=== PATIENT | male | born 1945 | race Caucasian/White ===

== ENCOUNTER 2020-05-08 08:37 | Outpatient (CLI) | payer MEDICARE, OTHER, SELFPAY ==
--- NOTE | ~2020-05-08 | CT_ITS ---
EXAMINATION: CT hip LT wo con DATE: 05/08/2020 09:04 INDICATION: Left hip pain TECHNIQUE: High resolution computed tomography (CT) of the left hip was performed without intravenous contrast. Additional sagittal and coronal reconstructions were performed. Automated exposure control and iterative reconstruction technique were employed. The dose-length product was 564.02 mGy-cm. COMPARISON: Left hip MRI dated 12/09/2018 FINDINGS: Bipolar type right hip hemiarthroplasty on the dining room helper topogram which results in some metallic streak a rtifact which extends across the pelvis and left hip. Old healed fracture left femoral neck which is fixed with 3 lag screws with washers. The distal tip of one of the fixation screws extends to the lev el of but not definitively beyond the articular cortex. The heads of the screws have backed out sligh tly from the lateral margin of the cortex at the greater trochanter suggesting some impaction of the fracture occurring during the course of healing. There is an approximately 4 x 4 x 2 cm fluid collect ion situated between the greater trochanter at the site of the screws in the more superficial fascia of the gluteus jenae and tensor fascia pooja consistent with trochanteric bursitis. Mild left hip os teoarthritis with mild nonuniform joint space narrowing and small marginal osteophytes about the left femoral head and acetabulum. No acute fractures identified. 4 mm retrolisthesis L5 on S1 with severe disc height loss with vacuum phenomena and mild degenerative endplate changes. Disc bulges resulting in mild central canal stenosis at L4-L5. Lower lumbar facet osteoarthritis, moderate on the right and mild on the left at L4-L5 and moderate bilaterally at L5-S1 . This contributes to moderate neural from stenosis on the left at L5-S1 and mild stenosis at the rem aining L4-L5 and L5-S1 neural foramina. Atherosclerotic calcifications in the bilateral] arteries. Pr ostatomegaly. No free fluid in the pelvis. No pathologically enlarged left pelvic or inguinal lymphad enopathy. IMPRESSION: 1. Screw fixation of an old healed fracture of the left femoral neck with mild osteoarthritis at the left hip. 2. 4 x 4 by 2 cm trochanteric bursal fluid collection surrounding the mildly backed out heads of the left femoral neck fixation screws consistent with trochanteric bursitis. 3. Moderate to severe lumbosacral spondylosis. Reviewed, dictated and finalized at location B. PACKER IMPRESSION: 1. Screw fixation of an old healed fracture of the left femoral neck with mild osteoarthritis at the left hip. 2. 4 x 4 by 2 cm trochanteric bursal fluid collection surrounding the mildly ba cked out heads of the left femoral neck fixation screws consistent with trochan teric bursitis. 3. Moderate to severe lumbosacral spondylosis.
== END 2020-05-08 08:38 | disposition home or self-care (01) ==
PROVIDERS: PCP Family Medicine; Visit Provider Orthopaedic Surgery
DX: M47.896 Other spondylosis, lumbar region (principal)
CPT/HCPCS: 73700

== ENCOUNTER 2020-05-28 08:35 | Outpatient (CLI) | payer MEDICARE, OTHER, SELFPAY ==
--- NOTE | 2020-05-28 08:30 | ECG_ITS ---
Measurements Intervals [place] Rate: 68 P: 5 WI: 168 QRS: 9 QRSD: 94 T: 66 QT: 401 QTc: 427 Interpretive Statements SINUS RHYTHM BASELINE ARTIFACT- I, II, AVR, AVL, AVF NORMAL ECG Electronically Signed On 05-28-2020 9:32:38 CDT by Gareth Kulkarni D.O.
== END 2020-05-28 08:36 | disposition home or self-care (01) ==
PROVIDERS: PCP Family Medicine; Visit Provider Orthopaedic Surgery
DX: Z01.818 Encounter for other preprocedural examination (principal); I10 Essential (primary) hypertension
CPT/HCPCS: 93005

== ENCOUNTER → 2020-05-29 00:11 | Outpatient (CLI) | payer MEDICARE, OTHER, SELFPAY ==
[2020-05-29 17:44] LABS: SARS-CoV-2 RNA PCR Negative
== END ==
PROVIDERS: PCP Family Medicine; Visit Provider Orthopaedic Surgery
DX: Z01.812 Encounter for preprocedural laboratory examination (principal); Z20.822 Contact with and (suspected) exposure to COVID-19
CPT/HCPCS: C9803; U0003; U0005

== ENCOUNTER 2020-06-01 00:59 | Day surgery (SDC) | payer MEDICARE, OTHER, SELFPAY ==
[2020-05-25 14:56] VITALS: BMI 25.7
--- NOTE | 2020-05-29 13:32 | PM.IMHP ---
H&P: HPI History of Present Illness Date/Time: 05/29/20 13:32 74 y/o male patient of Dr. Leyva.Patient presents today for removal hardware left hip. He had a valgus impacted femoral neck fracture that was treated with percutaneous pinning in 2018. during his recovery is had some impaction of the fracture and the screws have become prominent in the lateral aspect of the hip causing irritation regular basis. Also 1 of the screws is very close to the subchondral bone and there was concern that this may penetrate through to the hip joint itself. He has been having continued symptoms of irritation of the bursal tissue and feels he would like to have the screws removed. <TONEY Allen - Last Filed: 05/29/20 13:42> Chief Complaint: Painful hardware left hip <TONEY Allen - Last Filed: 05/29/20 13:42> Review of Systems Review of Systems: All systems reviewed & are unremarkable except as noted in HPI and below <TONEY Allen - Last Filed: 05/29/20 13:42> [facility] Past Medical History Medical History: Medical History Altered taste Broken hip left hip August 2019 Chronic neck pain Essential (primary) hypertension GERD without esophagitis Hyperlipidemia, unspecified Major depressive disorder, recurrent episode, unspecified Migraine Primary osteoarthritis of both hands <TONEY Allen - Last Filed: 05/29/20 13:42> Surgical History Surgical History: Surgical History History of repair of left hip joint 09/2018 History of right hip replacement 11/2000 [place] teeth extracted <TONEY Allen - Last Filed: 05/29/20 13:42> Social History Social History: Social History Smoking status: Never smoker Second hand tobacco smoke exposure: No Alcohol intake: current Drinks per week: 1 Substance use: never Substance use type: does not use Living arrangements: with family Gender identity (if verbalized by the patient): Male Spiritual care concerns: No <TONEY Allen - Last Filed: 05/29/20 13:42> Meds Home Medications and Allergies Home medications: Home Medications Medication Instructions Recorded Confirmed Type amlodipine 10 mg tablet 10 mg PO DAILY #90 tablet 03/09/20 06/01/20 Rx [id number]-crlhojrm 1 tablet PO Q4-6H PRN #180 tablet 03/31/20 06/01/20 Rx 50 mg-325 mg-40 mg tablet alprazolam 0.5 mg tablet 0.5 mg PO .prn PRN tablet 04/22/20 06/01/20 History Ca carb-Ca gluc-Mg ox-Mg gluco 1 tablet PO DAILY 05/25/20 06/01/20 History [Calcium Magnesium] celecoxib 200 mg PO DAILY 05/25/20 06/01/20 History cyanocobalamin (vitamin B-12) 1,000 mcg PO DAILY 05/25/20 06/01/20 History lamotrigine 50 mg PO HS 05/25/20 06/01/20 History milk thistle fruit extct,fruit 1 cap PO DAILY 05/25/20 06/01/20 History [Milk Thistle Extract] multivitamin,ay-qjeo-wxgkusim 1 tablet PO DAILY 05/25/20 06/01/20 History [Complete Multivitamin] selenium [Selenimin] 50 mcg PO DAILY 05/25/20 06/01/20 History venlafaxine 150 mg PO BID 05/25/20 06/01/20 History atorvastatin 40 mg PO DAILY 06/01/20 06/01/20 History ezetimibe 10 mg PO DAILY 06/01/20 06/01/20 History <TONEY Allen - Last Filed: 05/29/20 13:42> Allergies/Adverse reactions: Allergies Allergy/AdvReac Type Severity Reaction Status Date / Time bacitracin Allergy Severe BLISTERS Verified 06/01/20 10:14 neomycin Allergy Severe BLISTERS Verified 06/01/20 10:14 polymyxin B Allergy Severe BLISTERS Verified 06/01/20 10:14 venom-honey bee Allergy Severe ANAPHALACTI Verified 05/25/20 14:19 C codeine AdvReac Severe ITCHING Verified 06/01/20 10:14 <TONEY Allen - Last Filed: 05/29/20 13:42> Exam Narrative: Exam Narrative: 74-year-old male very alert pleasant. He walks well without limp. He has some gxmp-kd-wabzakfm ten
[2020-06-01] VITALS (9 sets, daily range): BP systolic 87–175; BP diastolic 48–90; PULSE 52–88; RESP 8–20; TEMP 36.6–36.7; O2SAT 97–99
--- NOTE | ~2020-06-01 | XR_ITS ---
EXAMINATION: XR surgery orthopedic EXAM DATE: 06/01/2020 13:16 INDICATION: Left hip hardware removal. TECHNIQUE: Fluoroscopy used during left hip lag screw removal performed by Dr. Tank Viveros MD. Radiologist was not present for the imaging or procedure. Total fluoroscopic time of 0.4 minutes. A total of 4 images obtained for the exam. The DAP for this procedure was 0.08 mGym2. FINDINGS: Initial image demonstrates 3 left hip lag screws, subsequent images demonstrate these havi ng been removed. Correlate with procedure note. IMPRESSION: Fluoroscopy used during left hip screw removal. Reviewed, dictated and finalized at location A.
[2020-06-01] MEDS: ACETAMINOPHEN 500 MG TABLET 1000 MG PO (10:27)
[2020-06-01] MEDS: LACTATED RINGERS 1,000 ML 30 ML IV CONT ×2 (11:05→13:15)
[2020-06-01] MEDS: KETOROLAC 15 MG/ML VIAL (*BKC) IV PUSH (11:10)
--- NOTE | 2020-06-01 11:17 | WPDHPUPDATE1 ---
History and Physical Update Update Date/Time: 06/01/20 11:17 History and Physical has been reviewed, including an updated exam of the patient. There are NO changes in the patient's condition. Risks, benefits, and alternatives have been discussed and questions answered. Patient agrees to proceed with procedure.
--- NOTE | 2020-06-01 11:46 | WPDANESEPPF ---
Anes - Initial Pre Proc Eval Procedure: Operation Date: 06/01/20 12:00 Proposed Procedures p Removal Hardware Left Hip - Tank Viveros MD Date/Time: 06/01/20 11:46 Surgeon: Tank Viveros MD Pre Op Diagnosis: Left Hip Pain Patient Data Age: 74 Gender: M Height: 6 ft Weight: 81.2 kg Last Vital Signs Temp 36.7 C 06/01/20 10:12 Pulse 88 06/01/20 10:12 Resp 20 06/01/20 10:12 BP 175/87 H 06/01/20 10:12 Pulse Ox 99 06/01/20 10:12 Allergies Allergy/AdvReac Type Severity Reaction Status Date / Time bacitracin Allergy Severe BLISTERS Verified 06/01/20 10:14 neomycin Allergy Severe BLISTERS Verified 06/01/20 10:14 polymyxin B Allergy Severe BLISTERS Verified 06/01/20 10:14 venom-honey bee Allergy Severe ANAPHALACTI Verified 05/25/20 14:19 C codeine AdvReac Severe ITCHING Verified 06/01/20 10:14 Home Medications Medication Instructions Recorded Confirmed Type amlodipine 10 mg tablet 10 mg PO DAILY #90 tablet 03/09/20 06/01/20 Rx dmpgpgiwfw-zkldhoihcavsa-jmzpgiyz 1 tablet PO Q4-6H PRN #180 tablet 03/31/20 06/01/20 Rx 50 mg-325 mg-40 mg tablet alprazolam 0.5 mg tablet 0.5 mg PO .prn PRN tablet 04/22/20 06/01/20 History Ca carb-Ca gluc-Mg ox-Mg gluco 1 tablet PO DAILY 05/25/20 06/01/20 History [Calcium Magnesium] celecoxib 200 mg PO DAILY 05/25/20 06/01/20 History cyanocobalamin (vitamin B-12) 1,000 mcg PO DAILY 05/25/20 06/01/20 History lamotrigine 50 mg PO HS 05/25/20 06/01/20 History milk thistle fruit extct,fruit 1 cap PO DAILY 05/25/20 06/01/20 History [Milk Thistle Extract] multivitamin,lf-gawm-oojebuwx 1 tablet PO DAILY 05/25/20 06/01/20 History [Complete Multivitamin] selenium [Selenimin] 50 mcg PO DAILY 05/25/20 06/01/20 History venlafaxine 150 mg PO BID 05/25/20 06/01/20 History atorvastatin 40 mg PO DAILY 06/01/20 06/01/20 History ezetimibe 10 mg PO DAILY 06/01/20 06/01/20 History Patient hx anesthesia problems: other (taste change ) Family hx anesthesia problems: none PMFSH Past Medical History Medical History Altered taste Broken hip left hip August 2019 Chronic neck pain Essential (primary) hypertension GERD without esophagitis Hyperlipidemia, unspecified Major depressive disorder, recurrent episode, unspecified Migraine Primary osteoarthritis of both hands Surgical History Surgical History History of repair of left hip joint 09/2018 History of right hip replacement 11/2000 [place] teeth extracted Social History Social History Smoking status: Never smoker Second hand tobacco smoke exposure: No Alcohol intake: current Drinks per week: 1 Substance use: never Substance use type: does not use Living arrangements: with family Gender identity (if verbalized by the patient): Male Spiritual care concerns: No Anes - Eval Final PreProcedure Day of Procedure 06/01/20 11:46 Patient weight: normal Heart: regular rate and rhythm Lungs: clear to auscultation Airway: Mallampati scale class II Neurological: alert and oriented Last oral intake: >/= 8 hours ASA classification: III Emergent: no Anesthetic plan: proceed Anesthesia type and monitoring: general LMA and standard monitoring Other findings: Tiva Informed Consent: The patient's anesthetic plan and its attendant risks and benefits were discussed with the patient/family/POA. Questions were solicited and answers provided to the satisfaction of the patient/family/POA.
[2020-06-01] MEDS: ceFAZolin 2 GM/D5W 50 ML 2 GM/50 ML BAG IVPB (11:57)
[2020-06-01] MEDS: ceFAZolin SODIUM 1 GM VIAL IV PUSH (12:43)
--- NOTE | 2020-06-01 13:21 | P.OP_ITS ---
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 Post-op diagnosis: same Procedure performed: For removal of painful hardware left femoral neck. Description of procedure: Patient was brought to the operating room and sedation was given and he was placed on the fracture table and the left hip prepped draped usual fashion. The right hip was flexed abducted out of the way case he needed lateral x-ray views to find loose washers. The previous incision was utilized approximately 1/2 inches in length after administration of 10 cc of 1% plain local lidocaine. The fascia was incised longitudinally in line with the incision. There is bursal tissue underneath there was hypertrophic over the screw heads and this was excised. The screws were localized wanted at time by inserting a guidewire and then the screwdriver over the guidewire and the time we were careful to free the washer up and secured so would come out with screw and we removed all 3 screws and washers in this fashion without difficulty. The wound was irrigated thoroughly with antibiotic solution hemostasis was achieved. The fascia was then closed with interrupted 1. Vicryl sutures the skin with 2 subcutaneous Vicryl and glue and a Mepilex dressing applied the patient transferred postop recovery good condition. There no complications. Implants: 7.3 mm Synthes cannulated screws and washers were removed. Anesthesia: MAC and local Surgeon: Tank Viveros MD Resident Assistant: Rhianna Estimated blood loss (mL): 5 Drains: No Packing: No Pathology: none sent Complications: No immediate complications Condition: stable Disposition: PACU
== END 2020-06-01 15:05 | disposition home or self-care (01) ==
PROVIDERS: PCP Family Medicine; Visit Provider Orthopaedic Surgery
PROC: (CPT 20680; principal; 2020-06-01 12:00)
DX: T84.84XA Pain due to internal orthopedic prosthetic devices, implants and grafts, initial encounter (principal); Y83.8 Other surgical procedures as the cause of abnormal reaction of the patient, or of later complication, without mention of misadventure at the time of the procedure; M25.552 Pain in left hip; I10 Essential (primary) hypertension; K21.9 Gastro-esophageal reflux disease without esophagitis; E78.5 Hyperlipidemia, unspecified; F32.9 Major depressive disorder, single episode, unspecified
CPT/HCPCS: 20680; A9270; J0690; J1100; J1885; J2370; J2405; J2704; J3010; J7120

== ENCOUNTER 2020-07-15 11:57 | Outpatient (CLI) | payer MEDICARE, OTHER, SELFPAY ==
[2020-07-15 13:41] LABS: Vitamin D 25 Hydroxy 36.3 ng/mL
== END 2020-07-15 11:58 | disposition home or self-care (01) ==
PROVIDERS: PCP Family Medicine; Visit Provider Orthopaedic Surgery
DX: E55.9 Vitamin D deficiency, unspecified (principal)
CPT/HCPCS: 36415; 82306

== ENCOUNTER 2020-07-23 12:01 | Outpatient (CLI) | payer MEDICARE, OTHER, SELFPAY ==
[2020-07-23 13:24] LABS: Basophils Percent Auto 0.5 % (0.2-1.2); Eosinophils Absolute Auto 0.3 K/mm3 (0-0.3); Eosinophils Percent Auto 5.1 % (0-4.4); Hematocrit 42.5 % (42.0-52.0); Immature Granulocyte Absolute 0.02 K/mm3 (0.00-0.031); Immature Granulocyte Percent A 0.4 % (0-0.5); Lymphocytes Absolute Auto 1.36 K/mm3 (0.9-3.2); Lymphocytes Percent Auto 24.7 % (18.3-44.2); Mean Corpuscular HGB Conc 32.9 g/dl (32-36); Mean Platelet Volume 8.8 fl (7.4-10.4); Monocytes Absolute Auto 0.6 K/mm3 (0.1-0.6); Monocytes Percent Auto 11.3 % (2.6-8.5); Neutrophils Absolute Auto 3.2 K/mm3 (1.3-6.7); Platelet Count Result 270 k/mm3 (150-375); Red Blood Count 4.52 M/mm3 (4.6-6.20); Red Cell Distribution Width 12.4 % (11.5-14.5); White Blood Count 5.5 K/mm3 (4.5-10.0)
[2020-07-23 13:40] LABS: Hemoglobin A1C 5.4 % (<5.7)
[2020-07-23 13:49] LABS: Urine Cotinine NEGATIVE
[2020-07-23 16:46] LABS: Albumin Level 4.2 g/dL (3.5-5.1); Anion Gap 5 mmol/L (8-16); Blood Urea Nitrogen 23 mg/dL (9-20); Calcium 9.7 mg/dL (8.4-10.2); Carbon Dioxide 34 mmol/L (22-30); Chloride 100 mmol/L (98-107); Estimated Glomerular Filt Rate > 60; Glucose 90 mg/dL (75-110); Potassium 4.3 mmol/L (3.4-5.0); Sodium 139 mmol/L (137-145)
== END 2020-07-23 12:02 | disposition home or self-care (01) ==
LOC: ANHSURGERY 12:05
PROVIDERS: PCP Family Medicine; Visit Provider Orthopaedic Surgery
DX: Z01.812 Encounter for preprocedural laboratory examination (principal); M87.052 Idiopathic aseptic necrosis of left femur
CPT/HCPCS: 80048; 80307; 82040; 83036; 85025; 87070

== ENCOUNTER → 2020-08-04 03:06 | Outpatient (CLI) | payer MEDICARE, OTHER, SELFPAY ==
[2020-08-04 18:14] LABS: SARS-CoV-2 RNA PCR Negative
== END ==
PROVIDERS: PCP Family Medicine; Visit Provider Orthopaedic Surgery
DX: Z01.812 Encounter for preprocedural laboratory examination (principal); Z20.822 Contact with and (suspected) exposure to COVID-19
CPT/HCPCS: C9803; U0003; U0005

== ENCOUNTER 2020-08-07 01:29 | Day surgery (SDC) | payer MEDICARE, OTHER, SELFPAY ==
[2020-07-23 12:32] VITALS: BP 140/80; PULSE 74; RESP 20; TEMP 36.5; O2SAT 94; BMI 25.2
--- NOTE | 2020-08-05 08:40 | PM.IMHP ---
H&P: HPI History of Present Illness Date/Time: 08/05/20 08:[id number] male patient of Dr. Leyva who presents today for a left anterior total hip arthroplasty. Patient sustained a left femoral neck fracture in 2018. This was treated in [place] with bending. 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 The screws did become prominent and were removed in May of this year which gave him temporary relief the soreness than lateral hip from the prominent screws. Unfortunately since that time he has had continued collapse the femoral head as well as fracturing of the superior aspect of the femoral head. Patient and is in miserable pain daily. He has been using crutches on a daily basis to keep weight off the leg to try to control his symptoms. Patient feels he is ready proceed with total hip arthroplasty at this point rather continue nonsurgical treatment. <TONEY Allen - Last Filed: 08/05/20 08:47> Chief Complaint: Left hip avascular necrosis <TONEY Allen - Last Filed: 08/05/20 08:47> Review of Systems Review of Systems: All systems reviewed & are unremarkable except as noted in HPI and below <TONEY Allen - Last Filed: 08/05/20 08:47> [facility] Past Medical History Medical History: Medical History Altered taste Broken hip left hip August 2019 Chronic neck pain Essential (primary) hypertension GERD without esophagitis Hyperlipidemia, unspecified Major depressive disorder, recurrent episode, unspecified Migraine Primary osteoarthritis of both hands <TONEY Allen - Last Filed: 08/05/20 08:47> Surgical History Surgical History: Surgical History History of repair of left hip joint 09/2018 History of right hip replacement 11/2000 [place] teeth extracted <TONEY Allen - Last Filed: 08/05/20 08:47> Social History Social History: Social History Smoking status: Never smoker Second hand tobacco smoke exposure: No Alcohol intake: current Drinks per week: 1 Substance use: never Substance use type: does not use Living arrangements: with family Gender identity (if verbalized by the patient): Male Spiritual care concerns: No <TONEY Allen - Last Filed: 08/05/20 08:47> Meds Home Medications and Allergies Home medications: Home Medications Medication Instructions Recorded Confirmed Type alprazolam 0.5 mg tablet 0.5 mg PO .prn PRN tablet 04/22/20 08/07/20 History Ca carb-Ca gluc-Mg ox-Mg gluco 1 tablet PO DAILY 05/25/20 08/07/20 History [Calcium Magnesium] celecoxib 200 mg PO QAM 05/25/20 08/07/20 History lamotrigine 50 mg PO HS 05/25/20 08/07/20 History milk thistle fruit extct,fruit 1 cap PO DAILY 05/25/20 08/07/20 History [Milk Thistle Extract] multivitamin,xd-kbjx-cnxdheap 1 tablet PO DAILY 05/25/20 08/07/20 History [Complete Multivitamin] venlafaxine 150 mg PO BID 05/25/20 08/07/20 History ezetimibe [Zetia] 10 mg PO DAILY 06/01/20 08/07/20 History hydrocodone 5 mg-acetaminophen 325 0.5 tablet PO Q4-6H tablet 07/20/20 08/07/20 History mg tablet amlodipine 10 mg PO QAM 07/23/20 08/07/20 History atorvastatin 40 mg tablet See Rx Instructions .ROUTE 07/24/20 Rx .COMPLEX #90 tablet <TONEY Allen - Last Filed: 08/05/20 08:47> Allergies/Adverse reactions: Allergies Allergy/AdvReac Type Severity Reaction Status Date / Time bacitracin Allergy Severe BLISTERS Verified 08/07/20 06:35 neomycin Allergy Severe BLISTERS Verified 08/07/20 06:35 polymyxin B Allergy Severe BLISTERS Verified 08/07/20 06:35 venom-honey bee Allergy Severe ANAPHALACTI Verified 08/07/20 06:35 C codeine AdvReac Severe Hallucinating Verified 08/07/20 06:35 & ITCHING <TONEY Allen - Last Filed: 08/05/20 08:47> Exam Narrative: Exam Narrative: 75-y
[2020-08-07] VITALS (13 sets, daily range): BP systolic 108–198; BP diastolic 55–91; PULSE 63–98; RESP 9–20; TEMP 36–36.8; O2SAT 95–100; BMI 24.6
--- NOTE | ~2020-08-07 | XR_ITS ---
EXAMINATION: XR surgery orthopedic EXAM DATE: 08/07/2020 11:21 INDICATION: Anterior approach left hip arthroplasty. TECHNIQUE: Fluoroscopy used during left hip arthroplasty performed by Dr. Tank Viveros MD. Radi ologist was not present for the imaging or procedure. Total fluoroscopic time of 45 seconds. The DA P for this procedure was 0.25 mGym2. A total of 3 images sent to PACS from the exam. FINDINGS: Frontal projections demonstrates left hip arthroplasty hardware in expected position. Cor relate with procedure note. IMPRESSION: Fluoroscopy used during left hip arthroplasty. Reviewed, dictated and finalized at location B.
--- NOTE | ~2020-08-07 | XR_ITS ---
EXAMINATION: XR hip LT 1V w AP pelvis EXAM DATE: 08/07/2020 11:43 INDICATION: Left arthroplasty. TECHNIQUE: Frontal projection pelvis (bilateral arthroplasty hardware imaged), lateral crosstable pr ojection left hip. Both obtained immediately postoperative. FINDINGS: Left hip arthroplasty with some gas overlying the surgical site. Hardware is in expected p osition. Patient had previous right hip arthroplasty. IMPRESSION: Arthroplasty hardware in expected position. Reviewed, dictated and finalized at location B.
[2020-08-07] MEDS: LACTATED RINGERS 1,000 ML 30 ML IV CONT ×2 (06:50→11:46)
[2020-08-07] MEDS: ACETAMINOPHEN 500 MG TABLET 1000 MG PO ×3 (06:50→17:58)
[2020-08-07] MEDS: TRANEXAMIC ACID 1,000MG/ISO100 1,000 MG/100 ML BAG 200 MG IVPB (06:55)
--- NOTE | 2020-08-07 06:58 | WPDHPUPDATE1 ---
History and Physical Update Update Date/Time: 08/07/20 06:58 History and Physical has been reviewed, including an updated exam of the patient. There are NO changes in the patient's condition. Risks, benefits, and alternatives have been discussed and questions answered. Patient agrees to proceed with procedure.
--- NOTE | 2020-08-07 07:02 | WPDANESEPPF ---
Anes - Initial Pre Proc Eval Procedure: Operation Date: 08/07/20 07:30 Proposed Procedures p Left Total Hip Arthroplasty, Direct Anterior Approach - Tank Viveros MD Date/Time: 08/07/20 07:02 Surgeon: Tank Viveros MD Pre Op Diagnosis: AVN left hip Patient Data Age: 75 Gender: M Height: 6 ft Weight: 84.6 kg Last Vital Signs Temp 36.5 C 07/23/20 12:32 Pulse 74 07/23/20 12:32 Resp 20 07/23/20 12:32 BP 140/80 07/23/20 12:32 Pulse Ox 94 07/23/20 12:32 Allergies Allergy/AdvReac Type Severity Reaction Status Date / Time bacitracin Allergy Severe BLISTERS Verified 08/07/20 06:35 neomycin Allergy Severe BLISTERS Verified 08/07/20 06:35 polymyxin B Allergy Severe BLISTERS Verified 08/07/20 06:35 venom-honey bee Allergy Severe ANAPHALACTI Verified 08/07/20 06:35 C codeine AdvReac Severe Hallucinating Verified 08/07/20 06:35 & ITCHING Home Medications Medication Instructions Recorded Confirmed Type alprazolam 0.5 mg tablet 0.5 mg PO .prn PRN tablet 04/22/20 08/07/20 History Ca carb-Ca gluc-Mg ox-Mg gluco 1 tablet PO DAILY 05/25/20 08/07/20 History [Calcium Magnesium] celecoxib 200 mg PO QAM 05/25/20 08/07/20 History lamotrigine 50 mg PO HS 05/25/20 08/07/20 History milk thistle fruit extct,fruit 1 cap PO DAILY 05/25/20 08/07/20 History [Milk Thistle Extract] multivitamin,xb-ltqm-wsctwblv 1 tablet PO DAILY 05/25/20 08/07/20 History [Complete Multivitamin] venlafaxine 150 mg PO BID 05/25/20 08/07/20 History ezetimibe [Zetia] 10 mg PO DAILY 06/01/20 08/07/20 History hydrocodone 5 mg-acetaminophen 325 0.5 tablet PO Q4-6H tablet 07/20/20 08/07/20 History mg tablet amlodipine 10 mg PO QAM 07/23/20 08/07/20 History atorvastatin 40 mg tablet See Rx Instructions .ROUTE 05/21/21 Rx .COMPLEX #90 tablet Patient hx anesthesia problems: other (loss of taste slow rxn time) Family hx anesthesia problems: none PMFSH Past Medical History Medical History Altered taste Broken hip left hip August 2019 Chronic neck pain Essential (primary) hypertension GERD without esophagitis Hyperlipidemia, unspecified Major depressive disorder, recurrent episode, unspecified Migraine Primary osteoarthritis of both hands Surgical History Surgical History History of repair of left hip joint 09/2018 History of right hip replacement 11/2000 [place] teeth extracted Social History Social History Smoking status: Never smoker Second hand tobacco smoke exposure: No Alcohol intake: current Drinks per week: 1 Substance use: never Substance use type: does not use Living arrangements: with family Gender identity (if verbalized by the patient): Male Spiritual care concerns: No Anes - Eval Final PreProcedure Day of Procedure 08/07/20 07:02 Patient weight: normal Heart: regular rate and rhythm Lungs: clear to auscultation Airway: Mallampati scale class II Neurological: alert and oriented Last oral intake: >/= 8 hours ASA classification: III Emergent: no Anesthetic plan: proceed Anesthesia type and monitoring: general ETT and standard monitoring Other findings: TIVA Informed Consent: The patient's anesthetic plan and its attendant risks and benefits were discussed with the patient/family/POA. Questions were solicited and answers provided to the satisfaction of the patient/family/POA.
[2020-08-07] MEDS: ceFAZolin 2 GM/D5W 50 ML 2 GM/50 ML BAG IVPB (07:45)
[2020-08-07] MEDS: ceFAZolin SODIUM 1 GM VIAL 3 GM IRRIGATION (10:02)
[2020-08-07] MEDS: ceFAZolin SODIUM 1 GM VIAL IV PUSH (11:08)
[2020-08-07] MEDS: TRANEXAMIC ACID 1,000 MG/10 ML AMPUL 1000 MG IV PUSH (11:09)
--- NOTE | 2020-08-07 11:36 | PM.PROC ---
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 He received 2 g of Ancef weight based vancomycin 1 g of tranexamic acid preoperatively. He was placed on the OSI [place] table. SCDs placed in the leg. The traction boots placed on the feet were well padded. Left hip was prepped draped usual fashion. A 10 cm longitudinal incision was made starting 3 cm lateral to the ASIS. The fascia over the tensor fascia pooja was exposed and incised longitudinally and elevated off the anterior 1/2 tensor fascia pooja muscle. The interval between tensor fascia pooja and rectus femoris developed. The ascending branches of the lateral femoral circumflex vessels were ligated with suture divided. Ileal capsular is was elevated off anterior capsule. The hip was abducted internally rotated and the gluteus minimus elevated off the lateral capsule. Standard capsulotomy was performed. Femoral neck osteotomy was made according to preoperative templating. The bone density in the femoral neck was only fair. Anterior capsule was elevated off anterior femur. We drilled a corkscrew into the femoral head and met no resistance to speak of and the corkscrew pulled out and we could see that the femoral head was in 2 have some the corkscrew was going in the fissure. The various pieces of the femoral head removed without difficulty and essentially he had advanced avascular necrosis of the entire femoral head. Sheets of articular cartilage with thin layer of subchondral bone were remaining in the joint which were removed. The femur was externally rotated and extended. The tip of the lateral capsule was excised. The interval between piriformis tendon and conjoined tendon was incised allowing the conjoined tendon to recess medially improving exposure. With the leg horizontal externally rotated the acetabulum was exposed. The labrum was excised and there E articular cartilage curetted from the acetabular fossa. We medialized the floor of the fovea with a 44 Reamer. We then reamed with the 51 53 and this did not reach the periphery to we removed the 55. Fifty-five trial was a nice snug fit. Therefore we lightly reamed with the 56 and we chose the 56 shell [place] which was impacted and fully seated at 40? of abduction and anteversion referenced off his anterior and posterior kaba. Excellent Press-Fit was achieved. A screw was inserted up into the ilium for additional fixation and the 36 mm inner diameter liner was fully seated without difficulty. The femur was externally rotated extended and a bur was used to enter the cancellous bone of the femoral neck because of the screw tracks that were fairly dense. I should mention that when we incised the capsule there was a moderate-sized clear yellow effusion. On severe through the cancellous bone at the mid cervical level the canal was follow consistent with significant osteopenia. We broached up to a size 8 Actis. We chose this stem as it has a collar and it is a fit and fill stem which this gentleman with a large cylindrical proximal femur would require. The 8 had torsional stability. We reduced this and trialed with the +5 neck standard offset which is what we templated to. Templating of course was difficult because he had a previous bipolar on the other side and deformity on the left side from his immediate postoperative films. This neck length restored the leg length to our preoperative plan but it was a little bit loose. We went up to the 8.5 which lengthen him a little bit more than we had wanted particularly since the right side was shorter after is bipolar, and the hip was still a little bit loose. I could see that a size 9 broach would likely fit
--- NOTE | 2020-08-07 13:10 | SUR.PHASEI ---
SLIGHT TREMOR NOTED IN RIGHT HAND; PATIENT STATES HE DID NOT THIS PRIOR TO SURGERY. DR. GALARZA NOTIFIED; INSTRUCTED TO MONITOR.
--- NOTE | 2020-08-07 13:31 | ADMGEN ---
This patient, Darian Quinones, was admitted to -. Patient/family oriented to hospital policies and general routines including ID bracelet, bed and alarms, visiting hours, pain management, procedures, bathroom and other care routines, personal items, smoking policy, room service/diet, and visiting hours. Information on how to activate the Rapid Response Team has been discussed. Patient/Family are encouraged to report perceived risks to care and to ask questions if they do not understand what they are told or what they should do.
--- NOTE | 2020-08-07 14:00 | PC.NURSE ---
Patient arrived from OR complaining of intense urge to void. Assisted patient to sit on side of bed and use urinal but no success. At 1400, patient still feeling intense urge to void. Assisted to bathroom via sunny steady and assisted with urinal. 5 cc bloody urine noted in urinal. Bladder scanned patient and 850 cc noted in bladder. Notified Rafia Hernández INSPECTOR [employer]AC[employer]ITIES of results and order received to straight cath patient. Straight cathed patient and no urine back initially. Irrigated with 60 cc normal saline and large clot obtained. After obtained, 1000 cc clear yellow urine returned. Patient had immediate relief of urinary symptoms. Will continue to monitor.
--- NOTE | 2020-08-07 14:36 | PM.IMCN ---
Assessment and Plan Assessment and plan (1) Urinary retention: Code(s): R33.9 - Retention of urine, unspecified Status: Acute Assessment and Plan: Of bladder scanner was performed and it shows 900 mL of urine in the bladder. The patient initially was straight cath without any urine return. The straight cath was irrigated and 3 small clots were obtained. The urine was than clear and draining without difficulty. I explained that we would only do a 1 time straight cath and not leave a Hickman catheter in there because I did not want to delay his discharge. The patient was draining urine without difficulty after this. In the event that he continues to have problems we make consult urology. However his urine was coming back clear after the 3 clots were obtained. (2) History of total left hip arthroplasty: Code(s): Z96.642 - Presence of left artificial hip joint Status: Acute Assessment and Plan: See postoperative note. Postop care per Ortho physician. DVT prophylaxis per orthopedic physician. PT and OT per orthopedic physician. Pain management per orthopedic physician (3) Anxiety: Code(s): F41.9 - Anxiety disorder, unspecified Status: Chronic Assessment and Plan: The patient is on Xanax p.r.n. he is also on Effexor (4) Hyperlipidemia, unspecified: Qualifiers: Hyperlipidemia type: unspecified Qualified Code(s): E78.5 - Hyperlipidemia, unspecified Code(s): E78.5 - Hyperlipidemia, unspecified Status: Chronic Assessment and Plan: Continue with Zetia (5) Essential (primary) hypertension: Code(s): I10 - Essential (primary) hypertension Status: Acute Assessment and Plan: Continue with amlodipine (6) Major depressive disorder, recurrent episode, unspecified: Qualifiers: Major depression episode severity: unspecified Qualified Code(s): F33.9 - Major depressive disorder, recurrent, unspecified Code(s): F33.9 - Major depressive disorder, recurrent, unspecified Status: Acute Assessment and Plan: Continue with Effexor. [facility] Data [facility] Consult Consult date: 08/07/20 Requesting Physician: Tank Viveros MD Primary Care Provider: Tess Leyva MD Consult Narrative Narrative: Darian Quinones is a 75 year old male who has a history of a left femoral neck fracture in 2019 that was pinned in [place]. The patient developed avascular necrosis following the pending. The patient has been having severe pain on a daily basis. The screws were became more prominent and they were removed May of this year. The patient has been ambulating by using crutches. The patient pretty much has been nonweightbearing. The pain was intolerable when he would bear weight. The patient was agreeable to proceed with a total hip arthroplasty to the left today. Please see operative note. Postoperatively the patient was having difficulty urinating. A bladder scan was performed and the scanner read as 900 mL in the bladder. The nurse performed a straight cath and no urine return was noted. We irrigated the straight catheter and obtained a small amount of blood clots. After that the urine was draining clearly in the straight cath. Patient states that he was getting relief from the distention from the distended bladder. The patient stated that he only has mild discomfort at this time. His drain is intact to the left hip. Please see Dr. viveros's operative note for the posttraumatic avascular necrosis left femoral head stage IV. This is a consultation on a regular sdc on the date of service on 08/07/2020. Review of Systems Review of Systems: All systems reviewed & are unremarkable except as noted in HPI and below Constitutional: Constitutional: Reports as per HPI and Reports no additional constitutional complaints Eyes: Eyes: Reports as per HPI and Reports no additional eye complaints ENT: Reports system reviewed and
[2020-08-07] MEDS: oxyCODONE HCL (*CRX) 5 MG TAB IR PO ×3 (15:22→21:11)
[2020-08-07 16:49] LABS: Hematocrit 35.7 % (42.0-52.0); Hemoglobin 11.6 g/dL (14.0-18.0)
[2020-08-07] MEDS: BENZOCAINE/MENTHOL (*BKC) 18 EA LOZENGE 1 LOZENGE PO (17:31)
[2020-08-07] MEDS: SENNA/DOCUSATE SODIUM TABLET 2 TAB PO (17:58)
--- NOTE | 2020-08-07 19:00 | PC.NURSE ---
Patient having trouble urinating again. Attempted several times and unable. Bladder scan reveals >450 cc urine in bladder. Notified Rafia Hernández APPLICATIONS ANALYST and orders received to insert redd catheter. Catheter inserted and no urine output. Irrigated with 60 cc normal saline and small clot removed. Urine began running freely - clear yellow. 525 cc urine obtained.
[2020-08-07] MEDS: APIXABAN 2.5 MG TABLET PO (21:10)
[2020-08-07] MEDS: lamoTRIgine 25 MG TABLET 50 MG PO (21:10)
[2020-08-07] MEDS: FAMOTIDINE 20 MG TABLET PO (21:10)
[2020-08-07] MEDS: VENLAFAXINE HCL XR 75 MG CAP.ER.24H 150 MG PO (21:11)
[2020-08-08 00:19] VITALS: BP 134/71; PULSE 89; RESP 18; TEMP 36.9; O2SAT 93
[2020-08-08] MEDS: ACETAMINOPHEN 500 MG TABLET 1000 MG PO ×3 (00:47→12:49)
[2020-08-08] MEDS: oxyCODONE HCL (*CRX) 5 MG TAB IR PO ×4 (00:47→16:03)
[2020-08-08 05:46] LABS: Basophils Percent Auto 0.1 % (0.2-1.2); Hematocrit 33.6 % (42.0-52.0); Immature Granulocyte Absolute 0.06 K/mm3 (0.00-0.031); Immature Granulocyte Percent A 0.6 % (0-0.5); Lymphocytes Absolute Auto 0.78 K/mm3 (0.9-3.2); Lymphocytes Percent Auto 8.4 % (18.3-44.2); Mean Corpuscular HGB Conc 32.7 g/dl (32-36); Mean Corpuscular Hemoglobin 30.8 pg (26-34); Mean Corpuscular Volume 94.1 fl (80-100); Mean Platelet Volume 8.8 fl (7.4-10.4); Monocytes Absolute Auto 1.1 K/mm3 (0.1-0.6); Monocytes Percent Auto 12.1 % (2.6-8.5); Neutrophils Absolute Auto 7.3 K/mm3 (1.3-6.7); Neutrophils Percent Auto 78.8 % (45.5-73.1); Platelet Count Result 260 k/mm3 (150-375); Red Blood Count 3.57 M/mm3 (4.6-6.20); Red Cell Distribution Width 12.3 % (11.5-14.5); White Blood Count 9.3 K/mm3 (4.5-10.0)
[2020-08-08 06:01] VITALS: BP 141/75; PULSE 84; RESP 18; TEMP 36.6; O2SAT 97
[2020-08-08 06:09] LABS: Anion Gap 7 mmol/L (8-16); Blood Urea Nitrogen 16 mg/dL (9-20); Calcium 8.8 mg/dL (8.4-10.2); Carbon Dioxide 27 mmol/L (22-30); Chloride 105 mmol/L (98-107); Estimated CRCL calculation 69 ml/min; Estimated Glomerular Filt Rate > 60; Glucose 116 mg/dL (75-110); Potassium 4.4 mmol/L (3.4-5.0); Sodium 139 mmol/L (137-145)
[2020-08-08] MEDS: EZETIMIBE 10 MG TABLET PO (08:12)
[2020-08-08] MEDS: FAMOTIDINE 20 MG TABLET PO (08:12)
[2020-08-08] MEDS: CELECOXIB 200 MG CAPSULE PO (08:13)
[2020-08-08] MEDS: amLODIPine BESYLATE 5 MG TABLET 10 MG PO (08:13)
[2020-08-08] MEDS: VENLAFAXINE HCL XR 75 MG CAP.ER.24H 150 MG PO (08:14)
--- NOTE | 2020-08-08 08:15 | PC.NURSE ---
call to pharm for missing eliquis dose
--- NOTE | 2020-08-08 09:23 | PM.DS ---
DS: Admitting Diagnosis Admitting Diagnosis Admitting Diagnosis: Post traumatic stage IV avascular necrosis left hip DS: Discharge Diagnosis Discharge Diagnosis (1) History of total left hip arthroplasty: Code(s): Z96.642 - Presence of left artificial hip joint Status: Acute Assessment and Plan: Patient was admitted for stage IV avascular necrosis left hip and underwent direct anterior approach left total hip arthroplasty yesterday. He has had an uneventful postoperative course except for urinary retention requiring replacement of Hickman catheter last night. At time of Hickman catheter placement before his surgery yesterday there was a little bit of blood in the urine and the had some blood in the urine after placement of the catheter last evening. His urine is now clear. We will remove the Hickman catheter today as he is up and around and see if he can void. We will ask urology to see him. If he is voiding normally today we will discharge him early this evening. He was up walking up and down the halls yesterday evening and has had minimal discomfort. He will be discharged home with 9 days of Celebrex for heterotopic bone formation prophylaxis, Pepcid for some stomach protection while on the Celebrex for 9 days, oxycodone for pain control as needed, scheduled Tylenol, ira Colace and MiraLax for constipation prophylaxis, and Eliquis for 5 weeks for DVT prophylaxis. I have discontinued his alprazolam as the combination of the alprazolam and narcotic puts him at risk for respiratory depression. His bone is osteopenic and we will keep him at 50% max partial weight-bearing for the 1st 4 weeks with a walker and after that if x-rays look good advance weight-bearing as tolerated. His vitamin-D was within normal limits preoperatively and he does take calcium supplement daily. He will follow up with me in the office in 2 weeks and follow up with Urology according to their recommendations. DS: Summary Hospital Course Reason for hospitalization: Avascular necrosis necessitating left total hip replacement Hospital Course: Please see description under impression and plan Time Spent with Patient Time attestation: Total time spent providing and/or coordinating discharge services: Hospital course as above DS: Data Data Completed and Pending Pending studies at discharge: Pending at discharge 08/07/20 11:32 Surgical [PTH] Routine Labs on day of discharge: Labs from last 24 hours 08/08/20 08/08/20 08/07/20 05:34 05:34 16:44 WBC 9.3 RBC 3.57 L Hgb 11.0 L 11.6 L Hct 33.6 L 35.7 L MCV 94.1 MCH 30.8 MCHC 32.7 RDW 12.3 Plt Count 260 MPV 8.8 Immature Gran % (Auto) 0.6 H Neut % (Auto) 78.8 H Lymph % (Auto) 8.4 L [place] % (Auto) 12.1 H Eos % (Auto) 0.0 Baso % (Auto) 0.1 L Lymph # (Auto) 0.78 L [place] # (Auto) 1.1 H Eos # (Auto) 0.0 Baso # (Auto) 0.0 Abs Immat Gran (auto) 0.06 H Absolute Neuts (auto) 7.3 H Absolute Nucleated RBC 0.0 Nucleated RBC % 0.0 Sodium 139 Potassium 4.4 Chloride 105 Carbon Dioxide 27 Anion Gap 7 L BUN 16 Creatinine 0.90 Estim Creat Clear Calc 69 Estimated GFR > 60 Glucose 116 H Calcium 8.8 Discharge Plan Discharge Patient Disposition: Home, Self-Care Discharge Instructions: Maintain maximum 50% weight-bearing on left hip for 4 weeks using walker. Bone density is somewhat diminished and there is higher risk of fracture with higher levels of weight-bearing during this 1st 4 weeks. May shower with the dressing off and replace the dressing after showers. Elevate the leg when feasible. Avoid sitting in the chair for extended period of time as this will cause leg swelling. It is best to avoid taking the alprazolam while also taking narcotics. The combination of alprazolam and [place] or oxycodone can cause delirium and respiratory depression leading to overdose and possibly due
[2020-08-08] MEDS: APIXABAN 2.5 MG TABLET PO (10:08)
--- NOTE | 2020-08-08 10:26 | P.PNAN_ITS ---
Anes - Prog Note Post-Op Date/Time: 08/08/20 10:26 Cardiovascular status: normal Respiratory status: normal Airway patency: baseline Mental status: baseline Post-Op hydration status: normal Vital Signs: Last Vital Signs Temp 36.6 C 08/08/20 06:01 Pulse 84 08/08/20 06:01 Resp 18 08/08/20 06:01 BP 141/75 H 08/08/20 06:01 Pulse Ox 97 08/08/20 06:01 Pain Score (VAS): 04/15 I/O: Intake & Output 08/07/20 08/08/20 08/08/20 23:59 07:59 15:59 Intake Total 420 850 Output Total 0 905 Balance 420 -55 Laboratory Tests 08/08/20 05:34 08/08/20 05:34 08/07/20 08/08/20 08/08/20 16:44 05:34 05:34 WBC 9.3 RBC 3.57 L Hgb 11.6 L 11.0 L Hct 35.7 L 33.6 L MCV 94.1 MCH 30.8 MCHC 32.7 RDW 12.3 Plt Count 260 MPV 8.8 Immature Gran % (Auto) 0.6 H Neut % (Auto) 78.8 H Lymph % (Auto) 8.4 L [place] % (Auto) 12.1 H Eos % (Auto) 0.0 Baso % (Auto) 0.1 L Lymph # (Auto) 0.78 L [place] # (Auto) 1.1 H Eos # (Auto) 0.0 Baso # (Auto) 0.0 Abs Immat Gran (auto) 0.06 H Absolute Neuts (auto) 7.3 H Absolute Nucleated RBC 0.0 Nucleated RBC % 0.0 Sodium 139 Potassium 4.4 Chloride 105 Carbon Dioxide 27 Anion Gap 7 L BUN 16 Creatinine 0.90 Estim Creat Clear Calc 69 Estimated GFR > 60 Glucose 116 H Calcium 8.8 Post-procedural complaints: none Patient Feedback: Patient satisfied with anesthetic care.
[2020-08-08 11:08] VITALS: BP 121/48; PULSE 88; RESP 16; TEMP 37; O2SAT 95
[2020-08-08] MEDS: CEPHALEXIN 500 MG CAPSULE PO ×2 (12:49→17:26)
--- NOTE | 2020-08-08 13:14 | PC.NURSE ---
pt choosing now to hold off on scheduled dose of oxycodone, will continue to monitor
--- NOTE | 2020-08-08 13:23 | WPDURCON ---
Assessment and Plan Assessment and plan (1) Urinary retention: Code(s): R33.9 - Retention of urine, unspecified Status: Acute Assessment and Plan: started tamsulosin trial of voiding today Redd and likely need for discharge if not able to void (2) Hematuria: Qualifiers: Hematuria type: gross Qualified Code(s): R31.0 - Gross hematuria Code(s): R31.9 - Hematuria, unspecified Status: Acute Assessment and Plan: On Eliquis, offered and rec cystoscopy as outpatient. He has appointment pending. Urology Consult Note HPI Date Seen: 08/08/20 Requesting Physician: Tank Viveros MD Primary Care Provider: Tess Leyva MD Consult Narrative Narrative: Darian Quinones is a 75 year old male SP hip replacement. Had some hematuria within last month and with redd placement at surgery. He has appointment pending in office. Redd removed yesterday and he could not void. DC redd this am. Urine was clear in redd. On Eliquis. Does not report significant voiding symptoms. Elevated PSA in past and had biopsy. Takes no medicine for prostate or voiding. Review of Systems Genitourinary: Genitourinary: Reports as per HPI, Reports hematuria, Denies genital pain, Denies dysuria, Denies flank pain, Denies nocturia, Denies testicular pain and Denies urinary hesitancy PMFSH Past Medical History Medical History (Updated 08/08/20 @ 13:28 by Pelon Diaz MD) Altered taste Anxiety Broken hip left hip August 2019 Chronic neck pain Essential (primary) hypertension GERD without esophagitis Hyperlipidemia, unspecified Major depressive disorder, recurrent episode, unspecified Migraine Primary osteoarthritis of both hands Surgical History Surgical History (Updated 08/07/20 @ 14:48 by Rafia Hernández NP) History of repair of left hip joint 09/2018 History of right hip replacement 11/2000 History of total left hip arthroplasty 08/07/2020 [place] teeth extracted Family History Family History Unknown Adopted Social History Social History (Updated 08/07/20 @ 14:52 by Rafia Hernández NP) Social History: The patient is and his is the durable power patent attorney for healthcare. The patient is listed as a full code. The patient has a son and daughter. He is retired from [employer]. The patient is a nonsmoker. Occasionally drinks wine. Does not use any marijuana or illicit drugs. Smoking status: Never smoker Second hand tobacco smoke exposure: No Alcohol intake: current Drinks per week: 1 Substance use: never Substance use type: does not use Living arrangements: with family Gender identity (if verbalized by the patient): Male Spiritual care concerns: No Meds Home Medications and Allergies Home Medications Medication Instructions Recorded Confirmed Type Calcium Magnesium 1 tablet PO DAILY 05/25/20 08/07/20 History lamotrigine 50 mg PO HS 05/25/20 08/07/20 History multivitamin,[id number]-nhttwvtz 1 tablet PO DAILY 05/25/20 08/07/20 History venlafaxine 150 mg PO BID 05/25/20 08/07/20 History ezetimibe [Zetia] 10 mg PO DAILY 06/01/20 08/07/20 History amlodipine 10 mg PO QAM 07/23/20 08/07/20 History atorvastatin 40 mg PO DAILY 08/07/20 08/07/20 History acetaminophen 1,000 mg PO Q6HR #100 tablet 08/08/20 Rx apixaban [Eliquis] 2.5 mg PO Q12HR #68 tablet 08/08/20 Rx celecoxib [Celebrex] 200 mg PO QAM #9 cap 08/08/20 Rx cephalexin 500 mg PO Q6HR #48 cap 08/08/20 Rx famotidine 20 mg PO DAILY #10 tablet 08/08/20 Rx oxycodone 5 mg PO Q4H PRN #50 tablet 08/08/20 Rx polyethylene glycol 3350 [Miralax] 17 g PO QAM #30 ea 08/08/20 Rx sennosides-docusate sodium 2 tab-cap PO BID #100 tablet 08/08/20 Rx [Senokot-S] Allergies Allergy/AdvReac Type Severity Reaction Status Date / Time bacitracin Allergy Severe BLISTERS Verified 08/07/20 13:44 neomycin Allergy Severe BLIS
--- NOTE | 2020-08-08 14:11 | PM.IMPN ---
Progress Note: A&P Assessment and Plan (1) Urinary retention: Code(s): R33.9 - Retention of urine, unspecified Status: Acute Assessment and Plan: Hickman catheter was inserted after bladder scanner she demonstrated 900 mL of retained urine in the bladder. Initially straight catheterization without any urine returned, then the catheter was irrigated in 3 small clots were passed. Urology was consulted by the primary service; appreciate input. Voiding trial today and follow-up with urology. Started on tamsulosin. (2) History of total left hip arthroplasty: Code(s): Z96.642 - Presence of left artificial hip joint Status: Acute Assessment and Plan: POD#1 s/p left total hip arthroplasty by anterior approach left femoral head avascular necrosis by Dr. Viveros 08/07/20. Management including wound care, pain control, DVT prophylaxis per the primary service. (3) Hyperlipidemia, unspecified: Qualifiers: Hyperlipidemia type: unspecified Qualified Code(s): E78.5 - Hyperlipidemia, unspecified Code(s): E78.5 - Hyperlipidemia, unspecified Status: Chronic Assessment and Plan: Continue with home statin therapy and ezetimibe. (4) Essential (primary) hypertension: Code(s): I10 - Essential (primary) hypertension Status: Chronic Assessment and Plan: Blood pressures reviewed; stable maintained on his home amlodipine. (5) Major depressive disorder, recurrent episode, unspecified: Qualifiers: Major depression episode severity: unspecified Qualified Code(s): F33.9 - Major depressive disorder, recurrent, unspecified Code(s): F33.9 - Major depressive disorder, recurrent, unspecified Status: Chronic Assessment and Plan: Stable. Maintained on his home medications. (6) Anxiety: Code(s): F41.9 - Anxiety disorder, unspecified Status: Chronic Assessment and Plan: Stable. Maintained on his home medications. Additional Plan Thank you for allowing me to participate in this pleasant gentleman's care. He is medically stable for discharge from hospitalist standpoint pending voiding trial and urology recommendations. Subjective Date/time seen: 08/08/20 1345 Interval history: Mr. Quinones is a very pleasant 75yo M seen in follow up POD#1 s/p left total hip arthroplasty for treatment of left femoral head avascular necrosis. He tolerated the procedure well and is ambulating well. Urology was consulted for some urinary retention and hematuria. He denies any dysuria. Denies chest pain, palpitations, shortness of breath, nausea or vomiting. He is in good spirits; may go home if passes voiding trial. Review of Systems Review of Systems: All systems reviewed & are unremarkable except as noted in HPI and below Exam Narrative: Exam Narrative: General: Male resting comfortably sitting up in bedside chair in no acute distress. HEENT: Normocephalic, EOMI, oral mucosa moist. Cardiovascular: Rate and rhythm are regular. Respiratory: Lungs clear to auscultation bilaterally. Respirations even and non-labored. Tolerating room air. Abdomen: Soft, non-tender, non-distended, bowel sounds present. Extremities: Left lower extremity is neurovascularly intact distal to the surgical site. Dressing to left anterior hip is clean, dry, intact. No edema or pain to palpation. Neuro: Awake and alert, answers questions appropriately. No focal neurological deficits. Speech is clear. Objective Data Vital Signs Vital Signs: Last Vital Signs Temp 98.6 F 08/08/20 14:29 Pulse 64 08/08/20 14:29 Resp 12 08/08/20 14:29 BP 104/60 08/08/20 14:29 Pulse Ox 100 08/08/20 14:29
[2020-08-08 14:29] VITALS: BP 104/60; PULSE 64; RESP 12; TEMP 37; O2SAT 100
[2020-08-08] MEDS: TAMSULOSIN HCL 0.4 MG CAPSULE PO (16:03)
[2020-08-08] MEDS: SENNA/DOCUSATE SODIUM TABLET 2 TAB PO (17:25)
== END 2020-08-08 19:00 | disposition home or self-care (01) ==
LOC: ANHSURGERY 06:06 → ANH2MED 13:43
PROVIDERS: Physician Assistant Surgical; PCP Family Medicine; Visit Provider Orthopaedic Surgery
PROC: (CPT 27130; principal; 2020-08-07 07:30)
DX: M87.252 Osteonecrosis due to previous trauma, left femur (principal); K21.9 Gastro-esophageal reflux disease without esophagitis; E78.5 Hyperlipidemia, unspecified; M19.042 Primary osteoarthritis, left hand; M19.041 Primary osteoarthritis, right hand; R33.9 Retention of urine, unspecified; R31.0 Gross hematuria; I10 Essential (primary) hypertension
CPT/HCPCS: 27130; 36415; 73501; 80048; 85014; 85018; 85025; 86850; 86900; 86901; 88307; 88311; 97110; 97116; 97161; 97165; A9270; C1776; J0171; J0690; J1100; J1170; J2250; J2370; J2405; J2704; J2710; J2795; J3010; J3370; J7120

== ENCOUNTER 2020-08-25 13:36 | Outpatient (CLI) | payer MEDICARE, OTHER, SELFPAY ==
--- NOTE | ~2020-08-25 | CT_ITS ---
EXAMINATION: CT abdomen pelvis wo/w con DATE: 08/25/2020 14:23 INDICATION: Gross hematuria. TECHNIQUE: Computed tomography (CT) of the abdomen and pelvis was performed without and with intraven ous contrast using a total of 130 mL Omnipaque-350 intravenous contrast with a double-bolus technique for simultaneous opacification of the renal parenchyma and renal collecting system. Automated exposu re control and iterative reconstruction technique were employed. The dose-length product was 2075.34 mGy-cm. COMPARISON: CT abdomen 04/19/2004 FINDINGS: The visualized portions of the lung bases demonstrate mild atelectasis. No pleural effusion. There is a small sliding hiatal hernia. The heart size is normal. There are coronary artery calcifications. N o pericardial effusion. There is a 7 mm cyst in the liver. The gallbladder, spleen, pancreas, and adr enal glands are normal. 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 There are greater than 10 stones in right kidney measuring up to 4 mm. There is a small area of focal atrophy of right kidne y. There are cysts in left kidney measuring up to 2.1 cm. There is a 6 mm stone in left kidney. The u reters are well opacified and are normal. The prostate is severely enlarged. The bladder is not well distended. There is artifact from the bilateral hip arthroplasties. There are no pathologically enlar ged lymph nodes. There is no free intraperitoneal fluid. There is a left inguinal hernia containing f at. There is severe lumbar spondylosis. IMPRESSION: 1. Bilateral nonobstructing kidney stones. 2. Severely enlarged prostate. Reviewed, dictated and finalized at location A.
--- NOTE | ~2020-08-25 | XR_ITS ---
EXAMINATION: XR abdomen/kub 1V DATE: 08/25/2020 13:58 INDICATION: Gross hematuria. TECHNIQUE: A supine view of the abdomen on 2 radiographs was obtained. COMPARISON: CT abdomen and pelvis 08/25/2020 FINDINGS: There are no dilated loops of bowel. There are multiple stones in right kidney measuring up to 4 mm. There are 2 mm and 6 mm stones in left kidney. There is a bipolar right hip hemiarthroplast y. There is a total left hip arthroplasty. IMPRESSION: 1. Bilateral kidney stones. Reviewed, dictated and finalized at location A. IMPRESSION: 1. Bilateral kidney stones.
== END 2020-08-25 13:37 | disposition home or self-care (01) ==
LOC: ANHIMG 13:38
PROVIDERS: PCP Family Medicine; Visit Provider Nurse Practitioner Adult Health
DX: R31.0 Gross hematuria (principal); N20.0 Calculus of kidney; N40.0 Benign prostatic hyperplasia without lower urinary tract symptoms
CPT/HCPCS: 74018; 74178; Q9967

== ENCOUNTER 2021-10-18 14:34 | Outpatient (CLI) | payer MEDICARE, OTHER, SELFPAY ==
[2021-10-18 19:08] LABS: Alanine Aminotransferase 32 U/L (6-50); Albumin Level 4.5 g/dL (3.5-5.1); Alkaline Phosphatase 69 U/L (38-126); Anion Gap 12 mmol/L (8-16); Bilirubin,Total 0.2 mg/dL (0.2-1.3); Blood Urea Nitrogen 19 mg/dL (9-20); Calcium 9.5 mg/dL (8.4-10.2); Carbon Dioxide 27 mmol/L (22-30); Chloride 102 mmol/L (98-107); Estimated Glomerular Filt Rate 59; Glucose 99 mg/dL (65-110); Potassium 4.1 mmol/L (3.4-5.0); Sodium 141 mmol/L (137-145)
[2021-10-18 20:51] LABS: Vitamin D 25 Hydroxy 62.2 ng/mL
[2021-10-21 14:10] LABS: Aspartate Amino Transferase 39 U/L (17-59)
== END 2021-10-18 14:35 | disposition home or self-care (01) ==
LOC: ANHGOSHLAB 14:37
PROVIDERS: PCP Family Medicine; Visit Provider Family Medicine
DX: E55.9 Vitamin D deficiency, unspecified (principal); I10 Essential (primary) hypertension
CPT/HCPCS: 36415; 80053; 82306

== ENCOUNTER 2021-11-30 09:00 | Outpatient (CLI) | payer MEDICARE, OTHER, SELFPAY ==
--- NOTE | ~2021-11-30 | NM_ITS ---
EXAMINATION: NM stress w perf spect multi DATE: 11/30/2021 11:52 INDICATION: Dyspnea on exertion. TECHNIQUE: Rest images were obtained following intravenous administration of 9.7 mCi Tc99m tetrofosmi n (Myoview). The patient performed an exercise activity. At peak exercise, 30.11 mCi Tc99m tetrofosmi n (Myoview) was administered intravenously, and stress images were obtained. Data was reconstructed i nto short axis and horizontal and vertical long axis SPECT images. Gated SPECT images were also obtai carter. COMPARISON: None. FINDINGS: There is no definite reversible or fixed perfusion abnormality to suggest ischemia or infar ction. There is no segmental wall motion abnormality. Left ventricular ejection fraction measures > 70%. IMPRESSION: 1. No definite ischemia or infarct. 2. Normal left ventricular ejection fraction measuring >70%. Reviewed, dictated and finalized at location A.
--- NOTE | 2021-11-30 09:10 | EST_ITS ---
Patient Info Name: Darian Lang Age: 76 years : 1945 Gender: Male Ht: 72 in Wt: 184 lbs BSA: 2.07 m2 Exam Date: 11/30/2021 10:18 AM Exam Location: [facility] Stress Patient Status: Outpatient Admit Date: 11/30/2021 Staff Ordering Physician: Mario Leyva MD Attending Provider: Mario Leyva MD Exercise Technologist: Annette Estevez RDCS Nurse: JOSE LANG NP Exam Type: CA stress test treadmill w NM Study Info Indications R06.00 - Dyspnea, unspecified A nuclear stress test was performed. Summary 1. Abnormal rise in blood pressure during or after stress. 2. No abnormal ST-T wave changes with exercise. 3. Below average exercise capacity. Protocol: Todd Stress ECG Details Stage: REST Duration (min): 1 min : 1 sec Speed (mph): 0.0 Grade (%): 0 HR (bpm): 77 SBP (mmHg): 155 DBP (mmHg): 99 METS: --- Stage: REST Duration (min): 6 min : 55 sec Speed (mph): 0.0 Grade (%): 0 HR (bpm): 96 SBP (mmHg): 155 DBP (mmHg): 99 METS: --- Stage: STAGE 1 Duration (min): 1 min : 0 sec Speed (mph): 1.7 Grade (%): 10 HR (bpm): 108 SBP (mmHg): 155 DBP (mmHg): 99 METS: --- Stage: STAGE 1 Duration (min): 2 min : 0 sec Speed (mph): 1.7 Grade (%): 10 HR (bpm): 135 SBP (mmHg): 155 DBP (mmHg): 99 METS: --- Stage: STAGE 1 Duration (min): 3 min : 0 sec Speed (mph): 1.7 Grade (%): 10 HR (bpm): 141 SBP (mmHg): 180 DBP (mmHg): 99 METS: --- Stage: RECOVERY Duration (min): 0 min : 59 sec Speed (mph): 0.0 Grade (%): 0 HR (bpm): 124 SBP (mmHg): 180 DBP (mmHg): 99 METS: --- Stage: RECOVERY Duration (min): 1 min : 59 sec Speed (mph): 0.0 Grade (%): 0 HR (bpm): 106 SBP (mmHg): 180 DBP (mmHg): 99 METS: --- Stage: RECOVERY Duration (min): 2 min : 59 sec Speed (mph): 0.0 Grade (%): 0 HR (bpm): 98 SBP (mmHg): 180 DBP (mmHg): 99 METS: --- Stage: RECOVERY Duration (min): 3 min : 59 sec Speed (mph): 0.0 Grade (%): 0 HR (bpm): 96 SBP (mmHg): 231 DBP (mmHg): 98 METS: --- Stage: RECOVERY Duration (min): 4 min : 59 sec Speed (mph): 0.0 Grade (%): 0 HR (bpm): 93 SBP (mmHg): 224 DBP (mmHg): 97 METS: --- Stage: RECOVERY Duration (min): 5 min : 59 sec Speed (mph): 0.0 Grade (%): 0 HR (bpm): 96 SBP (mmHg): 224 DBP (mmHg): 97 METS: --- Stage: RECOVERY Duration (min): 6 min : 59 sec Speed (mph): 0.0 Grade (%): 0 HR (bpm): 89 SBP (mmHg): 186 DBP (mmHg): 95 METS: --- Stage: RECOVERY Duration (min): 7 min : 59 sec Speed (mph): 0.0 Grade (%): 0 HR (bpm): 89 SBP (mmHg): 186 DBP (mmHg): 95 METS: --- Stage: RECOVERY Duration (min): 8 min : 11 sec Speed (
== END 2021-11-30 09:01 | disposition home or self-care (01) ==
PROVIDERS: PCP Family Medicine; Visit Provider Family Medicine
DX: R06.09 Other forms of dyspnea (principal)
CPT/HCPCS: 78452; 93017; A9502

== ENCOUNTER 2022-05-11 13:44 | Outpatient (CLI) | payer MEDICARE, OTHER, SELFPAY ==
[2022-05-11 17:38] LABS: Alanine Aminotransferase 39 U/L (6-50); Albumin Level 4.2 g/dL (3.5-5.1); Alkaline Phosphatase 68 U/L (38-126); Anion Gap 4 mmol/L (8-16); Aspartate Amino Transferase 53 U/L (17-59); Bilirubin,Total 0.4 mg/dL (0.2-1.3); Blood Urea Nitrogen 16 mg/dL (9-20); Calcium 8.9 mg/dL (8.4-10.2); Carbon Dioxide 33 mmol/L (22-30); Chloride 100 mmol/L (98-107); Estimated Glomerular Filt Rate > 60; Glucose 79 mg/dL (65-110); Potassium 3.7 mmol/L (3.4-5.0); Sodium 137 mmol/L (137-145)
== END 2022-05-11 13:45 | disposition home or self-care (01) ==
LOC: ANHGOSHLAB 13:46
PROVIDERS: PCP Family Medicine; Visit Provider Family Medicine
DX: E78.5 Hyperlipidemia, unspecified (principal); I10 Essential (primary) hypertension; Z79.899 Other long term (current) drug therapy
CPT/HCPCS: 36415; 80053

== ENCOUNTER 2022-11-18 09:22 | Outpatient (CLI) | payer MEDICARE, OTHER, SELFPAY ==
[2022-11-18 10:13] LABS: Basophils Percent Auto 0.7 % (0.2-1.2); Eosinophils Absolute Auto 0.2 K/mm3 (0-0.3); Eosinophils Percent Auto 3.8 % (0-4.4); Hematocrit 45.3 % (42.0-52.0); Immature Granulocyte Absolute 0.02 K/mm3 (0.00-0.031); Immature Granulocyte Percent A 0.3 % (0-0.5); Lymphocytes Percent Auto 21.7 % (18.3-44.2); Mean Corpuscular HGB Conc 33.1 g/dl (32-36); Mean Corpuscular Hemoglobin 31.3 pg (26-34); Mean Corpuscular Volume 94.6 fl (80-100); Monocytes Absolute Auto 0.6 K/mm3 (0.1-0.6); Monocytes Percent Auto 10.7 % (2.6-8.5); Neutrophils Absolute Auto 3.8 K/mm3 (1.3-6.7); Neutrophils Percent Auto 62.8 % (45.5-73.1); Platelet Count Result 256 k/mm3 (150-375); Red Blood Count 4.79 M/mm3 (4.6-6.20); Red Cell Distribution Width 12.3 % (11.5-14.5)
[2022-11-18 10:21] LABS: Alanine Aminotransferase 44 U/L (6-50); Albumin Level 4.3 g/dL (3.5-5.1); Alkaline Phosphatase 65 U/L (38-126); Anion Gap 4 mmol/L (8-16); Aspartate Amino Transferase 61 U/L (17-59); Bilirubin,Total 0.5 mg/dL (0.2-1.3); Blood Urea Nitrogen 18 mg/dL (9-20); Calcium 8.7 mg/dL (8.4-10.2); Carbon Dioxide 31 mmol/L (22-30); Chloride 103 mmol/L (98-107); Cholesterol 189 mg/dL (0-200); Estimated Glomerular Filt Rate > 60; Glucose 94 mg/dL (65-110); HDL Direct 60 mg/dL; Potassium 3.8 mmol/L (3.4-5.0); Sodium 138 mmol/L (137-145); Triglycerides 144 mg/dL (<150)
[2022-11-18 10:32] LABS: LDL Cholesterol Direct 92 mg/dL
[2022-11-18 10:50] LABS: Hemoglobin A1C 5.3 % (<5.7)
[2022-11-18 11:30] LABS: Folic Acid > 20.0 ng/mL (2.76->20)
[2022-11-18 19:54] LABS: Vitamin D 25 Hydroxy 50.2 ng/mL
[2022-11-22 15:43] LABS: Insulin Level Total 10.7 uIU/mL (<=19.6)
== END 2022-11-18 09:23 | disposition home or self-care (01) ==
PROVIDERS: PCP Family Medicine; Visit Provider Psychiatry & Neurology Psychiatry
DX: E78.5 Hyperlipidemia, unspecified (principal); E53.8 Deficiency of other specified B group vitamins; E55.9 Vitamin D deficiency, unspecified; E03.9 Hypothyroidism, unspecified; Z68.27 Body mass index [BMI] 27.0-27.9, adult
CPT/HCPCS: 36415; 80053; 80061; 82306; 82607; 82746; 83036; 83525; 84443; 85025

== ENCOUNTER 2023-01-09 08:46 | Outpatient (CLI) | payer MEDICARE, OTHER, SELFPAY ==
[2023-01-09 20:49] LABS: Alanine Aminotransferase 34 U/L (6-50); Alkaline Phosphatase 80 U/L (38-126); Anion Gap 8 mmol/L (8-16); Aspartate Amino Transferase 47 U/L (17-59); Bilirubin,Total 0.5 mg/dL (0.2-1.3); Blood Urea Nitrogen 16 mg/dL (9-20); Calcium 8.9 mg/dL (8.4-10.2); Carbon Dioxide 26 mmol/L (22-30); Chloride 103 mmol/L (98-107); Estimated Glomerular Filt Rate > 60; Glucose 88 mg/dL (65-110); Potassium 3.9 mmol/L (3.4-5.0); Sodium 137 mmol/L (137-145)
[2023-01-09 23:46] LABS: Cholesterol 186 mg/dL (0-200); HDL Direct 46 mg/dL; Triglycerides 134 mg/dL (<150)
[2023-01-09 23:57] LABS: LDL Cholesterol Direct 106 mg/dL
== END 2023-01-09 08:47 | disposition home or self-care (01) ==
PROVIDERS: PCP Family Medicine; Visit Provider Family Medicine
DX: E78.5 Hyperlipidemia, unspecified (principal); I10 Essential (primary) hypertension; R74.01 Elevation of levels of liver transaminase levels
CPT/HCPCS: 36415; 80053; 80061

== ENCOUNTER → 2023-01-30 11:09 | Outpatient (CLI) | payer MEDICARE, OTHER, SELFPAY ==
--- NOTE | ~2023-01-30 | CT_ITS ---
EXAMINATION: CT sinus wo con DATE: 01/30/2023 11:20 INDICATION: Chronic ethmoid sinusitis. TECHNIQUE: Computed tomography (CT) of the paranasal sinuses was performed without intravenous contra st. The dose-length product was 419.24 mGy-cm. Automated exposure control and iterative reconstructio n technique were employed. COMPARISON: None FINDINGS: No significant mucosal thickening. No air-fluid levels. No mucoperiosteal reaction. Ostiome atal units are patent. Rightward nasal septal deviation. IMPRESSION: 1. No significant sinus disease. Reviewed, dictated and finalized at location B. NG CARPENTER
== END ==
PROVIDERS: PCP Family Medicine; Visit Provider Otolaryngology
DX: J32.2 Chronic ethmoidal sinusitis (principal); J32.0 Chronic maxillary sinusitis
CPT/HCPCS: 70486

== ENCOUNTER 2023-06-20 09:29 | Outpatient (CLI) | payer MEDICARE, OTHER, SELFPAY ==
--- NOTE | ~2023-06-20 | XR_ITS ---
Right foot Technique: AP and lateral views were obtained. Clinical History: Pain Findings: No acute fracture or dislocation is seen. Osseous alignment is anatomic. Joint spaces are p reserved without erosive or degenerative change. Soft tissues are unremarkable. Impression: Unremarkable right foot radiographs. Reviewed, dictated and finalized at [facility]. Impression: Unremarkable right foot radiographs.
--- NOTE | ~2023-06-20 | XR_ITS ---
Lumbosacral Spine: AP and lateral views Clinical History: Pain Findings: The normal lordotic curve is maintained. No fracture or subluxation seen. There is advanced degenerative disc narrowing L5-S1. There is advanced facet arthropathy throughout the lumbar spine. The sacroiliac joints are normally outlined. Impression: Advanced facet arthropathy throughout the lumbar spine. Advanced degenerative disc narrowing at L5-S1. Reviewed, dictated and finalized at location . Impression: Advanced facet arthropathy throughout the lumbar spine. Advanced degenerative disc narrowing at L5-S1.
== END 2023-06-20 09:30 ==
PROVIDERS: PCP Family Medicine; Visit Provider Nurse Practitioner Family
DX: M79.676 Pain in unspecified toe(s) (principal); M54.9 Dorsalgia, unspecified
CPT/HCPCS: 72100; 73620

== ENCOUNTER 2023-06-21 09:35 | Outpatient (CLI) | payer MEDICARE, OTHER, SELFPAY ==
[2023-06-21 12:16] LABS: Basophils Percent Auto 0.8 % (0.2-1.2); Eosinophils Absolute Auto 0.4 K/mm3 (0-0.3); Eosinophils Percent Auto 7.4 % (0-4.4); Hematocrit 44.6 % (42.0-52.0); Hemoglobin 14.6 g/dL (14.0-18.0); Immature Granulocyte Absolute 0.01 K/mm3 (0.00-0.031); Immature Granulocyte Percent A 0.2 % (0-0.5); Lymphocytes Absolute Auto 1.15 K/mm3 (0.9-3.2); Lymphocytes Percent Auto 21.7 % (18.3-44.2); Mean Corpuscular HGB Conc 32.7 g/dl (32-36); Mean Corpuscular Hemoglobin 30.4 pg (26-34); Mean Corpuscular Volume 92.7 fl (80-100); Mean Platelet Volume 9.8 fl (7.4-10.4); Monocytes Absolute Auto 0.5 K/mm3 (0.1-0.6); Monocytes Percent Auto 9.1 % (2.6-8.5); Neutrophils Absolute Auto 3.2 K/mm3 (1.3-6.7); Neutrophils Percent Auto 60.8 % (45.5-73.1); Platelet Count Result 256 k/mm3 (150-375); Red Blood Count 4.81 M/mm3 (4.6-6.20); Red Cell Distribution Width 12.9 % (11.5-14.5); White Blood Count 5.3 K/mm3 (4.5-10.0)
[2023-06-21 12:32] LABS: Alanine Aminotransferase 43 U/L (6-50); Albumin Level 4.5 g/dL (3.5-5.1); Alkaline Phosphatase 61 U/L (38-126); Anion Gap 8 mmol/L (4-12); Aspartate Amino Transferase 59 U/L (17-59); Bilirubin,Total 0.6 mg/dL (0.2-1.3); Blood Urea Nitrogen 21 mg/dL (9-20); Calcium 9.6 mg/dL (8.4-10.2); Carbon Dioxide 25 mmol/L (22-30); Chloride 107 mmol/L (98-107); Cholesterol 182 mg/dL (0-200); Estimated Glomerular Filt Rate 59; Glucose 95 mg/dL (65-110); HDL Direct 68 mg/dL; Potassium 3.4 mmol/L (3.4-5.0); Sodium 140 mmol/L (137-145); Triglycerides 97 mg/dL (<150); Uric Acid 9.5 mg/dL (3.5-8.5)
[2023-06-21 12:43] LABS: LDL Cholesterol Direct 94 mg/dL
[2023-06-24 13:12] LABS: Vitamin D 1,25 (OH)2 Total 33 pg/mL (18-72); Vitamin D2 1,25 (OH)2 <8 pg/mL; Vitamin D3 1,25 (OH)2 33 pg/mL
== END 2023-06-21 09:36 | disposition home or self-care (01) ==
PROVIDERS: PCP Family Medicine; Visit Provider Nurse Practitioner Family
DX: E55.9 Vitamin D deficiency, unspecified (principal); I10 Essential (primary) hypertension; M10.9 Gout, unspecified; E53.8 Deficiency of other specified B group vitamins
CPT/HCPCS: 36415; 80053; 80061; 82607; 82652; 84443; 84550; 85025

== ENCOUNTER 2023-09-06 10:30 | Outpatient (RCR) | payer MEDICARE, OTHER, SELFPAY ==
--- NOTE | 2023-07-17 13:19 | OPREHPOC ---
Outpatient Therapy Plan of Care This is a Multidisciplinary Plan of Care that may contain components documented by all disciplines (PT, OT, and ST.) PT Problem 1 PT Problem #1 Knowledge Deficit PT Goal 1 Goal 1. Patient will perform independent HEP Target Visit 4 PT Problem 2 PT Problem #2 Pain PT Goal 1 Goal 1. Patient able to do all activities with pain no higher than 3/10 Target Visit 10 PT Problem 3 PT Problem #3 Impaired Strength PT Goal 1 Goal 1. LE MMT to 5/5 and pain free in all planes Target Visit 10 PT Problem 4 PT Problem #4 Impaired Gait PT Goal 1 Goal 1. No observable gait deviations on the 2 minute walk test Target Visit 10 PT Problem 5 PT Problem #5 Impaired Functional ADLs PT Goal 1 Goal 1. Patient able to do yardwork and car transfers without limitation Target Visit 10
--- NOTE | 2023-07-17 13:19 | PTOPEVAL1 ---
Assessment and note entered by Yessi Cotton DPT Evaluation Information Assessment Status Evaluation Subjective Information Pt reports he has had 2 broken legs/hip replacements and his left leg is longer than his right. Is noticing back pain that starts after walking. Was previously able to walk 2 miles but now is able to go less and less and has ended up falling because his back seizes up . Also feels like his left leg drags. Difficulty bending over like to do yard work and pain with car transfers. Highest pain 5-6/10 and lowest 0/10. Denies n/t. Thinks his pain started 2 years ago but is worsening. Patient goal: strengthen leg, walk without pain in my back Return to MD is not scheduled. No pacemaker. Reported Pain Level Pain Score 0: Self Report Assessment PT Clinical Summary The patient is presenting to skilled therapy with L sided back pain. He presents with decreased LE strength L>R, tenderness to palpation, and gait impairments which are contributing to his pain and difficulty walking at his normal level and performing tasks like yard work. He will highly benefit from therapy to address these impairments in order to reduce pain and return to prior level of function. Plan of Care Interventions Electrical Stimulation,Gait Training,Hot Pack/Cold Pack,Manual Therapy,Neuro Re-education,Patient/ Caregiver Education,Therapeutic Activities, Therapeutic Exercise PT Services Indicated Yes Treatment Frequency and 2 times a week for 10 visits Duration These treatments will address the objective and functional deficits as defined above. The patient will be advanced safely and appropriately in order for the patient to progress towards his/her prior level of function. Additional exercises will be introduced and as well as a comprehensive home exercise program upon discharge, if needed, ?to ensure carryover of functional gains achieved in the clinic. This treatment plan has been reviewed and agreement upon by the patient.
--- NOTE | 2023-08-10 12:20 | PCPTNOTE ---
Patient called to cancel stating he could not make it this date.
--- NOTE | 2023-09-06 11:05 | OPREHPOC ---
Outpatient Therapy Plan of Care This is a Multidisciplinary Plan of Care that may contain components documented by all disciplines (PT, OT, and ST.) PT Problem 1 PT Problem #1 Knowledge Deficit PT Goal 1 Goal 1. Patient will perform independent HEP Target Visit 4 Progress Met PT Problem 2 PT Problem #2 Pain PT Goal 1 Goal 1. Patient able to do all activities with pain no higher than 3/10 Target Visit 10 Progress Met PT Problem 3 PT Problem #3 Impaired Strength PT Goal 1 Goal 1. LE MMT to 5/5 and pain free in all planes Target Visit 10 Progress Partially Met Comment pain free, 4+/5 or 5/5 in all planes PT Problem 4 PT Problem #4 Impaired Gait PT Goal 1 Goal 1. No observable gait deviations on the 2 minute walk test Target Visit 10 Progress Partially Met PT Problem 5 PT Problem #5 Impaired Functional ADLs PT Goal 1 Goal 1. Patient able to do yardwork and car transfers without limitation Target Visit 10 Progress Met
--- NOTE | 2023-09-06 11:05 | PTOPDC ---
Assessment and note entered by Yessi Cotton DPT Evaluation Information Assessment Status Discharge Subjective Information Pt reports he is feeling good with therapy and is able to walk more upright, also notices more leg strength. Still has some pain with prolonged walking or standing. Highest back pain in last week 2/10 and lowest 0/10. Pain is not preventing any activities at this point. No return to MD scheduled currently. Reported Pain Level Pain Score 0: Self Report Assessment PT Clinical Summary The patient has made excellent progress in therapy . He reports greatly decreased pain overall to 2/ 10 highest, is able to walk more upright, and feels his legs are stronger. He demonstrates improved LE strength, gait pattern, and no tenderness to palpation. Due to his progress and independence with HEP, plan for discharge at this time. He has been educated in a thorough HEP and to follow up with MD and/or PT as needed. Plan of Care PT Services Indicated No
== END 2023-09-06 14:30 | disposition home or self-care (01) ==
LOC: ANHGOSHPT 10:30
PROVIDERS: PCP Family Medicine; Visit Provider Nurse Practitioner Family
DX: M54.9 Dorsalgia, unspecified (principal)
CPT/HCPCS: 97014; 97110; 97112; 97140; 97161; 97530; G0283

== ENCOUNTER 2024-03-12 14:10 | Emergency (ER) | payer MEDICARE, OTHER, SELFPAY ==
--- NOTE | ~2024-03-12 | XR_ITS ---
EXAMINATION: XR chest 2V DATE: 03/12/2024 14:42 INDICATION: Cough. TECHNIQUE: Frontal and lateral views of the chest were obtained. COMPARISON: Chest 2 views 07/18/2018 FINDINGS: There is mild scarring at the lung apices. A calcified right lung nodule is consistent with old granulomatous disease. No pleural effusion or pneumothorax. The heart size is normal. IMPRESSION: 1. Mild scarring at the lung apices. Reviewed, dictated and finalized at location A. S SOLUTIONS REPRESENTATIVE
[2024-03-12 14:19] VITALS: BP 126/70; PULSE 89; RESP 16; TEMP 36.6; O2SAT 100
--- NOTE | 2024-03-12 14:19 | ED.URI ---
HPI - URI/Sore Throat General Chief Complaint: Upper Respiratory Infection Stated Complaint: COUGH/FEVER Time Seen by Provider: 03/12/24 14:28 Source: patient, RN notes reviewed and old records reviewed Mode of arrival: ambulatory Limitations: no limitations History of Present Illness HPI Narrative: 78-year-old male presents to the [facility] with cough and fever since , 5 days. Patient reports fever on , none today. reports that he has been taking a lot of Robitussin. Related Data Home Medications ?Medication ?Instructions ?Recorded ?Confirmed ?Last Taken ?Type tamsulosin 0.4 mg capsule 0.4 mg PO QHS 06/23/21 03/05/24 Unknown History finasteride 5 mg tablet 5 mg PO DAILY 10/18/21 03/05/24 Unknown History alprazolam 1 mg tablet 1 mg PO BID PRN 12/23/21 03/05/24 Unknown History venlafaxine 150 mg tablet,extended 150 mg PO DAILY 06/13/22 03/05/24 Unknown History release 24 hr olopatadine 665 mcg-mometasone 25 2 spray intranasal BID 03/05/24 03/05/24 Unknown History mcg/spray nasal spray (Ryaltris) vilazodone 20 mg tablet 20 mg PO DAILY 03/05/24 03/05/24 Unknown History Allergies Allergy/AdvReac Type Severity Reaction Status Date / Time bacitracin Allergy Severe BLISTERS Verified 03/05/24 13:26 neomycin Allergy Severe BLISTERS Verified 03/05/24 13:26 polymyxin B Allergy Severe BLISTERS Verified 03/05/24 13:26 venom-honey bee Allergy Severe ANAPHALACTI Verified 03/05/24 13:26 C codeine AdvReac Severe Hallucinating Verified 03/05/24 13:26 & ITCHING Review of Systems Review of Systems: All systems reviewed & are unremarkable except as noted in HPI and below Constitutional: Constitutional: Reports as per HPI, Reports body ache(s) and Reports fever(s) ENT: Reports system reviewed and no additional complaints, except as documented Cardiovascular: Cardiovascular: Reports no additional cardiovascular complaints, Denies chest pain and Denies dyspnea Respiratory: Respiratory: Reports as per HPI, Denies chest congestion, Reports cough and Denies dyspnea Musculoskeletal: Musculoskeletal: Reports no additional musculoskeletal complaints Integumentary/Breasts: Skin/Breast: Reports system reviewed and no additional complaints, except as docu PMFSH Past Medical History Medical History Acquired 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 Sleep apnea Vitamin D deficiency Nasal obstruction BPH loc w/o ur obs/LUTS Anxiety Chronic neck pain Major depressive disorder, recurrent episode, unspecified Essential (primary) hypertension GERD without esophagitis Hyperlipidemia, unspecified Migraine Primary osteoarthritis of both hands Broken hip left hip August 2019 Surgical History Surgical History History of total left hip arthroplasty 08/07/2020 History of repair of left hip joint 09/2018 [place] teeth extracted History of right hip replacement 11/2000 Family History Family History Unknown Adopted Social History Social History Social History: The patient is and his is the durable power senior trial attorney for healthcare. The patient is listed as a full code. The patient has a son and daughter. He is retired from [employer]. The patient is a nonsmoker. Occasionally drinks wine. Does not use any marijuana or illicit drugs. Caffeine-coffee Smoking status: Never smoker Second hand tobacco smoke exposure: No Alcohol intake: current Drinks per week: 1 Substance use: never Substance use type: does not use Lack of Transportation: No Lack of Food: Never True Current Housing: I Have Housing Concerned About Future Housing: Decline to Answer Difficulty Paying Gas/Electric Bills: Decline to Answer Difficulty Paying for Meds: Decline to Answer Currently Unemployed: Decline to Answer Education: Decline to Answer Difficulty w/ Childcare or Family Care: Decline to Answer Living arrangements: with family Gender identity (if verbalized by the patient): Male Spiritual care concerns: No Comments At the time of my signature, I reviewed and agree with the nursing past medical, surgical, social, and family history. There is no relevant family history pertinent to the patient complaint. Exam Const: General: cooperative, healthy appearing, comfortable, no acute distress, well developed, alert and well nourished Nutritional Appearance: well nourished Orientation/consciousness: patient oriented x3 Limitations: no limitations HENMT: Head: normal to inspection Ears: hearing grossly normal bilaterally, external ears normal, TM's normal bilaterally, EAC's normal, mastoids normal and no periauricular adenopathy Mouth: Yes Normal oral and palatal mucosa present, Yes lip normal, Yes tongue normal and Yes moist mucous membranes Throat: posterior oropharynx normal, uvula midline, postnasal drainage and no uvular edema Eyes: General: appearance normal, both eyes and all related structures Alignment and Position: alignment normal Neck: Neck: normal visual inspection, full ROM, no lymphadenopathy and no meningeal signs Chest: Chest palpation & inspection: normal inspection of the chest Resp: Effort & Inspection: normal respiratory effort and able to speak in complete sentences Auscultation: crackles bilateral in the lower lung westfall, no rales, no rhonchi and no wheezes Cardio: Rate: regular rate Skin: General skin exam: normal color and no rashes or lesions noted Neuro: General: patient oriented x3, gait normal, moves all extremities and no meningeal signs Cognition (Neuro): normal cognition Speech: normal speech Gait exam (Neuro): Normal gait present Extrem: General: normal to inspection, full ROM, capillary refill normal and normal gait Psych: Appearance: grossly normal and well kempt Mental Status: mental status grossly normal Speech and movement: Normal speech and movement present and Clear speech present Affect: normal affect Attitude: cooperative Course Course Level of Care: Express Care Visit Vital Signs Vital signs: Vital Signs Oxygen Delivery Room Air 03/12/24 14:13 Temperature 97.9 F 03/12/24 14:19 Pulse Rate 89 03/12/24 14:19 Respiratory Rate 16 03/12/24 14:19 Blood Pressure 126/70 03/12/24 14:19 Pulse Oximetry 100 03/12/24 14:19 Oxygen Delivery Room Air 03/12/24 14:13 Reviewed MDM - URI/Sore Throat MDM Narrative Medical decision making narrative: Patient sitting in exam room. Nontoxic, vitals stable. Patient presents with 5 day history of cough. Flu and COVID negative, x-ray did not show signs of pneumonia. discussed [id number] treatments, will prescribe bends an 8 as well as an antibiotic due to patient's age. patient appropriate for outpatient treatment with close follow-up Discharge instructions reviewed with patient, as well as provided in writing per nursing staff. The instructions also include specific and strict return/GO TO THE ER as well as f/u information. All questions have been answered, and the patient deny any further questions with discharge and discharge plan. Some parts of this dictation were generated by voice recognition software and may contain typographical and/or grammatical inaccuracies. Differential Diagnosis Differential diagnosis: Likely upper respiratory infection, otitis media, sinusitis, viral infection, bronchitis and influenza Lab Data Labs: Lab Results 03/12/24 Range/Units 15:17 POC Influenza A Ag Negative (Negative) POC Influenza B Ag Negative (Negative) POC SARS CoV-2 Ag Negative (Negative) Reviewed Imaging Data Radiologist's impression: EXAMINATION: XR chest 2V DATE: 03/12/2024 14:42 INDICATION: Cough. TECHNIQUE: Frontal and lateral views of the chest were obtained. COMPARISON: Chest 2 views 07/18/2018 FINDINGS: There is mild scarring at the lung apices. A calcified right lung nodule is consistent with old granulomatous disease. No pleural effusion or pneumothorax. The heart size is normal. IMPRESSION: 1. Mild scarring at the lung apices. Critical Care Time Critical Care Time Critical Care Time: No Discharge Plan Discharge Clinical Impression: Bronchitis Patient Disposition: Home, Self-Care Condition: Stable Instructions: Antibiotic Form, Acute Bronchitis (ED) Additional Instructions: Your rapid COVID test were negative Your rapid flu test was negative It is very important to treat your symptoms. Drink plenty of water, Gatorade, Pedialyte, ice pops or Jell-O. -Alternate Tylenol and Motrin per package directions for fever or pain. You can alternate every 4 hours -Antihistamine medication such as Zyrtec/Claritin/Araceli during the day can help improve symptoms. -doing daily nasal irrigations can help relieve pressure your sinuses. Things like a Neti pot -Use Flonase twice a day for 5 days then daily to help reduce the inflammation and dry up your sinuses. -You can also use Mucinex. Be sure to drink plenty of water with this medication at least 8 ounces with every dose and it is important to drink 8 to 10 glasses of water per day. Water is a natural decongestant -Eat and drink things that are easy to swallow, like tea or soup, or popsicles. -Oral rinses such as: Salt water gargles and/or may use topical anesthetic (eg. Chloraseptic spray) or lozenges to relieve dryness or throat pain). -Frequent hand washing or hand potato peeling machine operator is one of the best ways to prevent spread of infection. -Using a vaporizer or humidifier at night will also help thin secretions and help with coughing up phlegm. -Follow up with primary care provider in 7-10 days if condition is not improving - For new or worsening symptoms go directly to the nearest ER Patient Language: Beninese Prescriptions: New azithromycin 250 mg tablet See Rx Instructions .ROUTE .COMPLEX Qty: 6 0RF Rx Instructions: For 250 mg dose pack: take 500 mg today (day 1), then 250 mg for 4 days (days 2-5) benzonatate 100 mg capsule 100 mg PO TID PRN (Reason: cough) Qty: 15 0RF No Action tamsulosin 0.4 mg capsule 0.4 mg PO QHS venlafaxine 150 mg tablet extended release 24hr 150 mg PO DAILY vilazodone 20 mg tablet 20 mg PO DAILY Ryaltris 665-25 mcg/spray spray,non-aerosol 2 spray intranasal BID finasteride 5 mg tablet 5 mg PO DAILY alprazolam 1 mg tablet 1 mg PO BID PRN ezetimibe 10 mg tablet 10 mg PO DAILY Qty: 90 3RF atorvastatin 40 mg tablet 40 mg PO QHS Qty: 90 1RF omeprazole 20 mg capsule,delayed release(DR/EC) 20 mg PO DAILY Qty: 90 1RF amlodipine 10 mg tablet 5 mg PO QAM Qty: 90 1RF Follow-up/Referrals: Mario Leyva MD [Primary Care Provider] - 2 Weeks ( [facility] follow-up) Time of Disposition: 15:00
[2024-03-12 15:19] LABS: EDCOVIDSCREEN Negative (Negative); EDINFLUASCREEN Negative (Negative); EDINFLUBSCREEN Negative (Negative)
== END 2024-03-12 15:07 | disposition home or self-care (01) ==
PROVIDERS: Emergency Provider Nurse Practitioner; PCP Family Medicine
DX: J40 Bronchitis, not specified as acute or chronic (principal); Z20.822 Contact with and (suspected) exposure to COVID-19; N40.0 Benign prostatic hyperplasia without lower urinary tract symptoms; I10 Essential (primary) hypertension; E78.5 Hyperlipidemia, unspecified; K21.9 Gastro-esophageal reflux disease without esophagitis; M19.042 Primary osteoarthritis, left hand; M19.041 Primary osteoarthritis, right hand; F41.9 Anxiety disorder, unspecified; F33.9 Major depressive disorder, recurrent, unspecified; Z96.643 Presence of artificial hip joint, bilateral
CPT/HCPCS: 71046; 87426; 87804; 99213; G0463

== ENCOUNTER 2024-03-18 09:19 | Outpatient (CLI) | payer MEDICARE, OTHER, SELFPAY ==
[2024-03-18 13:44] LABS: Basophils Percent Auto 0.5 % (0.2-1.2); Eosinophils Absolute Auto 0.2 K/mm3 (0-0.3); Eosinophils Percent Auto 3.1 % (0-4.4); Hematocrit 44.8 % (42.0-52.0); Hemoglobin 14.4 g/dL (14.0-18.0); Immature Granulocyte Absolute 0.03 K/mm3 (0.00-0.031); Immature Granulocyte Percent A 0.5 % (0-0.5); Lymphocytes Absolute Auto 1.23 K/mm3 (0.9-3.2); Lymphocytes Percent Auto 20.1 % (18.3-44.2); Mean Corpuscular HGB Conc 32.1 g/dl (32-36); Mean Corpuscular Hemoglobin 29.9 pg (26-34); Mean Corpuscular Volume 93.1 fl (80-100); Mean Platelet Volume 9.5 fl (7.4-10.4); Monocytes Absolute Auto 0.5 K/mm3 (0.1-0.6); Monocytes Percent Auto 7.7 % (2.6-8.5); Neutrophils Absolute Auto 4.2 K/mm3 (1.3-6.7); Neutrophils Percent Auto 68.1 % (45.5-73.1); Platelet Count Result 326 k/mm3 (150-375); Red Blood Count 4.81 M/mm3 (4.6-6.20); Red Cell Distribution Width 12.5 % (11.5-14.5); White Blood Count 6.1 K/mm3 (4.5-10.0)
[2024-03-18 14:45] LABS: Calcium 9.6 mg/dL (8.4-10.2)
[2024-03-18 15:06] LABS: LDL Cholesterol Direct 84 mg/dL; Parathyroid Intact 17.4 pg/mL (14.5-75.2)
[2024-03-18 15:19] LABS: Vitamin D 25 Hydroxy 53.1 ng/mL
[2024-03-18 15:20] LABS: Alanine Aminotransferase 55 U/L (6-50); Albumin Level 4.2 g/dL (3.5-5.1); Alkaline Phosphatase 90 U/L (38-126); Anion Gap 9 mmol/L (4-12); Aspartate Amino Transferase 56 U/L (17-59); Bilirubin,Total 0.6 mg/dL (0.2-1.3); Blood Urea Nitrogen 21 mg/dL (9-20); Calcium 9.5 mg/dL (8.4-10.2); Carbon Dioxide 21 mmol/L (22-30); Chloride 108 mmol/L (98-107); Cholesterol 154 mg/dL (0-200); Estimated Glomerular Filt Rate 55; Glucose 73 mg/dL (65-110); HDL Direct 38 mg/dL; Potassium 3.7 mmol/L (3.4-5.0); Sodium 138 mmol/L (137-145); Triglycerides 116 mg/dL (<150)
[2024-03-18 15:36] LABS: Hemoglobin A1C 5.6 % (<5.7)
[2024-03-18 15:37] LABS: Vitamin B12 > 1000.0 pg/mL (239-931)
== END 2024-03-18 09:20 | disposition home or self-care (01) ==
LOC: ANHGOSHLAB 09:21
PROVIDERS: PCP Family Medicine; Visit Provider Family Medicine
DX: E78.5 Hyperlipidemia, unspecified (principal); I10 Essential (primary) hypertension; R73.9 Hyperglycemia, unspecified; F41.9 Anxiety disorder, unspecified; E55.9 Vitamin D deficiency, unspecified; F33.9 Major depressive disorder, recurrent, unspecified; E53.8 Deficiency of other specified B group vitamins; F33.2 Major depressive disorder, recurrent severe without psychotic features
CPT/HCPCS: 36415; 80053; 80061; 82306; 82310; 82607; 83036; 83970; 84443; 85025

== ENCOUNTER 2024-04-24 09:11 | Outpatient (CLI) | payer MEDICARE, OTHER, SELFPAY ==
--- OUTSIDE RECORDS SUMMARY | 2024-04-24 09:17 | XMS_ITS | Encounter Summary ---
Author Organization [facility] Address [address] [facility] [place] [address] Care Team Providers Care Interdisciplinary Professor Name Role Phone Peter Greene MD Primary Care Provider [phone] Encounter Details Date Type Department Care Team (Late st Contact Info) Description 06/26/2017 Lab Requisition [facility] Care DermPath Lab [address] [facility] [facility], [place] [address] Leeroy Lance MD [address] [place] [address] Social History Tobacco Use Types Packs/Day Years Used Date Smoking Tobacco: Never Assessed Sex and Gender Information Value Date Recorded Sex Assigned at Not on file Gender Identity Not on file Sexual Orientation Not on file documented as of this encounter Plan of Treatment Not on file documented as of this encounter Procedures Procedure Name Priority Date/Time Associated Diagnosis Comments DERMATOPATHOLOGY Routine 06/23/2017 12:0 0 AM CDT documented in this encounter Results * DERMATOPATHOLOGY (06/23/2017 12:00 AM CDT) Case Report Dermatopathology Report Case: [id number] Authorizing Provider: Leeroy Lance MD Collected: 06/23/2017 12:00 AM Pathologist: Fannie Marquez MD Received: 06/26/2017 12:10 PM Specimen: Skin, left medial cheek 8 2:26 PM CDT DERMATOPATHOLOGY LABORATORY Final Diagnosis Specimen A. 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 Check margins. 2:26 PM CDT DERMATOPATHOLOGY LABORATORY Gross Description Specimen A: Received is one formalin filled container labeled with the patient's name and designated left medial cheek. The specimen consists of a shave biopsy measuring [id number]. The margin is inked green. Jar 0. 2:26 PM CDT DERMATOPATHOLOGY LABORATORY Microscopic Description Specimen A. SKIN, left medial cheek: Sections show a proliferation of blood vessels in lobules lined by uniform endothelial cells and by fibrous septa. The stroma is edematous and contains a mixed inflammatory cell infiltrate. The overlying epidermis is eroded. This lesion is present at the margin of the specimen. 2:26 PM CDT DERMATOPATHOLOGY LABORATORY Disclaimer An external and internal positive and negative controls are appropriate for the histochemical, immunohistochemical and immunofluorescence stain(s) in this case (if any), except where stated explicitly. The performance characteristics of the stain(s) cited in this report were developed and its performance characteristic determined by the Dermatopathology Laboratory at [facility]. These tests need not be, and therefore are not, approved by the [place] Food and Drug Administration. The tests are used for clinical purposes. Billing Codes Specimen Charges Stain Charges 35948 1 2:26 PM CDT DERMATOPATHOLOGY LABORATORY Embedded Images 2:26 PM CDT DERMATOPATHOLOGY LABORATORY Pathology/Cytolog y TISSUE SPECIMEN FROM SKIN / Unknown 06/23/2017 06/26/2017 12:10 PM CDT Leeroy Lance MD LAB - PATHOLOGY/CYTO LOGY ORDERABLES DERMATOPATHOLOGY LABORATORY [facility] - Department of Dermatology [address] [facility] 5th [place] [address], [facility] [phone] documented in this encounter Visit Diagnoses Not on filedocumented in this encounter Care Teams Interdisciplinary Professor Relationship Specialty Start Date End Date Peter Greene MD [address] [place] [address] PCP - General 09/15/17 documented as of this encounter
--- OUTSIDE RECORDS SUMMARY | 2024-04-24 09:17 | XMS_ITS | Continuity of Care Document ---
Author Organization [facility] Address [address] [place] [address] Phone Care Team Providers Care Support Teacher Name Role Phone [facility] Unavailable Unavail able Veena Rojas Unavailable Unavailable Procedures Procedure Date Vision Svcs Frames Purchases Progressive Lens, Polycarb Tax - Medical Eye Exam & Treatment Refraction Advance Directives Directive Yes / No Effective Date File Name No Information Encounters Encounter Description Practice Location Reason(s) For Visit Diagnoses Date Provider Providers Copied on Encounter [facility], [address] [place] [address] [address], [place], [place], [id number], [place] tel:[phone] [facility] No Information 3-200 9 [facility] . [address] [facility] [address], [place], [id number], [place]. tel:[phone] Referring Provider: Prashanth Gaspar, [address], [place], [address]. tel:[phone] bernard Provider: Veena Rojas, [address] [facility], [place], [address]. tel:[phone] [facility], [address], [place], [place], [id number], [place] tel:[phone] [facility] No Information 5-200 9 Esteban OD Prashanth. [address] , [address], [place], [address], [place]. tel:[phone] Family History Family Member Type Diagnosis Age At Onset No Information Payers Payer name Insurance type Covered constitution party ID Authoriza tion(s) No Information Social History Type Description Quantity Date Captured Comments Sex Male Smoking Status No Information Chief Complaint And Reason For Visit No Information Reason For Referral Reason For Referral No Information History Of Present Illness Encounter Date Complaint History Of Prese nt Illness No Information Functional Status Date Functional Assessmen t No Information Instructions Date Instruction Additional Infor mation No Information Assessments Type Assessment Date No Information Patient Care Teams Name Effective Dates (start - stop) Status Members No Information
--- OUTSIDE RECORDS SUMMARY | 2024-04-24 09:17 | XMS_ITS ---
Author Organization [facility] Address [address] [facility] [address] [place] [address] Care Team Providers Care Starcher And Tenter Range Feeder Name Role Phone Tess Levya MD Primary Care Provider Unavailable Luis Rodriguez Unavailable [phone] Medications Medication SIG (Take, Route, Frequency, Duration) Notes Start Date End Date Status Venlafaxine HCl ER 150 MG 1 capsule with food Orally Once a day for 90 days 05/08/2023 Active Social History Sex Assigned At : Social History Observation Description Sex Assigned At Male Encounters Encounter Location Date Provider Diagnosis [facility] [address] [address] 10/20/2023 Luis Rodriguez Major depressive disorder, recurrent severe without psychotic features F33.2 Assessments Encounter Date Diagnosis (ICD Code) Assessment Notes Treatment Notes Treatment Clinical Notes Section Notes 10/20/2023 Major depressive disorder, recurrent severe without psychotic features (ICD-10 - F33.2) Plan Of Treatment Medication Medication Name Sig Start Date Stop Date Notes Venlafaxine HCl ER 150 MG 1 capsule with food Orally Once a day for 90 days 05/08/2023 Next Appt Details Provider Name:Luis Rodriguez , 06/05/2024 01:00:00 PM, [address], [facility] [address], [place], [address], Progress Notes * NINI LANG DDOB:1945 (78 yo M)Acc No.[id number]:10/20/2023 Patient: NINI COOK :1945 A ge:78 Y S ex:Male [facility], [address] * Refills Refill Venlafaxine HCl ER Capsule Extended Release 24 Hour, 150 MG, Orally, 90 Capsule, 1 capsule with food, Once a day, 90 days, Refills=0 Subjective: * Chief Complaints: * * Medical History: * Surgical History: * Hospitalization/Major Diagno stic Procedure: * Medications: Objective: * Vitals: * Physical Examination: Assessment: * Assessment: 1. M ajor depressive disorder, recurrent severe without psychotic features - F33.2 ? Plan: * Treatment: * Procedure Codes: * true * Date: Generated for Maximus morrissey/Raine/Radhikaitting on: 0 04/24/2024 09:17 AM ASIAN STUDIES PROFESSOR
--- OUTSIDE RECORDS SUMMARY | 2024-04-24 09:17 | XMS_ITS | Clinical Summary ---
Author Organization [facility] Address [address] [place] [address] Care Team Providers Care Dna Analyst Name Role Phone Tess Leyva MD Primary Care Provider Allergies Active Allergy Reactions Criticality Noted Date Comments Oteixquw-Zsgundijfv-Rrkbalhab Hives Medium 2018 Medications amLODIPine (NORVASC) 10 mg tablet amlodipine 10 mg tablet TAKE 1 TABLET BY MOUTH EVERY MORNING Active atorvastatin (LIPITOR) 40 mg tablet atorvastatin 40 mg tablet Active tamsulosin (FLOMAX) 0.4 mg extended release capsule tamsulosin 0.4 mg capsule Active venlafaxine XR (EFFEXOR-XR) 150 mg 24 hr capsule venlafaxine ER 150 mg capsule,extended release 24 hr TAKE 1 CAPSULE BY MOUTH TWICE DAILY Active ezetimibe (ZETIA) 10 mg tablet ezetimibe 10 mg tablet TAKE 1 TABLET BY MOUTH DAILY Active ALPRAZolam (XANAX) 1 mg tablet as needed Active vilazodone (VIIBRYD) 40 mg tablet Viibryd 40 mg tablet TAKE 1 TABLET BY MOUTH EVERY DAY Active finasteride (PROSCAR) 5 mg tablet finasteride 5 mg tablet TAKE 1 TABLET BY MOUTH DAILY Active furosemide (LASIX) 20 mg tabletIndicatio ns:Lower extremity edema Take 1 tablet (20 mg total) by mouth daily as needed (swelling) 30 tablet 1 3 Active azelastine (ASTELIN) 137 mcg (0.1 %) nasal spray Administer 1 spray into each nostril 2 (two) times a day 4 Active Ryaltris 665-25 mcg/spray spray,non-aeros ol SPRAY 2 TIMES INTRANASALLY TWICE A DAY. AIM BACK/UP/OUT Active Active Problems Problem Noted Date Diagnosed Date Essential hypertension 02/04/2022 Lower extremity edema 02/04/2022 Hyperlipidemia LDL goal <100 02/04/2022 VIRY (obstructive sleep apnea) 02/04/2022 Gastroesophageal reflux disease without esophagi tis 02/04/2022 Encounters Date Type Department Care Team Description 02/21/2024 Orders Only [facility] Cardiology [address] [facility] [address] [place] [address] ProviderJose MD 02/09/2024 11:30 AM STRINGS TEACHER Office Visit [facility] Cardiology at [address] [place] [address] Pelon Pruett MD Essential hypertension (Primary Dx); Hyperlipidemia LDL goal <100; Gastroesophageal reflux disease without esophagitis; VIRY (obstructive sleep apnea); Lower extremity edema from Last 3 Months Surgical History Surgery Date Site/Laterality Comments TOTAL HIP ARTHROPLASTY Medical History Medical History Date Comments Hypertension Hyperlipidemia Family History Relation Name Status Comments Father Mother Social History Tobacco Use Types Packs/Day Years Used Date Smoking Tobacco: Never Smokeless Tobacco: Never Tobacco Cessation:Counseling Given: Not Answered AUDIT-C Answer Date Recorded Q1: How often do you have a drink containing alc ohol? Monthly or less 02/04/2022 Q2: How many drinks containi ng alcohol do you have on a typical day when you are drinking? 1 or 2 02/04/2022 Q3: How often do you have si x or more drinks on one occasion? Never 02/04/2022 Sex and Gender Information Value Date Recorded Sex Assigned at Not on file Legal Sex Male 1:39 PM CDT Gender Identity Not on file Sexual Orientation Not on file Obstetrics History Last Filed Vital Signs Vital Sign Reading Time Taken Comments Blood Pressure 138/88 02/09/2024 11:38 AM STRINGS TEACHER Pulse 82 02/09/2024 11:38 AM STRINGS TEACHER Temperature - - Respiratory Rate - - Oxygen Saturation 96% 02/09/2024 11:38 AM STRINGS TEACHER Inhaled Oxygen Concentration - - Weight 92.1 kg (203 lb) 02/09/2024 11:38 AM STRINGS TEACHER Height 182.9 cm (6') 02/09/2024 11:38 AM STRINGS TEACHER Body Mass Index 27.53 02/09/2024 11:38 AM STRINGS TEACHER Plan of Treatment Health Maintenance Due Date Last Done Comments Depression Screening 1945 Fall Risk Assessment 1945 Hepatitis C Screening 1945 Hepatitis B Screening 1964 Zoster Vaccine (1 of 2) 1996 DTaP/Tdap/Td Vaccine (1 - Tdap) 08/24/2001 2 Well Visit 65+ 07/09/2011 Pneumococcal vaccine 65+ (2 of 2 - PPSV23) 01/11/2019 01/11/2018, 01/04/2018 Influenza Vaccine (#1) 2023 8, 12/24/2017, 12/15/2013 Insurance MEDICARE [facility] [place] MEDICARE [facility] [place] Care Teams Dna Analyst Relationship Specialty Start Date End Date Tess Leyva MD PCP - General Family Practice 07/16/21
--- OUTSIDE RECORDS SUMMARY | 2024-04-24 09:17 | XMS_ITS | Clinical Summary ---
Author Organization [facility] Address [address] [place] [address] Care Team Providers Care Bilingual Teacher Name Role Phone Peter Greene MD Primary Care Provider [phone] Source Comments [facility],non-owned Affiliates and Associated Physician Practices is amultiple site organization consisting of ambulatory clinics and hospital sitesin [place], [place], [place] and [place]. This disclosure is being madepursuant to the Care Everywhere program and may not contain all information available regarding this patient. Last updated 17.[facility] Allergies No known active allergies Immunizations Name Administration Dates Next Due INFLUENZA VACCINE, HIGH-DOSE , QUADR. (FLUZONE HIGH-DOSE QUADRIVALENT; 65Y+), 0.7 ML (HD-IIV4) 12/24/2017 Social History Tobacco Use Types Packs/Day Years Used Date Smoking Tobacco: Never Assessed Sex and Gender Information Value Date Recorded Sex Assigned at Not on file Gender Identity Not on file Sexual Orientation Not on file Plan of Treatment Health Maintenance Due Date Last Done Comments MEDICARE AWV 12 MONTHS 1945 HEPATITIS C SCREENING 07/03/1964 DTAP/TDAP/TD VACCINES (1 - Tdap) 1965 PNEUMOCOCCAL VACCINE 50+ (1 of 1 - PCV) 1996 ZOSTER VACCINE (1 of 2) 1996 Respiratory Syncytial Virus (RSV) Vaccine Pt: or over 60 yrs (1 - 1-dose 75+ series) 2021 COVID-19 VACCINE ( - 2023-2 5 season) 2023 INFLUENZA VACCINE (#1) 2023 12/24/2017 DEPRESSION SCREENING 03/06/2024 HEPATITIS B VACCINE Aged Out No longe r eligible based on patient's age to complete this topic HIB VACCINE Aged Out No longer eligi ble based on patient's age to complete this topic HPV VACCINE Aged Out No longer eligi ble based on patient's age to complete this topic MENINGOCOCCAL (Group B) VACCINE Aged Out No longer eligible based on patient's age to complete this topic MENINGOCOCCAL VACCINE Aged Out No beatriz therese eligible based on patient's age to complete this topic Care Teams Bilingual Teacher Relationship Specialty Start Date End Date Peter Greene MD [address] [place] [address] PCP - General 09/15/17
--- OUTSIDE RECORDS SUMMARY | 2024-04-24 09:17 | XMS_ITS | Referral Summary ---
Author Organization [facility] Address [address] [place] [address] Care Team Providers Care Shovel Logger Name Role Phone Tess Leyva MD Primary Care Provider Encounters Date Type Department Care Team Description 02/21/2024 Orders Only [facility] Cardiology [address] [facility] [address] [place] [address] ProviderJose MD 02/09/2024 11:30 AM ASIAN ART CURATOR Office Visit [facility] Cardiology at [address] [place] [address] Pelon Pruett MD Essential hypertension (Primary Dx); Hyperlipidemia LDL goal <100; Gastroesophageal reflux disease without esophagitis; VIRY (obstructive sleep apnea); Lower extremity edema from Last 3 Months Allergies Active Allergy Reactions Criticality Noted Date Comments Herlfanf-Tndqdxgcht-Dbtwysfwf Hives Medium 2018 Medications amLODIPine (NORVASC) 10 [...] TIMES INTRANASALLY TWICE A DAY. AIM BACK/UP/OUT 4 Active Active Problems Problem Noted Date Diagnosed Date Essential hypertension 02/04/2022 Lower extremity edema 02/04/2022 Hyperlipidemia LDL goal <100 02/04/2022 VIRY (obstructive sleep apnea) 02/04/2022 Gastroesophageal reflux disease without esophagi tis 02/04/2022 Social History Tobacco Use Types Packs/Day Years [...] on file Sexual Orientation Not on file Last Filed Vital Signs Vital Sign Reading Time Taken Comments Blood Pressure 138/88 02/09/2024 11:38 AM ASIAN ART CURATOR Pulse 82 02/09/2024 11:38 AM ASIAN ART CURATOR Temperature - - Respiratory Rate - - Oxygen Saturation 96% 02/09/2024 11:38 AM ASIAN ART CURATOR Inhaled Oxygen Concentration - - Weight 92.1 kg (203 lb) 02/09/2024 11:38 AM ASIAN ART CURATOR Height 182.9 cm (6') 02/09/2024 11:38 AM ASIAN ART CURATOR Body Mass Index 27.53 02/09/2024 11:38 AM ASIAN ART CURATOR Plan of Treatment Not on file Insurance MEDIC[employer] [place] [employer] [place] Care Teams Shovel Logger Relationship Specialty Start Date End Date Tess Leyva MD PCP - General Family Practice 07/16/21
--- OUTSIDE RECORDS SUMMARY | 2024-04-24 09:18 | XMS_ITS | Clinical Summary ---
Author Organization [facility] Address [address] [place] [address] Phone Care Team Providers Care Wood Tool Maker Name Role Phone Tess Leyva MD Primary Care Provider Juliocesar Jenkins MD Unavailable [phone] Allergies Active Allergy Reactions Criticality Noted Date Comments Bacitracin Other (see Comments) 12/27/2021 blisters Bee Venom Anaphylaxis High 12/27/2021 Codeine Itching 12/27/2021 hallucinations Polymyxin B Other (see Comments) 12/27/2021 blisters Medications atorvastatin (LIPITOR) 40 MG Tablet Take 40 mg by mouth daily. Active ezetimibe (ZETIA) 10 MG Tablet Take 5 mg by mouth daily. Active ALPRAZolam (XANAX) 0.25 MG Tablet Take 0.25 mg by mouth 3 times daily as needed. Active venlafaxine (Effexor XR) 150 MG CAPSULE SR 24 HR Take 150 mg by mouth daily. Active finasteride (PROSCAR) 5 MG Tablet Take 5 mg by mouth daily. Active Acetaminophen-Ca ffeine (EXCEDRIN TENSION HEADACHE PO) Take by mouth. Active Multiple Vitamin (MULTIVITAMIN PO) Take by mouth. Active Calcium Citrate (CITRACAL PO) Take by mouth. Active Cyanocobalamin (VITAMIN B 12 PO) Take by mouth. Active Zinc 50 MG Capsule Take by mouth. Active Coenzyme Q10 (CO Q 10 PO) Take by mouth. Active Family History * Patient is adopted Relation Name Status Comments Father Mother Social History Tobacco Use Types Packs/Day Years Used Date Smoking Tobacco: Never Smokeless Tobacco: Never Tobacco Cessation:Counseling Given: Not Answered Alcohol Use Standard Drinks/Week Comments Yes 0 (1 standard drink = 0.6 oz pur e alcohol) social Sex and Gender Information Value Date Recorded Sex Assigned at Not on file Legal Sex Male 1:32 PM CDT Gender Identity Not on file Sexual Orientation Not on file Last Filed Vital Signs Vital Sign Reading Time Taken Comments Blood Pressure 130/80 03/11/2022 11:22 AM BERRY PLANTER Pulse 81 03/11/2022 11:22 AM BERRY PLANTER Temperature 36.1 C (96.9 F) 03/11/2022 11:22 AM BERRY PLANTER Respiratory Rate 18 03/11/2022 11:2 2 AM BERRY PLANTER Oxygen Saturation 96% 03/11/2022 11: 22 AM BERRY PLANTER Inhaled Oxygen Concentration - - Weight 90.6 kg (199 lb 11.2 oz) 023 11:22 AM BERRY PLANTER Height 182.9 cm (6') 03/11/2022 11:22 AM BERRY PLANTER Body Mass Index 27.08 03/11/2022 11:22 AM BERRY PLANTER Plan of Treatment Health Maintenance Due Date Last Done Comments Hepatitis C Virus (HCV) Screening 1945 TdaP Immunization 1945 Zoster Immunization (1 of 2) 1996 Pneumococcal Immunization (50+ years) (2 of 2 - PPSV23) 01/11/2019 01/11/2018, 01/04/2018 Respiratory Syncytial Virus (RSV) Immunization (Adult) (1 - 1-dose 75+ series) 2021 Influenza Immunization (#1) 11/05/20230 03/2017, 12/24/2017, 12/24/2017 SARS-COV-2 Immunization ( season) 2023 DTaP/Tdap/Td Immunization Discontinued 08/23/2001 Hepatitis B Immunization Aged Out No longer eligible based on patient's age to complete this topic Meningococcal Immunization (ACWY) Aged Out No longer eligible based on patient's age to complete this topic Rotavirus Immunization Aged Out No lo nger eligible based on patient's age to complete this topic Insurance [employer]IC[employer] Care Teams Wood Tool Maker Relationship Specialty Start Date End Date Tess Leyva MD PCP - General Family Medicine 12/24/21 Juliocesar Jenkins MD [address] [place] [address] Consulting Physician Neurology 03/11/22
--- OUTSIDE RECORDS SUMMARY | 2024-04-24 09:18 | XMS_ITS | Patient Health Summary ---
Author Organization [facility] Address [address] [place] [address] Care Team Providers Care Physical Design Engineer Name Role Phone Peter Greene MD Primary Care Provider [phone] Note from [facility],non-owned Affiliates and Associated Physician Practices is amultiple site organization consisting of ambulatory clinics and hospital sitesin [place], [place], [place] and [place]. This disclosure is being madepursuant to the Care Everywhere program and may not contain all information available regarding this patient. Last updated 17.[facility] Allergies No known active allergies Immunizations * INFLUENZA VACCINE, HIGH-DOSE, QUADR. (FLUZONE HIGH-DOSE QUADRIVALENT; 65Y+), 0.7 ML (HD-IIV4)(Given 12/24/2017) Social History Tobacco Use Types Packs/Day Years Used Date Smoking Tobacco: Never Assessed Sex and Gender Information Value Date Recorded Sex Assigned at Not on file Gender Identity Not on file Sexual Orientation Not on file Procedures * DERMATOPATHOLOGY(Performed 08/16/2022) * DERMATOPATHOLOGY(Performed 06/23/2017) * DERMATOPATHOLOGY(Performed 10/04/2016) * DERMATOPATHOLOGY(Performed 02/10/2016) * DERMATOPATHOLOGY(Performed 02/11/2015) * DERMATOPATHOLOGY(Performed 02/14/2013) Results * DERMATOPATHOLOGY (08/16/2022 12:00 AM CDT) Only the most recent of6 resultswithin the time period is included. Case Report Dermatopathology Report Case: [id number] Authorizing Provider: Leeroy Lance MD Collected: 08/16/2022 12:00 AM Ordering Location: [facility] DermPath Lab Received: 08/18/2022 07:05 AM Pathologist: Estefany Thao MD Specimens: A) - Skin, right jawline B) - Skin, right lateral breast 12:[address] [facility] DERMATOPATHOLOGY LABORATORY Final Diagnosis Specimen A. SKIN, right jawline: BASAL CELL CARCINOMA, NODULAR TYPE (C44.319) Specimen B. SKIN, right lateral breast: LICHEN PLANUS-LIKE KERATOSIS (BENIGN LICHENOID KERATOSIS) (L82.1) POST-INFLAMMATORY PIGMENT ALTERATION (L81.9) 12:35 PM T DERMATOPATHOLOGY LABORATORY Clinical History A-B: R/O BCC 12:[address] [facility] DERMATOPATHOLOGY LABORATORY Gross Description Specimen A: Received is one formalin filled container labeled with the patient's name and designated right jawline. The specimen consists of a shave biopsy measuring 7x5x1 mm. Jar 0. Specimen B: Received is one formalin filled container labeled with the patient's name and designated right lateral breast. The specimen consists of a shave biopsy measuring 10x4x1 mm. Jar 0. 12:[address] [facility] DERMATOPATHOLOGY LABORATORY Microscopic Description Specimen A. SKIN, right jawline: Within the dermis there are aggregates of basaloid cells with a high nuclear to cytoplasmic ratio and peripheral palisading. Specimen B. SKIN, right lateral breast: The epidermis is mildly acanthotic. There is a lichenoid infiltrate with vacuolar changes of basilar keratinocytes and scattered necrotic keratinocytes. Sections show abundant melanin within melanophages around the superficial vascular plexus. 12:[address] [facility] DERMATOPATHOLOGY LABORATORY Disclaimer An external and internal positive and negative controls are appropriate for the histochemical, immunohistochemical and immunofluorescence stain(s) in this case (if any), except where stated explicitly. The performance characteristics of the stain(s) cited in this report were developed and its performance characteristic determined by the Dermatopathology Laboratory at [facility], directed by Dr. Elba Marquez. These tests need not be, and therefore are not, approved by the [place] Food and Drug Administration. The tests are used for clinical purposes. Billing Codes Specimen Charges Stain Charges 81439 96204 1 1 3 12:35 PM CDT DERMATOPATHOLOGY LABORATORY Embedded Images 12:35 PM CDT DERMATOPATHOLOGY LABORATORY Pathology/Cytology TISSUE SPECIMEN FROM SKIN / Unknown 08/16/2022 08/18/2022 7:05 AM CDT Miscellaneous samples (specimen) TISSUE SPECIMEN FROM SKIN / Unknown 08/16/2022 08/18/2022 7:05 AM CDT Leeroy Lance MD LAB - PATHOLOGY/CYTO LOGY ORDERABLES DERMATOPATHOLOGY LABORATORY [facility] - Department of Dermatology [facility] Medicine [address] [place] [address], [address] [phone] Care Teams Physical Design Engineer Relationship Specialty Start Date End Date Peter Greene MD [address] [place] [phone] PCP - General 09/15/17
--- OUTSIDE RECORDS SUMMARY | 2024-04-24 09:18 | XMS_ITS ---
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 Role Phone Tess Leyva MD Primary Care Provider Unavailable Luis Santo Unavailable [phone] Allergies No Known Allergies REASON FOR VISIT per hansa it was ok to book for today Medications Medication SIG (Take, Route, Frequency, Duration) Notes Start Date End Date Status Mupirocin 2% External 05/08/2023 Unknow n methylPREDNISolone 4 MG Oral 05/08/2023 Unknown Atorvastatin Calcium 40 MG Oral 05/08/2023 Unknown Topiramate 25 MG 1 to 2 tablet at bedtime Orally Once a day for 30 days Active ALPRAZolam 1 MG 1 tablet Orally once a day for 30 days As needed 01/11/2024 Active Venlafaxine HCl ER 150 MG 1 capsule with food Orally Once a day for 90 days Active amLODIPine Besylate 10 MG Oral 05/08/2023 Unknown Trintellix 20 MG Oral 05/08/2023 Un known Finasteride 5 MG Oral 05/08/2023 Un known Furosemide 20 MG Oral 05/08/2023 Un known Fluticasone Propionate Diskus 50 MCG/ACT Inhalation *Reorder from [employer] for eRx and Interaction Alerts* 05/08/2023 Unknown RYALTRIS 665 MCG-25 MCG/SPRAY NASAL SPRAY *Reorder from [employer] for eRx and Interaction Alerts* 05/08/2023 Unknown Omeprazole 40 MG Oral 05/08/2023 Un known Ezetimibe 10 MG Oral 05/08/2023 Unk nown Vilazodone HCl 40 MG TAKE 1 TABLET BY MOUTH EVERY DAY for 90 Active Azelastine HCl 137 MCG/SPRAY Nasal 05/08/2023 Unknown Omeprazole 20 MG Oral 05/08/2023 Ac tive Doxycycline Hyclate 100 MG Oral 05/08/2023 Unknown Triamcinolone Acetonide 0.1% External 05/08/2023 Unknown Topamax 50 MG Oral 05/08/2023 Unkno wn Tamsulosin HCl 0.4 MG Oral 05/08/2023 Unknown Vilazodone HCl 20 MG 1 tablet with food Orally Once a day for 90 days 01/11/2024 Active Fluorouracil 5 % External 05/08/2023 Un known Social History Sex Assigned At : Social History Observation Description Sex Assigned At Male Vital Signs Blood pressure systolic 136 mm Hg 01/11/20 24 Blood pressure diastolic 79 mm Hg 024 Heart Rate 84 /min 01/11/2024 Height 72.01 in 01/11/2024 Weight 198 lbs 01/11/2024 BMI 26.84 kg/m2 01/11/2024 Height-cm 182.91 cm 01/11/2024 Weight-kg 89.81 kg 01/11/2024 Encounters Encounter Location Date Provider Diagnosis [facility] [employer] [address] [address] 01/11/2024 Luis Hansa Major depressive disorder, recurrent severe without psychotic features F33.2 ; Generalized anxiety disorder F41.1 ; Essential (primary) hypertension I10 and Body mass index (BMI) 27.0-27.9, adult Z68.27 Assessments Encounter Date Diagnosis (ICD Code) Assessment Notes Treatment Notes Treatment Clinical Notes Section Notes 01/11/2024 Major depressive disorder, recurrent severe without psychotic features (ICD-10 - F33.2) Nocturnal Tremors - Assessment: Patient reports severe nocturnal tremors observed by his . Tremors occur infrequently without daytime symptoms or functional impairment. Patient is on serotonergic medications (Viibryd 40 mg and venlafaxine) which may increase risk of myoclonus jerking. Most recent episode lasted 1 hour and 5 minutes, involving whole-body tremors, occurring around midnight, 2-3 hours after bedtime. Patient did not wake during episode and was unaware of tremors. - Plan: - Reduce vilazodone dosage from 40 mg to 20 mg daily. - Instruct patient's to videotape future episodes of nocturnal tremors. - Consider sleep study to assess presence and stage of sleep during tremors. - Schedule follow-up appointment in two months. Depression and Anxiety - Assessment: Patient currently on Viibryd (vilazodone) 40 mg and venlafaxine. No significant worsening of symptoms or functional impairment reported. - Plan: - Monitor depression and anxiety symptoms following reduction of vilazodone dosage. - Reassess need for medication adjustments at follow-up appointment. Sleep Disturbances - Assessment: Patient typically wakes twice nightly to use bathroom, but did not during tremor episode. Describes himself as a good sleeper overall. Reported sleeping harder than usual on night of tremor episode. - Plan: - Monitor sleep patterns and changes following reduction of vilazodone dosage. - Reassess sleep disturbances at follow-up appointment. Stress and Family Issues - Assessment: Patient reports ongoing stress related to family issues, particularly with his son. Does not believe direct connection between stress and nocturnal tremors. - Plan: - Encourage patient to seek appropriate support and coping strategies for managing stress and family issues. - Reassess impact of stress on overall well-being at follow-up appointment. 01/11/2024 Generalized anxiety disorder (ICD-10 - F41.1) Nocturnal Tremors - Assessment: Patient reports severe nocturnal tremors observed by his . Tremors occur infrequently without daytime symptoms or functional impairment. Patient is on serotonergic medications (Viibryd 40 mg and venlafaxine) which may increase risk of myoclonus jerking. Most recent episode lasted 1 hour and 5 minutes, involving whole-body tremors, occurring around midnight, 2-3 hours after bedtime. Patient did not wake during episode and was unaware of tremors. - Plan: - Reduce vilazodone dosage from 40 mg to 20 mg daily. - Instruct patient's to videotape future episodes of nocturnal tremors. - Consider sleep study to assess presence and stage of sleep during tremors. - Schedule follow-up appointment in two months. Depression and Anxiety - Assessment: Patient currently on Viibryd (vilazodone) 40 mg and venlafaxine. No significant worsening of symptoms or functional impairment reported. - Plan: - Monitor depression and anxiety symptoms following reduction of vilazodone dosage. - Reassess need for medication adjustments at follow-up appointment. Sleep Disturbances - Assessment: Patient typically wakes twice nightly to use bathroom, but did not during tremor episode. Describes himself as a good sleeper overall. Reported sleeping harder than usual on night of tremor episode. - Plan: - Monitor sleep patterns and changes following reduction of vilazodone dosage. - Reassess sleep disturbances at follow-up appointment. Stress and Family Issues - Assessment: Patient reports ongoing stress related to family issues, particularly with his son. Does not believe direct connection between stress and nocturnal tremors. - Plan: - Encourage patient to seek appropriate support and coping strategies for managing stress and family issues. - Reassess impact of stress on overall well-being at follow-up appointment. 01/11/2024 Essential (primary) hypertension (ICD-10 - I10) Nocturnal Tremors - Assessment: Patient reports severe nocturnal tremors observed by his . Tremors occur infrequently without daytime symptoms or functional impairment. Patient is on serotonergic medications (Viibryd 40 mg and venlafaxine) which may increase risk of myoclonus jerking. Most recent episode lasted 1 hour and 5 minutes, involving whole-body tremors, occurring around midnight, 2-3 hours after bedtime. Patient did not wake during episode and was unaware of tremors. - Plan: - Reduce vilazodone dosage from 40 mg to 20 mg daily. - Instruct patient's to videotape future episodes of nocturnal tremors. - Consider sleep study to assess presence and stage of sleep during tremors. - Schedule follow-up appointment in two months. Depression and Anxiety - Assessment: Patient currently on Viibryd (vilazodone) 40 mg and venlafaxine. No significant worsening of symptoms or functional impairment reported. - Plan: - Monitor depression and anxiety symptoms following reduction of vilazodone dosage. - Reassess need for medication adjustments at follow-up appointment. Sleep Disturbances - Assessment: Patient typically wakes twice nightly to use bathroom, but did not during tremor episode. Describes himself as a good sleeper overall. Reported sleeping harder than usual on night of tremor episode. - Plan: - Monitor sleep patterns and changes following reduction of vilazodone dosage. - Reassess sleep disturbances at follow-up appointment. Stress and Family Issues - Assessment: Patient reports ongoing stress related to family issues, particularly with his son. Does not believe direct connection between stress and nocturnal tremors. - Plan: - Encourage patient to seek appropriate support and coping strategies for managing stress and family issues. - Reassess impact of stress on overall well-being at follow-up appointment. 01/11/2024 Body mass index (BMI) 27.0-27.9, adult (ICD-10 - Z68.27) Nocturnal Tremors - Assessment: Patient reports severe nocturnal tremors observed by his . Tremors occur infrequently without daytime symptoms or functional impairment. Patient is on serotonergic medications (Viibryd 40 mg and venlafaxine) which may increase risk of myoclonus jerking. Most recent episode lasted 1 hour and 5 minutes, involving whole-body tremors, occurring around midnight, 2-3 hours after bedtime. Patient did not wake during episode and was unaware of tremors. - Plan: - Reduce vilazodone dosage from 40 mg to 20 mg daily. - Instruct patient's to videotape future episodes of nocturnal tremors. - Consider sleep study to assess presence and stage of sleep during tremors. - Schedule follow-up appointment in two months. Depression and Anxiety - Assessment: Patient currently on Viibryd (vilazodone) 40 mg and venlafaxine. No significant worsening of symptoms or functional impairment reported. - Plan: - Monitor depression and anxiety symptoms following reduction of vilazodone dosage. - Reassess need for medication adjustments at follow-up appointment. Sleep Disturbances - Assessment: Patient typically wakes twice nightly to use bathroom, but did not during tremor episode. Describes himself as a good sleeper overall. Reported sleeping harder than usual on night of tremor episode. - Plan: - Monitor sleep patterns and changes following reduction of vilazodone dosage. - Reassess sleep disturbances at follow-up appointment. Stress and Family Issues - Assessment: Patient reports ongoing stress related to family issues, particularly with his son. Does not believe direct connection between stress and nocturnal tremors. - Plan: - Encourage patient to seek appropriate support and coping strategies for managing stress and family issues. - Reassess impact of stress on overall well-being at follow-up appointment. Plan Of Treatment Medication Medication Name Sig Start Date Stop Date Notes Topiramate 25 MG 1 to 2 tablet at bed time Orally Once a day for 30 days ALPRAZolam 1 MG 1 tablet Orally once a day for 30 days 01/11/2024 Venlafaxine HCl ER 150 MG 1 capsule with food Orally Once a day for 90 days Vilazodone HCl 20 MG 1 tablet with food Orally Once a day for 90 days 01/11/2024 Next Appt Details Follow Up: 2 Months, Reason: Provider Name:Luis Sheppardam , 06/05/2024 01:00:00 PM, [address], [facility] [address], [place], [address], Progress Notes * NINI LANG DDOB:1945 (78 yo M)Acc No.[id number]:01/11/2024 Patient: NINI COOK Provider: Ximena SANTO MD :1945 A ge:78 Y S ex:Male Date:01/11/2024 Address:[address] [place], [place] [id number] Pcp:Tess Gupta Subjective: * Chief Complaints: * P zbigniew santo it was ok to book for today * HPI: H istory of Presenting Problem: Chief Complaint: Severe tremors during sleep The note is transcribed using speech recognition software. It is a reflection of a visit with the patient. It might have some inaccuracy, including medication names and transcribing errors, though efforts have been made to correct them. The patient reports that his observed him experiencing severe tremors while he was asleep on Monday night, lasting for an hour and a half. The patient was unaware of the episode and only found out the next morning. He mentions that this has happened before, but he did not notice it at home. The tremors occurred around midnight, about 2-3 hours after the patient went to bed. The patient's described the tremors as heavy and hard, causing the whole bed to shake. Sleep Pattern: The patient had driven for six to seven hours straight before going to bed that night and slept deeply without waking up to use the bathroom, which is unusual for him. He typically goes to bed between 10:00 and 10:30 PM and is always tired in the morning, which is usual for him. Symptoms: The patient denies feeling more tired or fatigued the next day. He does not experience tremors during the day or leg cramps. The patient expresses confusion about the sudden occurrence of these tremors and their severity. Diet and Alcohol: He states that he did not consume alcohol or dinner that night, only having a large afternoon meal around 4 PM. Medications: The patient is currently taking Viibryd (40 mg) and venlafaxine, which he believes may be related to the tremors. Stressors: The patient mentions being stressed due to family issues, particularly with his son, and trying to move out of the area. However, he does not see a direct connection between the stress and the night tremors. Treatment Considerations: The patient is considering lowering his medication but is unsure how to escort blind its effectiveness since he is not aware of the tremors. He feels fine during the day, working hard and staying active. The patient is open to the idea of a sleep study to determine the cause of the tremors and at which stage of sleep they occur. Upcoming Appointment: The patient is considering a follow-up appointment in two months to assess the effectiveness of any changes in medication or treatment. * Medical History: * Surgical History: * Hospitalization/Major Diagno stic Procedure: * Social History: M igrated Social History: M igrated Social History: Alcohol Intake: Occasional 04/27/2018,Tobacco Years: Never smoker 04/27/2018. * Medications: T akingOmeprazole 20 MG Capsule Delayed Release Oral ALPRAZolam 1 MG Tablet 1 tablet Orally once a day As neededTopiramate 25 MG Tablet 1 to 2 tablet at bedtime Orally Once a day Vilazodone HCl 40 MG Tablet TAKE 1 TABLET BY MOUTH EVERY DAY Venlafaxine HCl ER 150 MG Capsule Extended Release 24 Hour 1 capsule with food Orally Once a day Taking Omeprazole 20 MG Capsule Delayed Release Oral Taking ALPRAZolam 1 MG Tablet 1 tablet Orally once a day As neededTaking Topiramate 25 MG Tablet 1 to 2 tablet at bedtime Orally Once a day Taking Vilazodone HCl 40 MG Tablet TAKE 1 TABLET BY MOUTH EVERY DAY Taking Venlafaxine HCl ER 150 MG Capsule Extended Release 24 Hour 1 capsule with food Orally Once a day DiscontinuedViibryd 40 MG Tablet 1 tablet with food Orally Once a day Discontinued Viibryd 40 MG Tablet 1 tablet with food Orally Once a day UnknownRYALTRIS 665 MCG-25 MCG/SPRAY NASAL SPRAY , Notes to Pharmacist: *Reorder from [employer] for eRx and Interaction Alerts*Fluticasone Propionate Diskus 50 MCG/ACT Aerosol Powder Breath Activated Inhalation , Notes to Pharmacist: *Reorder from [facility] for eRx and Interaction Alerts*Ezetimibe 10 MG Tablet Oral Omeprazole 40 MG Capsule Delayed Release Oral Furosemide 20 MG Tablet Oral Finasteride 5 MG Tablet Oral Trintellix 20 MG Tablet Oral amLODIPine Besylate 10 MG Tablet Oral Atorvastatin Calcium 40 MG Tablet Oral methylPREDNISolone 4 MG Tablet Therapy Pack Oral Mupirocin 2% Ointment External Tamsulosin HCl 0.4 MG Capsule Oral Topamax 50 MG Tablet Oral Fluorouracil 5 % Cream External Azelastine HCl 137 MCG/SPRAY Solution Nasal Triamcinolone Acetonide 0.1% Cream External Doxycycline Hyclate 100 MG Tablet Oral Medication List reviewed and reconciled with the patientDenisenowtano RYALTRIS 665 MCG-25 MCG/SPRAY NASAL SPRAY , Notes to Pharmacist: *Reorder from [facility] for eRx and Interaction Alerts*Unknown Fluticasone Propionate Diskus 50 MCG/ACT Aerosol Powder Breath Activated Inhalation , Notes to Pharmacist: *Reorder from [facility] for eRx and Interaction Alerts*Unknown Ezetimibe 10 MG Tablet Oral Unknown Omeprazole 40 MG Capsule Delayed Release Oral Unknown Furosemide 20 MG Tablet Oral Unknown Finasteride 5 MG Tablet Oral Unknown Trintellix 20 MG Tablet Oral Unknown amLODIPine Besylate 10 MG Tablet Oral Unknown Atorvastatin Calcium 40 MG Tablet Oral Unknown methylPREDNISolone 4 MG Tablet Therapy Pack Oral Unknown Mupirocin 2% Ointment External Unknown Tamsulosin HCl 0.4 MG Capsule Oral Unknown Topamax 50 MG Tablet Oral Unknown Fluorouracil 5 % Cream External Unknown Azelastine HCl 137 MCG/SPRAY Solution Nasal Unknown Triamcinolone Acetonide 0.1% Cream External Unknown Doxycycline Hyclate 100 MG Tablet Oral Medication List reviewed and reconciled with the patient * Allergies: N .K.D.A.no[Allergies Verified] Objective: * Vitals: B P:136/79mm Hg, HR:84/min, Wt:198lbs, Wt-k.81 kg, Ht: 72.01 in, Ht-cm: 182.91 cm, BMI:26.84Index, Body Surface Area: 2.13. * Examination: G eneral Examination: M ental Status Examination: Patient was alert and oriented. No daytime tremors or shakes observed. Reports feeling fine during the day, actively working and staying engaged in various activities. Describes sleep as generally good, except for the reported night of the incident. Patient reports some ongoing stress related to family issues. Vital Signs: review the notes for vitals Physical Examination: General: Patient reports being slightly overweight. Neurological: No tremors or abnormal movements observed during the daytime. Additional Information: Patient reports nocturnal tremors lasting approximately 1 hour and 5 minutes, as observed by spouse. Patient was unaware of the tremors and did not wake up during the episode. No daytime fatigue or other symptoms reported following the incident. Patient typically wakes 2 times per night to use the bathroom, but did not wake at all on the night of the reported tremors. Currently taking Viibryd 40mg and venlafaxine. Assessment: * Assessment: 1. M ajor depressive disorder, recurrent severe without psychotic features - F33.2 (Primary)? 2. G eneralized anxiety disorder - F41.1 3 . E ssential (primary) hypertension - I10 4 . B obinna mass index (BMI) 27.0-27.9, adult - Z68.27? Nocturnal Tremors - Assessment: Patient reports severe nocturnal tremors observed by his . Tremors occur infrequently without daytime symptoms or functional impairment. Patient is on serotonergic medications (Viibryd 40 mg and venlafaxine) which may increase risk of myoclonus jerking. Most recent episode lasted 1 hour and 5 minutes, involving whole-body tremors, occurring around midnight, 2-3 hours after bedtime. Patient did not wake during episode and was unaware of tremors. - Plan: - Reduce vilazodone dosage from 40 mg to 20 mg daily. - Instruct patient's to videotape future episodes of nocturnal tremors. - Consider sleep study to assess presence and stage of sleep during tremors. - Schedule follow-up appointment in two months. Depression and Anxiety - Assessment: Patient currently on Viibryd (vilazodone) 40 mg and venlafaxine. No significant worsening of symptoms or functional impairment reported. - Plan: - Monitor depression and anxiety symptoms following reduction of vilazodone dosage. - Reassess need for medication adjustments at follow-up appointment. Sleep Disturbances - Assessment: Patient typically wakes twice nightly to use bathroom, but did not during tremor episode. Describes himself as a good sleeper overall. Reported sleeping harder than usual on night of tremor episode. - Plan: - Monitor sleep patterns and changes following reduction of vilazodone dosage. - Reassess sleep disturbances at follow-up appointment. Stress and Family Issues - Assessment: Patient reports ongoing stress related to family issues, particularly with his son. Does not believe direct connection between stress and nocturnal tremors. - Plan: - Encourage patient to seek appropriate support and coping strategies for managing stress and family issues. - Reassess impact of stress on overall well-being at follow-up appointment. Plan: * Treatment: 2. G eneralized anxiety disorder Refill ALPRAZolam Tablet, 1 MG, 1 tablet, Orally, once a day As needed, 30 days, 30 Tablet, Refills 2. 3. B obinna mass index (BMI) 27.0-27.9, adult Refill Topiramate Tablet, 25 MG, 1 to 2 tablet at bedtime, Orally, Once a day, 30 days, 60, Refills 3. * Procedure Codes: * Follow Up: 2 Months * Billing Information: * Visit Code: 01173 OFFICE OUTPATIENT VISIT 25 MINUTES DETAILED HISTORY AND EXAM/MODERATE MEDICAL DECISION MAKING. * Procedure Codes: * SOFTWARE DEVELOPER Sign off status: Completed true * Provider: Ximena SANTO MD Date: 03/12/2023 Generated for Maximus morrissey/Raine/Radhikaitting on: 0 04/24/2024 09:17 AM [employer] SOFTWARE DEVELOPER History and Physical Notes * Examination Category Sub-Category Detail Notes Category Not es General Examination Mental Status Examination: Patient was alert and oriented. No daytime tremors or shakes observed. Reports feeling fine during the day, actively working and staying engaged in various activities. Describes sleep as generally good, except for the reported night of the incident. Patient reports some ongoing stress related to family issues. Vital Signs: review the notes for vitals Physical Examination: General: Patient reports being slightly overweight. Neurological: No tremors or abnormal movements observed during the daytime. Additional Information: Patient reports nocturnal tremors lasting approximately 1 hour and 5 minutes, as observed by spouse. Patient was unaware of the tremors and did not wake up during the episode. No daytime fatigue or other symptoms reported following the incident. Patient typically wakes 2 times per night to use the bathroom, but did not wake at all on the night of the reported tremors. Currently taking Viibryd 40mg and venlafaxine.
--- OUTSIDE RECORDS SUMMARY | 2024-04-24 09:18 | XMS_ITS | Referral Summary ---
Author Organization [facility] [employer] Address [address] [place] [address] Care Team Providers Care Edi Specialist Name Role Phone Peter Greene MD Primary Care Provider [phone] Source Comments [facility],non-owned Affiliates and Associated Physician Practices is amultiple site organization consisting of ambulatory clinics and hospital sitesin [place], [place], [place] and [place]. This disclosure is being madepursuant to the Care Everywhere program and may not contain all information available regarding this patient. Last updated 17.[facility] Allergies No known active allergies Immunizations Name Administration Dates Next Due INFLUENZA VACCINE, HIGH-DOSE , QUADR. (FLUZONE HIGH-DOSE QUADRIVALENT; 65Y+), 0.7 ML (HD-IIV4) 12/24/2017 Social History Tobacco Use Types Packs/Day Years Used Date Smoking Tobacco: Never Assessed Sex and Gender Information Value Date Recorded Sex Assigned at Not on file Gender Identity Not on file Sexual Orientation Not on file Plan of Treatment Not on file Care Teams Edi Specialist Relationship Specialty Start Date End Date Peter Greene MD [address] [place] [address] PCP - General 09/15/17
--- OUTSIDE RECORDS SUMMARY | 2024-04-24 09:18 | XMS_ITS ---
Author Organization [facility] [place] Address [address] [place] [address] Care Team Providers Care Hat Brim Curler Name Role Phone Tess Leyva MD Primary Care Provider Unavailable Luis Grigsby Unavailable [phone] Allergies No Known Allergies REASON FOR VISIT Follow up, Refused to do slums, MIPS BP NORMAL, Depression screening positive Medications Medication SIG (Take, Route, Frequency, Duration) Notes Start Date End Date Status Doxycycline Hyclate 100 MG Oral 05/08/2023 Unknown Venlafaxine HCl ER 150 MG 1 capsule with food Orally Once a day for 90 days Active ALPRAZolam 1 MG 1 tablet Orally once a day for 30 days As needed Active Vilazodone HCl 20 MG 1 tablet with food Orally Once a day for 90 days Active Triamcinolone Acetonide 0.1% External 05/08/2023 Unknown Tamsulosin HCl 0.4 MG Oral 05/08/2023 Unknown Mupirocin 2% External 05/08/2023 Unknow n Fluorouracil 5 % External 05/08/2023 Un known Topamax 50 MG Oral 05/08/2023 Unkno wn Azelastine HCl 137 MCG/SPRAY Nasal 05/08/2023 Unknown Finasteride 5 MG Oral 05/08/2023 Un known amLODIPine Besylate 10 MG Oral 05/08/2023 Unknown Trintellix 20 MG Oral 05/08/2023 Un known methylPREDNISolone 4 MG Oral 05/08/2023 Unknown Atorvastatin Calcium 40 MG Oral 05/08/2023 Unknown Fluticasone Propionate Diskus 50 MCG/ACT Inhalation *Reorder from [facility] for eRx and Interaction Alerts* 05/08/2023 Unknown RYALTRIS 665 MCG-25 MCG/SPRAY NASAL SPRAY *Reorder from [facility] for eRx and Interaction Alerts* 05/08/2023 Unknown Omeprazole 40 MG Oral 05/08/2023 Un known Ezetimibe 10 MG Oral 05/08/2023 Unk nown Furosemide 20 MG Oral 05/08/2023 Un known Topiramate 25 MG 1 to 2 tablet at bedtime Orally Once a day for 30 days Active Omeprazole 20 MG Oral 05/08/2023 Ac tive Social History Sex Assigned At : Social History Observation Description Sex Assigned At Male Vital Signs Blood pressure systolic 116 mm Hg 03/08/19 25 Blood pressure diastolic 74 mm Hg 025 Heart Rate 92 /min 03/08/2024 Height 72.01 in 03/08/2024 Weight 204 lbs 03/08/2024 BMI 27.66 kg/m2 03/08/2024 Height-cm 182.91 cm 03/08/2024 Weight-kg 92.53 kg 03/08/2024 Encounters Encounter Location Date Provider Diagnosis [facility] [address] [facility] [address] [facility] [address] [place] [address] 03/08/2024 Luis Grigsby Major depressive disorder, recurrent severe without psychotic features F33.2 ; Generalized anxiety disorder F41.1 ; Essential (primary) hypertension I10 and Body mass index (BMI) 27.0-27.9, adult Z68.27 Assessments Encounter Date Diagnosis (ICD Code) Assessment Notes Treatment Notes Treatment Clinical Notes Section Notes 03/08/2024 Major depressive disorder, recurrent severe without psychotic features (ICD-10 - F33.2) Nasal Obstruction and Planned Surgery - Assessment: Patient reports previous plans for nasal surgery with Dr. Hunt, who has since transferred. Currently using nasal spray for relief. Patient has a very, very serious problem inside their nose that needs to be addressed. - Plan: - Patient has an appointment with a new doctor on Monday. - Encourage patient to discuss sleep apnea testing with the new doctor, as it may be related to their nasal issues. Tremors and Medication Adjustment - Assessment: Patient reports reduced tremors since last visit. Currently on 20 mg of medication, down from 40 mg, experiencing fewer tremors. Patient notes that 20 mg doesn't seem as effective as 40 mg, but it's not serious and just takes the edge off things a little bit more. - Plan: - Continue current medication dosage (20 mg) to avoid worsening depression and anxiety. - Reassess in 2 months; if patient is still experiencing one episode per month, consider adjusting medication. Osteopenia and Dopamine Medication - Assessment: Patient stopped taking dopamine medication due to concerns about bone degradation. Gained 8 pounds during the 2-month break. Resumed taking the medication last week. - Plan: - Encourage patient to continue taking the medication, as studies from [facility] and [facility] do not confirm negative effects on bones. Exercise and Weight Management - Assessment: Patient received conflicting advice from doctors regarding walking and gym exercises. - Plan: - Encourage patient to mix up their routine, incorporating both walking and gym exercises as tolerated. - Patient plans to stop daily walking and start a varied routine at the gym. Topiramate Continuation - Plan: - Continue Topiramate as requested by patient. - Ensure refills are available at the pharmacy. Upcoming Lab Tests - Plan: - Patient has a scheduled appointment for a full panel at [facility]. - Add parathyroid hormone and calcium tests to the panel to monitor potential effects of dopamine medication on bone health. Follow-up - Plan: - Schedule a follow-up appointment in 2 months to reassess patient's progress and medication effectiveness. 03/08/2024 Generalized anxiety disorder (ICD-10 - F41.1) Nasal Obstruction and Planned Surgery - Assessment: Patient reports previous plans for nasal surgery with Dr. Hunt, who has since transferred. Currently using nasal spray for relief. Patient has a very, very serious problem inside their nose that needs to be addressed. - Plan: - Patient has an appointment with a new doctor on Monday. - Encourage patient to discuss sleep apnea testing with the new doctor, as it may be related to their nasal issues. Tremors and Medication Adjustment - Assessment: Patient reports reduced tremors since last visit. Currently on 20 mg of medication, down from 40 mg, experiencing fewer tremors. Patient notes that 20 mg doesn't seem as effective as 40 mg, but it's not serious and just takes the edge off things a little bit more. - Plan: - Continue current medication dosage (20 mg) to avoid worsening depression and anxiety. - Reassess in 2 months; if patient is still experiencing one episode per month, consider adjusting medication. Osteopenia and Dopamine Medication - Assessment: Patient stopped taking dopamine medication due to concerns about bone degradation. Gained 8 pounds during the 2-month break. Resumed taking the medication last week. - Plan: - Encourage patient to continue taking the medication, as studies from [facility] and [facility] do not confirm negative effects on bones. Exercise and Weight Management - Assessment: Patient received conflicting advice from doctors regarding walking and gym exercises. - Plan: - Encourage patient to mix up their routine, incorporating both walking and gym exercises as tolerated. - Patient plans to stop daily walking and start a varied routine at the gym. Topiramate Continuation - Plan: - Continue Topiramate as requested by patient. - Ensure refills are available at the pharmacy. Upcoming Lab Tests - Plan: - Patient has a scheduled appointment for a full panel at [facility]. - Add parathyroid hormone and calcium tests to the panel to monitor potential effects of dopamine medication on bone health. Follow-up - Plan: - Schedule a follow-up appointment in 2 months to reassess patient's progress and medication effectiveness. 03/08/2024 Essential (primary) hypertension (ICD-10 - I10) Nasal Obstruction and Planned Surgery - Assessment: Patient reports previous plans for nasal surgery with Dr. Hunt, who has since transferred. Currently using nasal spray for relief. Patient has a very, very serious problem inside their nose that needs to be addressed. - Plan: - Patient has an appointment with a new doctor on Monday. - Encourage patient to discuss sleep apnea testing with the new doctor, as it may be related to their nasal issues. Tremors and Medication Adjustment - Assessment: Patient reports reduced tremors since last visit. Currently on 20 mg of medication, down from 40 mg, experiencing fewer tremors. Patient notes that 20 mg doesn't seem as effective as 40 mg, but it's not serious and just takes the edge off things a little bit more. - Plan: - Continue current medication dosage (20 mg) to avoid worsening depression and anxiety. - Reassess in 2 months; if patient is still experiencing one episode per month, consider adjusting medication. Osteopenia and Dopamine Medication - Assessment: Patient stopped taking dopamine medication due to concerns about bone degradation. Gained 8 pounds during the 2-month break. Resumed taking the medication last week. - Plan: - Encourage patient to continue taking the medication, as studies from [facility] and [facility] do not confirm negative effects on bones. Exercise and Weight Management - Assessment: Patient received conflicting advice from doctors regarding walking and gym exercises. - Plan: - Encourage patient to mix up their routine, incorporating both walking and gym exercises as tolerated. - Patient plans to stop daily walking and start a varied routine at the gym. Topiramate Continuation - Plan: - Continue Topiramate as requested by patient. - Ensure refills are available at the pharmacy. Upcoming Lab Tests - Plan: - Patient has a scheduled appointment for a full panel at [facility]. - Add parathyroid hormone and calcium tests to the panel to monitor potential effects of dopamine medication on bone health. Follow-up - Plan: - Schedule a follow-up appointment in 2 months to reassess patient's progress and medication effectiveness. 03/08/2024 Body mass index (BMI) 27.0-27.9, adult (ICD-10 - Z68.27) Nasal Obstruction and Planned Surgery - Assessment: Patient reports previous plans for nasal surgery with Dr. Hunt, who has since transferred. Currently using nasal spray for relief. Patient has a very, very serious problem inside their nose that needs to be addressed. - Plan: - Patient has an appointment with a new doctor on Monday. - Encourage patient to discuss sleep apnea testing with the new doctor, as it may be related to their nasal issues. Tremors and Medication Adjustment - Assessment: Patient reports reduced tremors since last visit. Currently on 20 mg of medication, down from 40 mg, experiencing fewer tremors. Patient notes that 20 mg doesn't seem as effective as 40 mg, but it's not serious and just takes the edge off things a little bit more. - Plan: - Continue current medication dosage (20 mg) to avoid worsening depression and anxiety. - Reassess in 2 months; if patient is still experiencing one episode per month, consider adjusting medication. Osteopenia and Dopamine Medication - Assessment: Patient stopped taking dopamine medication due to concerns about bone degradation. Gained 8 pounds during the 2-month break. Resumed taking the medication last week. - Plan: - Encourage patient to continue taking the medication, as studies from [facility] and [facility] do not confirm negative effects on bones. Exercise and Weight Management - Assessment: Patient received conflicting advice from doctors regarding walking and gym exercises. - Plan: - Encourage patient to mix up their routine, incorporating both walking and gym exercises as tolerated. - Patient plans to stop daily walking and start a varied routine at the gym. Topiramate Continuation - Plan: - Continue Topiramate as requested by patient. - Ensure refills are available at the pharmacy. Upcoming Lab Tests - Plan: - Patient has a scheduled appointment for a full panel at [facility]. - Add parathyroid hormone and calcium tests to the panel to monitor potential effects of dopamine medication on bone health. Follow-up - Plan: - Schedule a follow-up appointment in 2 months to reassess patient's progress and medication effectiveness. Plan Of Treatment Medication Medication Name Sig Start Date Stop Date Notes Venlafaxine HCl ER 150 MG 1 capsule with food Orally Once a day for 90 days ALPRAZolam 1 MG 1 tablet Orally once a day for 30 days Vilazodone HCl 20 MG 1 tablet with food Orally Once a day for 90 days Future Test Test Name Order Date PTH, INTACT AND CALCIUM (8837) Next Appt Details Follow Up: 2 Months, Reason: Provider Name:Luis Grigsby , 06/05/2024 01:00:00 PM, [address] [facility] [address] [facility], [address], [address], Progress Notes * NINI LANG DDOB:1945 (78 yo M)Acc No.[id number]:03/08/2024 Patient: Moni BAUTISTA NINI Alonso Provider: Ximena GRIGSBY MD :1945 A ge:78 Y S ex:Male Date:03/08/2024 Phone: Address:[address] [place], [place] [id number] Pcp:Tess Gupta Subjective: * Chief Complaints: * F ollow upRefused to do slumsMIPS BP NORMALDepression screening positive * HPI: D epression screening: The note is transcribed using speech recognition software. It is a reflection of a visit with the patient. It might have some inaccuracy, including medication names and transcribing errors, though efforts have been made to correct them. Chief Complaint: Nasal issues and medication concerns The patient reports that his main issue is his nose. He was scheduled for nasal surgery last summer with Dr. Hunt, but the doctor transferred to [place]. He has been using nasal spray to breathe and has an appointment with a new doctor on Monday. Medication Management: The patient reports fewer tremors since the last visit, experiencing one tremor on the 20 mg medication and several on the 40 mg. He believes he could manage with the 20 mg dosage. The patient has concerns about taking dopamine medication due to its potential to degrade bones. He stopped taking the medication for 2 months but recently resumed. The patient confirms that he wants to continue Topiramate. Medical History: The patient has osteopenia and reports a poor appetite. Weight Management: The patient's weight increased from 202 to 208 pounds during the two months he was off the medication. He gained 8 pounds when he stopped taking the medication for 2 months. Exercise: The patient has received conflicting advice regarding exercise from his doctor and orthopedist. He plans to mix up his routine with walking, gym membership, recumbent bike, and weights. Upcoming Appointments: The patient will be going for a full panel of labs at [facility] next week. He will add parathyroid hormone and calcium tests to the panel. Concerns: The patient expresses frustration with receiving conflicting information from different healthcare providers regarding exercise and medication. He has read studies from [facility] and [facility] about the medication and is unsure about its potential problems. The patient also notes that his family doctor has questioned why he asks so many questions about his health and treatment. PHQ-9 L ittle interest or pleasure in doing things N ot at all, F eeling down, depressed, or hopeless S everal days, T rouble falling or staying asleep, or sleeping too much N ot at all, F eeling tired or having little energy S everal days, P oor appetite or overeating M ore than half the days, F eeling bad about yourself or that you are a failure, or have let yourself or your family down N ot at all, T rouble concentrating on things, such as reading the newspaper or watching television N ot at all,?Moving or speaking so slowly that other people could have noticed; or the opposite, being so fidgety or restless that you have been moving around a lot more than usual N ot at all, T houghts that you would be better off or of hurting yourself in some way N ot at all, T otal Score 4 , I nterpretation M inimal Depression. I ntervention D epression Screening Findings N egative, S uicide Risk Assessment Performed . D epression Screening: JORDAN-7 (2018 Edition) F eeling nervous, anxious, or on edge?Not at all, N ot being able to stop or control worrying N ot at all, W orrying too much about different things S ever, T rouble relaxing N ot at all, B eing so restless that it is hard to sit still S ever, B ecoming easily annoyed or irritable?Several days, F eeling afraid as if something awful might happen N ot at all, T otal JORDAN-7 Score 3 , I f you checked any problems, how difficult have they made it for you to do your work, take care of things at home, or get along with other people? N ot difficult at all,?Interpretation of Total ( 0 to 4) No Anxiety. * ROS: P erformance Met: N ormal blood pressure reading documented, follow-up not required ( G8783). * Medical History: * Surgical History: * Hospitalization/Major Diagno stic Procedure: * Social History: M igrated Social History: M igrated Social History: Alcohol Intake: Occasional 04/27/2018,Tobacco Years: Never smoker 04/27/2018. * Medications: T akingVenlafaxine HCl ER 150 MG Capsule Extended Release 24 Hour 1 capsule with food Orally Once a day ALPRAZolam 1 MG Tablet 1 tablet Orally once a day As neededTopiramate 25 MG Tablet 1 to 2 tablet at bedtime Orally Once a day Vilazodone HCl 20 MG Tablet 1 tablet with food Orally Once a day Omeprazole 20 MG Capsule Delayed Release Oral Taking Venlafaxine HCl ER 150 MG Capsule Extended Release 24 Hour 1 capsule with food Orally Once a day Taking ALPRAZolam 1 MG Tablet 1 tablet Orally once a day As neededTaking Topiramate 25 MG Tablet 1 to 2 tablet at bedtime Orally Once a day Taking Vilazodone HCl 20 MG Tablet 1 tablet with food Orally Once a day Taking Omeprazole 20 MG Capsule Delayed Release Oral DiscontinuedVilazodone HCl 40 MG Tablet TAKE 1 TABLET BY MOUTH EVERY DAY Discontinued Vilazodone HCl 40 MG Tablet TAKE 1 TABLET BY MOUTH EVERY DAY UnknownRYALTRIS 665 MCG-25 MCG/SPRAY NASAL SPRAY , Notes to Pharmacist: *Reorder from [facility] for eRx and Interaction Alerts*Fluticasone Propionate Diskus 50 MCG/ACT Aerosol Powder Breath Activated Inhalation , Notes to Pharmacist: *Reorder from [facility] for eRx and Interaction Alerts*Ezetimibe 10 MG [...] Medication List reviewed and reconciled with the patientUnknowtano RYALTRIS 665 MCG-25 MCG/SPRAY NASAL SPRAY , Notes to Pharmacist: *Reorder from [facility] for eRx and Interaction Alerts*Unknown Fluticasone Propionate Diskus 50 MCG/ACT Aerosol Powder Breath Activated Inhalation , Notes to Pharmacist: *Reorder from [facility] for eRx and Interaction Alerts*Unknown Ezetimibe 10 [...] N .K.D.A.no[Allergies Verified] Objective: * Vitals: B P:116/74mm Hg, HR:92/min, Wt:204lbs, Wt-k.53 kg, Ht: 72.01 in, Ht-cm: 182.91 cm, BMI:27.66Index, Body Surface Area: 2.17. * Examination: G eneral Examination: M ental Status Examination: Patient reports reduced effectiveness of current medication dosage for tremors. Expressed concerns about nasal breathing issues and potential surgical intervention. Described mixed feelings about medication management for depression and anxiety. Reports poor appetite and recent weight gain. Demonstrates awareness of medical literature and treatment options. Vital Signs: review the notes for vitals Physical Examination: Reports decreased frequency of tremors on current medication dosage. Had one episode since last visit on 20 mg dose. Complaints of nasal obstruction, using nasal spray for relief. Reports a very, very serious problem inside nose. History of osteopenia, concerns about bone health influencing medication choices. Reported walking 2 miles daily except Sundays. Reported recent weight gain from 202 to 208 pounds over approximately 2 months. Diagnostic Test Results and Labs: Plans to undergo a full lab panel next week at [facility], including parathyroid hormone and calcium levels. Considering sleep study to evaluate for sleep apnea. Assessment: * Assessment: 1. M ajor depressive disorder, recurrent severe without psychotic features - F33.2 (Primary)? 2. G eneralized anxiety disorder - F41.1 3 . E ssential (primary) hypertension - I10 4 . B obinna mass index (BMI) 27.0-27.9, adult - Z68.27? Nasal Obstruction and Planne d Surgery - Assessment: Patient reports previous plans for nasal surgery with Dr. Hunt, who has since transferred. Currently using nasal spray for relief. Patient has a very, very serious problem inside their nose that needs to be addressed. - Plan: - Patient has an appointment with a new doctor on Monday. - Encourage patient to discuss sleep apnea testing with the new doctor, as it may be related to their nasal issues. Tremors and Medication Adjustment - Assessment: Patient reports reduced tremors since last visit. Currently on 20 mg of medication, down from 40 mg, experiencing fewer tremors. Patient notes that 20 mg doesn't seem as effective as 40 mg, but it's not serious and just takes the edge off things a little bit more. - Plan: - Continue current medication dosage (20 mg) to avoid worsening depression and anxiety. - Reassess in 2 months; if patient is still experiencing one episode per month, consider adjusting medication. Osteopenia and Dopamine Medication - Assessment: Patient stopped taking dopamine medication due to concerns about bone degradation. Gained 8 pounds during the 2-month break. Resumed taking the medication last week. - Plan: - Encourage patient to continue taking the medication, as studies from [facility] and [facility] do not confirm negative effects on bones. Exercise and Weight Management - Assessment: Patient received conflicting advice from doctors regarding walking and gym exercises. - Plan: - Encourage patient to mix up their routine, incorporating both walking and gym exercises as tolerated. - Patient plans to stop daily walking and start a varied routine at the gym. Topiramate Continuation - Plan: - Continue Topiramate as requested by patient. - Ensure refills are available at the pharmacy. Upcoming Lab Tests - Plan: - Patient has a scheduled appointment for a full panel at [facility]. - Add parathyroid hormone and calcium tests to the panel to monitor potential effects of dopamine medication on bone health. Follow-up - Plan: - Schedule a follow-up appointment in 2 months to reassess patient's progress and medication effectiveness. Plan: * Treatment: 2. G eneralized anxiety disorder Continue ALPRAZolam Tablet, 1 MG, 1 tablet, Orally, once a day As needed, 30 days, 30 Tablet, Refills 2. * Procedure Codes: G 8783 NORMAL BP READING DOC F/U NOT [id number] BEHAV ASSMT W/SCORE & DOCD/STAND INSTRUMENT * Follow Up: 2 Months * Billing Information: * Visit Code: 40016 OFFICE OUTPATIENT VISIT 25 MINUTES DETAILED HISTORY AND EXAM/MODERATE MEDICAL DECISION MAKING. * Procedure Codes: G8783 NORMAL BP READING DOC F/U NOT RQR. 67288 BEHAV ASSMT W/SCORE & DOCD/STAND INSTRUMENT. * TENDER PAPER MACHINE Sign off status: Completed true * Provider: Ximena GRIGSBY MD Date: 0 03/08/2024 Generated for Maximus morrissey/Raine/Marthasmitting on: 0 04/24/2024 09:17 AM BACK TENDER PAPER MACHINE History and Physical Notes * HPI (History of Present Illness) Category Sub-Category Detail Notes Category Not es Depression screening PHQ-9 Little inte rest or pleasure in doing things: Not at all Feeling down, depressed, or hopeless: Se veral days Trouble falling or staying asleep, or sl eeping too much: Not at all Feeling tired or having little energy: S everal days Poor appetite or overeating: More than h kyle the days Feeling bad about yourself o r that you are a failure, or have let yourself or your family down: Not at all Trouble concentrating on thi ngs, such as reading the newspaper or watching television: Not at all Moving or speaking so slowly that other people could have noticed; or the opposite, being so fidgety or restless that you have been moving around a lot more than usual: Not at all Thoughts that you would be b karri off or of hurting yourself in some way: Not at all Total Score: 4 Interpretation: Minimal Depression Intervention Depression Screening Findings: N egative Suicide Risk Assessment Performed: ____ Depression Screening JORDAN-7 (2018 Edition) Feelin g nervous, anxious, or on edge: Not at all Not being able to stop or control worryi ng: Not at all Worrying too much about different things : Several days Trouble relaxing: Not at all Being so restless that it is hard to sit still: Several days Becoming easily annoyed or irritable: Se veral days Feeling afraid as if something awful joyce ht happen: Not at all Total JORDAN-7 Score: 3 If you checked any problems, how difficult have they made it for you to do your work, take care of things at home, or get along with other people?: Not difficult at all Interpretation of Total: (0 to 4) No Anx iety Examination Category Sub-Category Detail Notes Category Not es General Examination Mental Status Examination: Patient reports reduced effectiveness of current medication dosage for tremors. Expressed concerns about nasal breathing issues and potential surgical intervention. Described mixed feelings about medication management for depression and anxiety. Reports poor appetite and recent weight gain. Demonstrates awareness of medical literature and treatment options. Vital Signs: review the notes for vitals Physical Examination: Reports decreased frequency of tremors on current medication dosage. Had one episode since last visit on 20 mg dose. Complaints of nasal obstruction, using nasal spray for relief. Reports a very, very serious problem inside nose. History of osteopenia, concerns about bone health influencing medication choices. Reported walking 2 miles daily except Sundays. Reported recent weight gain from 202 to 208 pounds over approximately 2 months. Diagnostic Test Results and Labs: Plans to undergo a full lab panel next week at [facility], including parathyroid hormone and calcium levels. Considering sleep study to evaluate for sleep apnea.
--- OUTSIDE RECORDS SUMMARY | 2024-04-24 09:18 | XMS_ITS | Encounter Summary ---
Author Organization [facility] Address [address] [address] Care Team Providers Care Self Rising Flour Mixer Name Role Phone Peter Greene MD Primary Care Provider [phone] Encounter Details Date Type Department Care Team (Late st Contact Info) Description 08/18/2022 Lab Requisition [facility] - DermPath Lab [address] [place] [address] Leeroy Lance MD [address] [place] [address] Social History Tobacco Use Types [...] Priority Date/Time Associated Diagnosis Comments DERMATOPATHOLOGY Routine 08/16/2022 12:0 0 AM CDT documented in this encounter Results * DERMATOPATHOLOGY (08/16/2022 12:00 AM CDT) Case Report Dermatopathology Report Case: [id number] Authorizing Provider: Leeroy Lance MD Collected: 08/16/2022 12:00 AM Ordering Location: [facility] DermPath Lab Received: 08/18/2022 07:05 AM Pathologist: Estefany Thao MD Specimens: A) - Skin, right jawline B) - Skin, right lateral breast 12:35 PM CDT DERMATOPATHOLOGY LABORATORY Final Diagnosis Specimen A. SKIN, right jawline: BASAL CELL CARCINOMA, NODULAR TYPE (C44.319) Specimen B. SKIN, right lateral breast: LICHEN PLANUS-LIKE KERATOSIS (BENIGN LICHENOID KERATOSIS) (L82.1) POST-INFLAMMATORY PIGMENT ALTERATION (L81.9) 12:35 PM T DERMATOPATHOLOGY LABORATORY Clinical History A-B: R/O BCC 12:35 PM CDT DERMATOPATHOLOGY LABORATORY Gross Description Specimen [...] measuring 10x4x1 mm. Jar 0. 12:35 PM CDT DERMATOPATHOLOGY LABORATORY Microscopic Description Specimen [...] around the superficial vascular plexus. 12:35 PM CDT DERMATOPATHOLOGY LABORATORY Disclaimer An external and internal positive and negative controls are appropriate for the histochemical, immunohistochemical and immunofluorescence stain(s) in this case (if any), except where stated explicitly. The performance characteristics of the stain(s) cited in this report were developed and its performance characteristic determined by the Dermatopathology Laboratory at [facility], directed by Dr. Elba Marquez. These tests need not be, and therefore are not, approved by the [place] Food and Drug Administration. The tests are used for clinical purposes. Billing Codes Specimen Charges Stain Charges 01972 64112 1 1 12:35 PM CDT DERMATOPATHOLOGY LABORATORY Embedded Images 12:35 PM CDT DERMATOPATHOLOGY LABORATORY Pathology/Cytology TISSUE SPECIMEN FROM SKIN / Unknown 08/16/2022 08/18/2022 7:05 AM CDT Miscellaneous samples (specimen) TISSUE SPECIMEN FROM SKIN / Unknown 08/16/2022 08/18/2022 7:05 AM CDT Leeroy Lance MD LAB - PATHOLOGY/CYTO LOGY ORDERABLES DERMATOPATHOLOGY LABORATORY [facility] - Department of Dermatology [address], [address] [phone] documented in this encounter Visit Diagnoses Not on filedocumented in this encounter Care Teams Self Rising Flour Mixer Relationship Specialty Start Date End Date Peter Greene MD [address] [place] [address] PCP - General 09/15/17 documented as of this encounter
[2024-04-24 20:53] LABS: Alanine Aminotransferase 45 U/L (6-50); Alkaline Phosphatase 77 U/L (38-126); Anion Gap 8 mmol/L (4-12); Aspartate Amino Transferase 66 U/L (17-59); Bilirubin,Total 0.5 mg/dL (0.2-1.3); Blood Urea Nitrogen 21 mg/dL (9-20); Calcium 8.9 mg/dL (8.4-10.2); Carbon Dioxide 28 mmol/L (22-30); Chloride 105 mmol/L (98-107); Estimated Glomerular Filt Rate 59; Glucose 68 mg/dL (65-110); Potassium 3.9 mmol/L (3.4-5.0); Sodium 141 mmol/L (137-145)
== END 2024-04-24 09:12 | disposition home or self-care (01) ==
LOC: ANHGOSHLAB 09:13
PROVIDERS: PCP Family Medicine; Visit Provider Family Medicine
DX: R74.01 Elevation of levels of liver transaminase levels (principal); I10 Essential (primary) hypertension
CPT/HCPCS: 36415; 80053

== ENCOUNTER 2024-06-21 09:19 | Outpatient (CLI) | payer MEDICARE, OTHER, SELFPAY ==
--- OUTSIDE RECORDS SUMMARY | 2024-06-21 09:27 | XMS_ITS | Encounter Summary ---
Author Organization [facility] Address [address] [place] [address] Care Team Providers Care Motor Runner Name Role Phone Peter Greene MD Primary Care Provider [phone] Encounter Details Date Type Department Care Team (Late st Contact Info) Description 08/18/2022 Lab Requisition [facility] - DermPath Lab [address] [place] [place] [address] Leeroy Lance MD [address] [place] [address] Social History Tobacco Use Types Packs/Day Years Used Date Smoking Tobacco: Never Assessed Sex and Gender Information Value Date Recorded Sex Assigned at Not on file 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 Gender Identity Not on file Sexual Orientation Not on file documented as of this encounter Plan of Treatment Not on file documented as of this encounter Procedures Procedure Name Priority Date/Time Associated Diagnosis Comments DERMATOPATHOLOGY Routine 08/16/2022 12:0 0 AM CDT documented in this encounter Results * DERMATOPATHOLOGY (08/16/2022 12:00 AM CDT) Case Report Dermatopathology Report Case: [id number] Authorizing Provider: Leeroy Lance MD Collected: 08/16/2022 12:00 AM Ordering Location: [facility] DermPath Lab Received: 08/18/2022 07:05 AM Pathologist: [...] measuring 10x4x1 mm. Jar 0. 12:35 PM T DERMATOPATHOLOGY LABORATORY Microscopic Description Specimen A. SKIN, [...] characteristic determined by the Dermatopathology Laboratory at [facility], directed by Dr. Elba Marquez. These tests need not be, and therefore are not, approved by the [place] Food and Drug Administration. The tests are used for clinical purposes. Billing Codes Specimen Charges Stain Charges 05295 14842 1 1 3 12:35 PM CDT DERMATOPATHOLOGY LABORATORY Embedded Images 12:35 PM T DERMATOPATHOLOGY LABORATORY Pathology/Cytology TISSUE SPECIMEN FROM SKIN / Unknown 08/16/2022 08/18/2022 7:05 AM CDT Miscellaneous samples (specimen) TISSUE SPECIMEN FROM SKIN / Unknown 08/16/2022 08/18/2022 7:05 AM CDT Leeroy Lance MD LAB - PATHOLOGY/CYTOLOGY ORD ERABLES Final Result DERMATOPATHOLOGY LABORATORY [facility] - Department of Dermatology [facility] Medicine [address] [place] [address], [address] [phone] documented in this encounter Visit Diagnoses Not on filedocumented in this encounter Care Teams Motor Runner Relationship Specialty Start Date End Date Peter Greene MD [address] [place] [address] PCP - General 09/15/17 documented as of this encounter
--- OUTSIDE RECORDS SUMMARY | 2024-06-21 09:27 | XMS_ITS | Referral Summary ---
Author Organization [facility] Address [address] [place] [address] Care Team Providers Care Precision Inspector Name Role Phone Tess Leyva MD Primary Care Provider Allergies Active Allergy Reactions Criticality Noted Date Comments Ljcjubfy-Gomlgmfovg-Ytzkrlpky Hives Medium 2018 Medications amLODIPine (NORVASC) 10 [...] Comments Blood Pressure 138/88 02/09/2024 11:38 AM HOD CARRIER Pulse 82 02/09/2024 11:38 AM HOD CARRIER Temperature - - Respiratory Rate - - Oxygen Saturation 96% 02/09/2024 11:38 AM HOD CARRIER Inhaled Oxygen Concentration - - Weight 92.1 kg (203 lb) 02/09/2024 11:38 AM HOD CARRIER Height 182.9 cm (6') 02/09/2024 11:38 AM HOD CARRIER Body Mass Index 27.53 02/09/2024 11:38 AM HOD CARRIER Plan of Treatment Not on file Insurance [employer] Member Subscriber Plan / Payer (Ef fective 2017-Present) Name:Darian Quinones Relation to Subscriber:Self Name:Darian Quinones Payer ID:[id number] Group ID:Not on file Type:COMMERCIAL Address: [facility] [address] [place], [place] [employer] Member Subscriber Plan / Payer ( fective 2017-Present) Name:Darian Quinones Relation to Subscriber:Self Name:Darian Quinones Payer ID:[id number] Group ID:Not on file Type:COMMERCIAL Address: [facility] [address] [place], [place] Care Teams Precision Inspector Relationship Specialty Start Date End Date Tess Leyva MD PCP - General Family Practice 07/16/21
--- OUTSIDE RECORDS SUMMARY | 2024-06-21 09:27 | XMS_ITS | Clinical Summary ---
Author Organization [facility] Address [address] [place] [address] Care Team Providers Care Health And Safety Tech Name Role Phone Peter Greene MD Primary Care Provider [phone] Source Comments [facility],non-owned Affiliates and Associated Physician Practices is amultiple site organization consisting of ambulatory clinics and hospital sitesin [place], [place], [place] and [place]. This disclosure is being madepursuant to the Care Everywhere program and may not contain all information available regarding this patient. Last updated 17.[facility] Allergies No known active allergies Immunizations Immunization Administration Dates Next Due INFLUENZA VACCINE, HIGH-DOSE , QUADR. 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 Gender Identity Not on file Sexual Orientation [...] VACCINE ( - 2023-2 5 season) 2023 DEPRESSION SCREENING 03/06/2024 INFLUENZA VACCINE (Season Ended) 2024 12/25/19 19 HEPATITIS B VACCINE Aged Out No longe r eligible based on patient's age to complete this topic HIB VACCINE Aged Out No longer eligi ble based on patient's age to complete this topic HPV VACCINE Aged Out No longer eligi ble based on patient's age to complete this topic MENINGOCOCCAL (Group B) VACC INE SHARED DECISION-MAKING Aged Out No longer eligibl e based on patient's age to complete this topic MENINGOCOCCAL GROUPS A/C/Y/W VACCINE Aged Out No longer eligible b ased on patient's age to complete this topic Insurance MEDICARE [employer] Care Teams Health And Safety Tech Relationship Specialty Start Date End Date Peter Greene MD [address] [place] [address] PCP - General 09/15/17
--- OUTSIDE RECORDS SUMMARY | 2024-06-21 09:27 | XMS_ITS | Clinical Summary ---
Author Organization [facility] Address [address] [place] [address] Care Team Providers Care Production Control Expediter Name Role Phone Tess Leyva MD Primary Care Provider Allergies Active Allergy Reactions Criticality Noted Date Comments Funeouzb-Lmppnkakdn-Nlxvgnxgz Hives Medium 2018 Medications amLODIPine (NORVASC) 10 [...] Gastroesophageal reflux disease without esophagi tis 02/04/2022 Surgical History Surgery Date Site/Laterality Comments TOTAL [...] Comments Blood Pressure 138/88 02/09/2024 11:38 AM LEAD FABRICATOR Pulse 82 02/09/2024 11:38 AM LEAD FABRICATOR Temperature - - Respiratory Rate - - Oxygen Saturation 96% 02/09/2024 11:38 AM LEAD FABRICATOR Inhaled Oxygen Concentration - - Weight 92.1 kg (203 lb) 02/09/2024 11:38 AM LEAD FABRICATOR Height 182.9 cm (6') 02/09/2024 11:38 AM LEAD FABRICATOR Body Mass Index 27.53 02/09/2024 11:38 AM LEAD FABRICATOR Plan of Treatment Health Maintenance Due Date Last Done Comments Depression Screening 1945 Fall Risk Assessment 1945 Hepatitis C Screening 1945 Hepatitis B Screening 1964 Zoster Vaccine (1 of 2) 1996 DTaP/Tdap/Td Vaccine (1 - Tdap) 08/24/2001 2 Well Visit 65+ 07/09/2011 Pneumococcal vaccine 65+ (2 of 2 - PPSV23) 01/11/2019 01/11/2018, 01/04/2018 Influenza Vaccine (#1) 2023 8, 12/24/2017, 12/15/2013 Insurance [employer] Care Teams Production Control Expediter Relationship Specialty Start Date End Date Tess Leyva MD PCP - General Family Practice 07/16/21
--- OUTSIDE RECORDS SUMMARY | 2024-06-21 09:27 | XMS_ITS | Patient Health Record ---
Author Organization [facility] Address [address] [facility] [address] [place] [address] Care Team Providers Care Web Development Manager Name Role Phone Tess Lyeva MD Primary Care Provider Unavailable Luis Rodriguez Unavailable [phone] Migration, Provider Unavailable Unavailable Allergies No Known Allergies Reason For Referral No Information Medications Medication SIG (Take, Route, Frequency, Duration) Notes Start Date End Date Status Tamsulosin HCl 0.4 MG Oral 05/08/2023 Unknown Azelastine HCl 137 MCG/SPRAY Nasal 05/08/2023 Unknown Triamcinolone Acetonide 0.1% External 05/08/2023 Unknown Topamax 50 MG Oral 05/08/2023 Unkno wn Fluorouracil 5 % External 05/08/2023 Un known ALPRAZolam 1 MG 1 tablet Orally once a day for 30 days 05/22/2024 Active Venlafaxine HCl ER 150 MG 1 capsule with food Orally Once a day for 90 days Luis Rodriguez 06/05/2024 01:29:17 PM CDT > Active Doxycycline Hyclate 100 MG Oral 05/08/2023 Unknown Vilazodone HCl 20 MG TAKE 1 TABLET BY MOUTH DAILY WITH FOOD for 90 Active RYALTRIS 665 MCG-25 MCG/SPRAY NASAL SPRAY *Reorder from [employer]weather for eRx and Interaction Alerts* 05/08/2023 Unknown ALPRAZolam 1 MG 1 tablet Orally once a day for 30 days As needed Luis Rodriguez 06/05/2024 01:29:31 PM CDT > Active Topiramate 25 MG 1 to 2 tablet at bedtime Orally Once a day for 30 days Active Omeprazole 20 MG Oral 05/08/2023 Ac tive Vilazodone HCl 20 MG 1 tablet with food Orally Once a day for 90 days Luis Rodriguez 06/05/2024 01:29:22 PM CDT > Active Omeprazole 40 MG Oral 05/08/2023 Un known Furosemide 20 MG Oral 05/08/2023 Un known Fluticasone Propionate Diskus 50 MCG/ACT Inhalation *Reorder from [employer] for eRx and Interaction Alerts* 05/08/2023 Unknown Ezetimibe 10 MG Oral 05/08/2023 Unk nown amLODIPine Besylate 10 MG Oral 05/08/2023 Unknown Venlafaxine HCl ER 75 MG 1 capsule every afternoon Orally Once a day for 90 days Luis Rodriguez 06/05/2024 01:29:27 PM CDT > 06/05/2024 Active Atorvastatin Calcium 40 MG Oral 05/08/2023 Unknown Finasteride 5 MG Oral 05/08/2023 Un known Trintellix 20 MG Oral 05/08/2023 Un known methylPREDNISolone 4 MG Oral 05/08/2023 Unknown Mupirocin 2% External 05/08/2023 Unknow n Immunizations Vaccine Route Administration Date Status Comme nts Influenza virus vaccine, quadrivalent (IIV4), split virus, 0.25 mL dosage Unknown 01/04/2018 Administered Influenza, high dose seasonal Unknown 12/24/2017 Admini stered Influenza, seasonal, injecta ble, preservative free, 3 yrs and above Unknown 12/15/2013 Administered Pneumococcal conjugate PCV 13 Unknown 01/04/2018 Admini stered Pneumococcal conjugate PCV 13 Unknown 01/11/2018 Admini stered Td (adult), adsorbed Unknown 08/23/2001 Administered Social History Tobacco Use: Social History Observation Description Date Details (start date - stop date) Never Smoker NA - NA Sex Assigned At : Social History Observation Description Sex Assigned At Male Tobacco Control (Standard) Question Answer Notes Tobacco use: Nonsmoker Problems Problem Type SNOMED Code ICD Code Onset Dates Problem Status W/U Status Risk Notes Problem Severe recurrent major depression without psychotic features (73461731) Major depressive disorder, 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 Problem Generalized anxiety disorder (72972529) Generalized anxiety disorder (F41.1) Active confirmed Problem Essential hypertension (72950081) Essential (primary) hypertension (I10) Active confirmed Vital Signs Heart Rate 92 /min 03/08/2024 Height-cm 182.91 cm 03/08/2024 Blood pressure diastolic 74 mm Hg 03/08/2024 Weight-kg 92.53 kg 03/08/2024 Height 72.01 in 03/08/2024 Blood pressure systolic 116 mm Hg 03/08/2024 Weight 204 lbs 03/08/2024 BMI 27.66 kg/m2 03/08/2024 Encounters Encounter Location Date Provider Diagnosis [address] [address] 08/10/2023 Luis Michael Major depressive disorder, recurrent severe without psychotic features F33.2 ; Generalized anxiety disorder F41.1 ; Essential (primary) hypertension I10 and Body mass index (BMI) 27.0-27.9, adult Z68.27 [facility] [address] [address] 01/11/2024 Luis Michael Major depressive disorder, recurrent severe without psychotic features F33.2 ; Generalized anxiety disorder F41.1 ; Essential (primary) hypertension I10 and Body mass index (BMI) 27.0-27.9, adult Z68.27 [facility] [place] [id number] [facility] [address] [address] 03/08/2024 Luis Michael Major depressive disorder, recurrent severe without psychotic features F33.2 ; Generalized anxiety disorder F41.1 ; Essential (primary) hypertension I10 and Body mass index (BMI) 27.0-27.9, adult Z68.27 [facility] [address] [address] 06/05/2024 Luis Michael Major depressive disorder, recurrent severe without psychotic features F33.2 ; Generalized anxiety disorder F41.1 ; Essential (primary) hypertension I10 ; Body mass index (BMI) 27.0-27.9, adult Z68.27 and Encounter for screening for depression Z13.31 [facility] [address] [address] 07/07/2023 Provider Migration [facility] [address] [address] 07/22/2023 Provider Migration [facility] [address] [facility] [address] [address] 07/23/2023 Provider Migration [address] [address] 08/10/2023 Luis Rodriguez Body mass index (BMI ) 27.0-27.9, adult Z68.27 [place] [address] [address] 09/02/2023 Luis Rodriguez Major depressive disorder, recurrent severe without psychotic features F33.2 [place] [address] [address] 10/20/2023 Luis Rodriguez Major depressive disorder, recurrent severe without psychotic features F33.2 Assessments Encounter Date Diagnosis (ICD Code) Assessment Notes Treatment Notes Treatment Clinical Notes Section Notes 08/10/2023 Body mass index (BMI) 27.0-27.9, adult (ICD-10 - Z68.27) 08/10/2023 Major depressive disorder, recurrent severe without psychotic features (ICD-10 - F33.2) Family Issues and Mood Stability - Assessment: Patient has experienced family issues, including his oldest son's remarriage, causing discord. However, the patient's mood has not been significantly affected. - Plan: - Continue monitoring mood and provide support as needed. Weight Loss - Assessment: Patient has lost 5 pounds and needs to lose another 8 pounds. Patient stopped taking Topamax (topiramate) 50 mg for weight loss due to feeling tired the next day until noon. - Plan: - Restart Topamax at 25 mg, one to two tablets at bedtime, with a 30-day prescription and refills as needed. - Monitor for side effects and effectiveness. Lower Back Pain - Assessment: Patient is attending physical therapy for lower back pain caused by worn-out discs. - Plan: - Continue physical therapy as prescribed and monitor progress. Medication Management - Assessment: Current medications: Alprazolam as needed, Wellbutrin 150 mg once a day, and Viibryd in the morning. Patient has stopped taking Trintellix. - Plan: - Refill Wellbutrin with a 90-day prescription. - Continue Alprazolam as needed, one tablet once a day, with a three-month prescription. - Monitor for any side effects or interactions. - Consider alternative weight loss medication, such as Contrave, in the future if needed. Adjust doses of Wellbutrin or Viibryd accordingly. Follow-up Appointment - Assessment: N/A - Plan: - Schedule a follow-up appointment in three months (November) to assess progress and medication management. 09/02/2023 Major depressive disorder, recurrent severe without psychotic features (ICD-10 - F33.2) Electronic Prior Authorization was requested for Topiramate 25 MG Tablet. Provider can order medication once approval received. 10/20/2023 Major depressive disorder, recurrent severe without psychotic features (ICD-10 - F33.2) 01/11/2024 Major depressive disorder, recurrent severe without [...] stress on overall well-being at follow-up appointment. 08/10/2023 Generalized anxiety disorder (ICD-10 - F41.1) Family Issues and Mood Stability - Assessment: Patient has experienced family issues, including his oldest son's remarriage, causing discord. However, the patient's mood has not been significantly affected. - Plan: - Continue monitoring mood and provide support as needed. Weight Loss - Assessment: Patient has lost 5 pounds and needs to lose another 8 pounds. Patient stopped taking Topamax (topiramate) 50 mg for weight loss due to feeling tired the next day until noon. - Plan: - Restart Topamax at 25 mg, one to two tablets at bedtime, with a 30-day prescription and refills as needed. - Monitor for side effects and effectiveness. Lower Back Pain - Assessment: Patient is attending physical therapy for lower back pain caused by worn-out discs. - Plan: - Continue physical therapy as prescribed and monitor progress. Medication Management - Assessment: Current medications: Alprazolam as needed, Wellbutrin 150 mg once a day, and Viibryd in the morning. Patient has stopped taking Trintellix. - Plan: - Refill Wellbutrin with a 90-day prescription. - Continue Alprazolam as needed, one tablet once a day, with a three-month prescription. - Monitor for any side effects or interactions. - Consider alternative weight loss medication, such as Contrave, in the future if needed. Adjust doses of Wellbutrin or Viibryd accordingly. Follow-up Appointment - Assessment: N/A - Plan: - Schedule a follow-up appointment in three months (November) to assess progress and medication management. 03/08/2024 Major depressive disorder, recurrent severe without [...] continue taking the medication, as studies from [facility] and [facility] do not confirm negative effects on bones. [...] scheduled appointment for a full panel at [facility]. - Add parathyroid hormone and calcium tests to the panel to monitor potential effects of dopamine medication on bone health. Follow-up - Plan: - Schedule a follow-up appointment in 2 months to reassess patient's progress and medication effectiveness. 06/05/2024 Major depressive disorder, recurrent severe without psychotic features (ICD-10 - F33.2) 06/05/2024 Generalized anxiety disorder (ICD-10 - F41.1) 03/08/2024 Generalized anxiety disorder (ICD-10 - F41.1) [...] continue taking the medication, as studies from [facility] and [facility] do not confirm negative effects on bones. [...] scheduled appointment for a full panel at [facility]. - Add parathyroid hormone and calcium tests to the panel to monitor potential effects of dopamine medication on bone health. Follow-up - Plan: - Schedule a follow-up appointment in 2 months to reassess patient's progress and medication effectiveness. 08/10/2023 Essential (primary) hypertension (ICD-10 - I10) Family Issues and Mood Stability - Assessment: Patient has experienced family issues, including his oldest son's remarriage, causing discord. However, the patient's mood has not been significantly affected. - Plan: - Continue monitoring mood and provide support as needed. Weight Loss - Assessment: Patient has lost 5 pounds and needs to lose another 8 pounds. Patient stopped taking Topamax (topiramate) 50 mg for weight loss due to feeling tired the next day until noon. - Plan: - Restart Topamax at 25 mg, one to two tablets at bedtime, with a 30-day prescription and refills as needed. - Monitor for side effects and effectiveness. Lower Back Pain - Assessment: Patient is attending physical therapy for lower back pain caused by worn-out discs. - Plan: - Continue physical therapy as prescribed and monitor progress. Medication Management - Assessment: Current medications: Alprazolam as needed, Wellbutrin 150 mg once a day, and Viibryd in the morning. Patient has stopped taking Trintellix. - Plan: - Refill Wellbutrin with a 90-day prescription. - Continue Alprazolam as needed, one tablet once a day, with a three-month prescription. - Monitor for any side effects or interactions. - Consider alternative weight loss medication, such as Contrave, in the future if needed. Adjust doses of Wellbutrin or Viibryd accordingly. Follow-up Appointment - Assessment: N/A - Plan: - Schedule a follow-up appointment in three months (November) to assess progress and medication management. 01/11/2024 Generalized anxiety disorder (ICD-10 - F41.1) [...] stress on overall well-being at follow-up appointment. 08/10/2023 Body mass index (BMI) 27.0-27.9, adult (ICD-10 - Z68.27) Family Issues and Mood Stability - Assessment: Patient has experienced family issues, including his oldest son's remarriage, causing discord. However, the patient's mood has not been significantly affected. - Plan: - Continue monitoring mood and provide support as needed. Weight Loss - Assessment: Patient has lost 5 pounds and needs to lose another 8 pounds. Patient stopped taking Topamax (topiramate) 50 mg for weight loss due to feeling tired the next day until noon. - Plan: - Restart Topamax at 25 mg, one to two tablets at bedtime, with a 30-day prescription and refills as needed. - Monitor for side effects and effectiveness. Lower Back Pain - Assessment: Patient is attending physical therapy for lower back pain caused by worn-out discs. - Plan: - Continue physical therapy as prescribed and monitor progress. Medication Management - Assessment: Current medications: Alprazolam as needed, Wellbutrin 150 mg once a day, and Viibryd in the morning. Patient has stopped taking Trintellix. - Plan: - Refill Wellbutrin with a 90-day prescription. - Continue Alprazolam as needed, one tablet once a day, with a three-month prescription. - Monitor for any side effects or interactions. - Consider alternative weight loss medication, such as Contrave, in the future if needed. Adjust doses of Wellbutrin or Viibryd accordingly. Follow-up Appointment - Assessment: N/A - Plan: - Schedule a follow-up appointment in three months (November) to assess progress and medication management. 03/08/2024 Essential (primary) hypertension (ICD-10 - I10) [...] continue taking the medication, as studies from [facility] and [facility] do not confirm negative effects on bones. [...] scheduled appointment for a full panel at [facility]. - Add parathyroid hormone and calcium tests to the panel to monitor potential effects of dopamine medication on bone health. Follow-up - Plan: - Schedule a follow-up appointment in 2 months to reassess patient's progress and medication effectiveness. 06/05/2024 Essential (primary) hypertension (ICD-10 - I10) 03/08/2024 Body mass index (BMI) 27.0-27.9, adult [...] continue taking the medication, as studies from [facility] and [facility] do not confirm negative effects on bones. [...] scheduled appointment for a full panel at [facility]. - Add parathyroid hormone and calcium tests to the panel to monitor potential effects of dopamine medication on bone health. Follow-up - Plan: - Schedule a follow-up appointment in 2 months to reassess patient's progress and medication effectiveness. 01/11/2024 Body mass index (BMI) 27.0-27.9, adult [...] stress on overall well-being at follow-up appointment. 06/05/2024 Body mass index (BMI) 27.0-27.9, adult (ICD-10 - Z68.27) 06/05/2024 Encounter for screening for depression (ICD-10 - Z13.31) 06/05/2024 Other Problem-Based Assessment and Plan Darian Lang, a male patient with a history of depression, presents with fatigue, weight gain, and decreased communication following the loss of his vxaano-sk-zso and caring for his elderly vdsajx-[id number]. Major Depressive Disorder, recurrent episode Assessment: Patient reports symptoms consistent with a depressive episode, including fatigue, hypersomnia, weight gain, irritability, and decreased communication. Symptoms began approximately 2 months ago, coinciding with increased caregiver stress for his elderly ykaqkz-zv-zxm and the recent loss of his gimejy-rg-gkk. Patient denies low mood but endorses anxiety and irritability. Recent bloodwork, including thyroid, vitamin D, and B12 levels, were within normal limits, ruling out common medical causes of fatigue. The patient's has noticed his decreased communication. The fatigue is primarily present in the morning after waking and does not occur when the patient is engaged in activities outside the home. Plan: - Increase venlafaxine to 225 mg daily (150 mg in the morning, 75 mg in the afternoon) - Discontinue vilazodone due to lack of perceived benefit - Continue Xanax as previously prescribed - Follow up in one month to reassess symptoms and medication efficacy - If symptoms do not improve, consider switching to bupropion (Wellbutrin) for its activating properties - Recommend primary care follow-up and possible sleep study if fatigue persists despite medication adjustment Weight gain Assessment: Patient reports gaining 25-30 pounds over the last 3 months, which he attributes to increased consumption of sweet and convenience foods. This weight gain has contributed to back pain. The patient has already initiated a diet and exercise regimen with a senior trainer at the gym to address this issue. Plan: - Continue current diet and exercise program - Encourage ongoing weight loss efforts to reach goal of losing an additional 14-15 pounds Fatigue and hypersomnia Assessment: Patient reports excessive daytime sleepiness, particularly in the morning after waking, for at least 2 months. He sleeps 7-8 hours at night but experiences sudden onset of sleepiness shortly after waking, often falling asleep for 5-90 minutes. This occurs primarily at home and does not affect his ability to drive or engage in activities outside the home. Recent bloodwork, including thyroid function tests, was normal. Patient uses a mouthpiece for sleep and reports improved sleep quality following nasal surgery. Plan: - Adjust antidepressant medication as noted above - If symptoms persist, refer to primary care for consideration of sleep study Disclaimer: This note has been transcribed using speech recognition software and serves as a reflection of the patient's visit. While efforts have been made to ensure accuracy, there may be errors, including bisque placer inaccuracies and misspellings of medication names. This document should not be considered a verbatim record, and any discrepancies should be verified with the provider. Plan Of Treatment Future Test Test Name Order Date PTH, INTACT AND CALCIUM (8837) 5 Next Appt Details Provider Name:Luis Rodriguez , 07/01/2024 02:15:00 PM, [address] [facility] [address], [facility] [address], [place], [address], Insurance Providers Payer Name Payer Address Payer Phone Subscriber Number Group Number Insured Name Patient Relationship to Insured Coverage Start Date Coverage End Date [place] [address] [facility] [place] [phone] [id number] DARIAN LANG Self - patient is the insured [employer] [place] [address] [place] [phone] [id number] DARIAN LANG Self - patient is the insured Medical (General) History Medical History History ICD Code Problems: Body mass index 25-29 - overwe ight Essential hypertension Generalized anxiety disorder Severe recurrent major depression withou t psychotic features , Surgical History Surgery Date(Month/Year) Open reduction of fracture of femur ([id number]) left side 08/28/2018 Any surgical history 08/29/2018 Other 1945
--- OUTSIDE RECORDS SUMMARY | 2024-06-21 09:27 | XMS_ITS | Clinical Summary ---
Author Organization [facility] Address [address] [place] [address] Phone Care Team Providers Care Foundry Helper Name Role Phone Tess Leyva MD Primary Care Provider Juliocesar Jenkins MD Unavailable [phone] Allergies Active Allergy Reactions Criticality Noted Date [...] Comments Blood Pressure 130/80 03/11/2022 11:22 AM AMERICANIZATION TEACHER Pulse 81 03/11/2022 11:22 AM AMERICANIZATION TEACHER Temperature 36.1 C (96.9 F) 03/11/2022 11:22 AM AMERICANIZATION TEACHER Respiratory Rate 18 03/11/2022 11:2 2 AM AMERICANIZATION TEACHER Oxygen Saturation 96% 03/11/2022 11: 22 AM AMERICANIZATION TEACHER Inhaled Oxygen Concentration - - Weight 90.6 kg (199 lb 11.2 oz) 023 11:22 AM AMERICANIZATION TEACHER Height 182.9 cm (6') 03/11/2022 11:22 AM AMERICANIZATION TEACHER Body Mass Index 27.08 03/11/2022 11:22 AM AMERICANIZATION TEACHER Plan of Treatment Health Maintenance Due Date Last Done Comments Hepatitis C Virus (HCV) Screening 1945 TdaP Immunization 1945 Zoster Immunization (1 of 2) 1996 Pneumococcal Immunization (50+ years) (2 of 2 - PPSV23) 01/11/2019 01/11/2018, 01/04/2018 Respiratory Syncytial Virus (RSV) Immunization (Adult) (1 - 1-dose 75+ series) 2021 Influenza Immunization (#1) 11/05/20230 03/2017, 12/24/2017, 12/24/2017, Additional history exists SARS-COV-2 Immunization ( season) 2023 DTaP/Tdap/Td Immunization Discontinued 08/23/2001 Hepatitis B Immunization Aged Out No longer eligible based on patient's age to complete this topic Meningococcal Immunization (ACWY) Aged Out No longer eligible based on patient's age to complete this topic Rotavirus Immunization Aged Out No lo nger eligible based on patient's age to complete this topic Insurance [employer] Care Teams Foundry Helper Relationship Specialty Start Date End Date Tess Leyva MD PCP - General Family Medicine 12/24/21 Juliocesar Jenkins MD [address] [place] [address] Consulting Physician Neurology 03/11/22
--- OUTSIDE RECORDS SUMMARY | 2024-06-21 09:27 | XMS_ITS | Continuity of Care Document ---
Author Organization [facility] Address [address] [place] [address] Phone Care Team Providers Care Crepe Machine Operator Name Role Phone [facility] Unavailable Unavail able Veena Rojas Unavailable Unavailable Procedures Procedure Date Vision Svcs Frames Purchases Progressive Lens, Polycarb Tax - Medical Eye Exam & Treatment Refraction Advance Directives Directive Yes / No Effective Date File Name No Information Encounters Encounter Description Practice Location Reason(s) For Visit Diagnoses Date Provider Providers Copied on Encounter [facility], [address] [place] [address] [address], [place], [place], [id number], [place] tel:[phone] [facility] No Information 3-200 9 [facility] . [address] [facility], [facility] [address], [place], [id number], [place]. tel:[phone] Referring Provider: Prashanth Gaspar, [address], [place], [address]. tel:[phone] bernard Provider: Veena Rojas, [address] [facility], [place], [address]. tel:[phone] [address] [facility], [address], [place], [place], [id number], [place] tel:[phone] [facility] No Information 5-200 9 Esteban OD Prashanth. [address] , [address], [place], [address], [place]. tel:[phone] Family History Family Member Type Diagnosis Age At Onset No Information Payers Payer name Insurance type Covered libertarian ID Authoriza tion(s) No Information Social History [...]
--- OUTSIDE RECORDS SUMMARY | 2024-06-21 09:27 | XMS_ITS | Encounter Summary ---
Author Organization [facility] Address [address] [place] [address] Care Team Providers Care Burial Agent Name Role Phone Peter Greene MD Primary Care Provider [phone] Encounter Details Date Type Department Care Team (Late st Contact Info) Description 06/26/2017 Lab Requisition [facility] Care DermPath Lab [address], [place] [address] Leeroy Lance MD [address] [place] [address] Social History Tobacco Use Types Packs/Day Years Used Date Smoking Tobacco: Never Assessed Sex and Gender Information Value Date Recorded Sex Assigned at Not on file Legal Sex Male 5:33 PM RELATIONS DIRECTOR Gender Identity Not on file Sexual Orientation Not on file documented as of this encounter Plan of Treatment Not on file documented as of this encounter Procedures Procedure Name Priority Date/Time Associated Diagnosis Comments DERMATOPATHOLOGY Routine 06/23/2017 12:0 0 AM CDT documented in this encounter Results * DERMATOPATHOLOGY (06/23/2017 12:00 AM CDT) Case Report Dermatopathology Report Case: [id number] Authorizing Provider: Leeroy Lance MD Collected: 06/23/2017 12:00 AM Pathologist: Fanine Marquez MD Received: 06/26/2017 12:10 PM Specimen: Skin, left medial cheek 8 2:26 PM CDT DERMATOPATHOLOGY LABORATORY Final Diagnosis Specimen A. 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 Check margins. 2:26 PM CDT DERMATOPATHOLOGY LABORATORY Gross Description Specimen A: Received is one formalin filled container labeled with the patient's name and designated left medial cheek. The specimen consists of a shave biopsy measuring [id number]. The margin is inked green. Jar 0. [...] the margin of the specimen. 2:26 PM T DERMATOPATHOLOGY LABORATORY Disclaimer An external and internal positive and negative controls are appropriate for the histochemical, immunohistochemical and immunofluorescence stain(s) in this case (if any), except where stated explicitly. The performance characteristics of the stain(s) cited in this report were developed and its performance characteristic determined by the Dermatopathology Laboratory at [facility]. These tests need not be, and therefore are not, approved by the [place] Food and Drug Administration. The tests are used for clinical purposes. Billing Codes Specimen Charges Stain Charges 04258 1 2:26 PM CDT DERMATOPATHOLOGY LABORATORY Embedded Images 2:26 PM CDT DERMATOPATHOLOGY LABORATORY Pathology/Cytolog y TISSUE SPECIMEN FROM SKIN / Unknown 06/23/2017 06/26/2017 12:10 PM CDT us Leeroy Lance MD LAB - PATHOLOGY/CYTOLOGY ORD ERABLES Final Result DERMATOPATHOLOGY LABORATORY [facility] - Department of Dermatology [address] [facility], 5th [place] [address], [facility] [phone] documented in this encounter Visit Diagnoses Not on filedocumented in this encounter Care Teams Burial Agent Relationship Specialty Start Date End Date Peter Greene MD [address] [place] [address] PCP - General 09/15/17 documented as of this encounter
[2024-06-21 13:35] LABS: Basophils Percent Auto 0.6 % (0.2-1.2); Eosinophils Absolute Auto 0.2 K/mm3 (0-0.3); Eosinophils Percent Auto 3.2 % (0-4.4); Hematocrit 45.2 % (42.0-52.0); Hemoglobin 14.4 g/dL (14.0-18.0); Immature Granulocyte Absolute 0.02 K/mm3 (0.00-0.031); Immature Granulocyte Percent A 0.4 % (0-0.5); Lymphocytes Absolute Auto 1.24 K/mm3 (0.9-3.2); Lymphocytes Percent Auto 23.1 % (18.3-44.2); Mean Corpuscular HGB Conc 31.9 g/dl (32-36); Mean Corpuscular Hemoglobin 29.6 pg (26-34); Mean Platelet Volume 9.6 fl (7.4-10.4); Monocytes Absolute Auto 0.5 K/mm3 (0.1-0.6); Monocytes Percent Auto 9.9 % (2.6-8.5); Neutrophils Absolute Auto 3.4 K/mm3 (1.3-6.7); Neutrophils Percent Auto 62.8 % (45.5-73.1); Platelet Count Result 272 k/mm3 (150-375); Red Blood Count 4.86 M/mm3 (4.6-6.20); Red Cell Distribution Width 12.7 % (11.5-14.5); White Blood Count 5.4 K/mm3 (4.5-10.0)
[2024-06-21 13:46] LABS: Alanine Aminotransferase 39 U/L (6-50); Albumin Level 4.2 g/dL (3.5-5.1); Alkaline Phosphatase 74 U/L (38-126); Anion Gap 8 mmol/L (4-12); Aspartate Amino Transferase 61 U/L (17-59); Bilirubin,Total 0.6 mg/dL (0.2-1.3); Blood Urea Nitrogen 20 mg/dL (9-20); Calcium 9.3 mg/dL (8.4-10.2); Carbon Dioxide 28 mmol/L (22-30); Chloride 103 mmol/L (98-107); Estimated Glomerular Filt Rate 56; Glucose 86 mg/dL (65-110); Potassium 3.8 mmol/L (3.4-5.0); Sodium 139 mmol/L (137-145)
[2024-06-21 14:04] LABS: Free T4 Free Thyroxine 1.01 ng/dL (0.78-2.19); Vitamin D 25 Hydroxy 43.1 ng/mL
[2024-06-21 14:46] LABS: Hemoglobin A1C 5.5 % (<5.7)
== END 2024-06-21 09:20 | disposition home or self-care (01) ==
LOC: ANHGOSHLAB 09:21
PROVIDERS: PCP Family Medicine; Visit Provider Nurse Practitioner Family
DX: E55.9 Vitamin D deficiency, unspecified (principal); R53.83 Other fatigue; R73.01 Impaired fasting glucose
CPT/HCPCS: 36415; 80053; 82306; 82607; 83036; 84439; 84443; 85025

== ENCOUNTER 2024-09-02 14:01 | Outpatient (CLI) | payer MEDICARE, OTHER, SELFPAY ==
--- NOTE | ~2024-09-02 | MR_ITS ---
EXAMINATION: MR lumbar spine wo con DATE: 09/02/2024 14:29 INDICATION: Lumbar intervertebral disc degeneration TECHNIQUE: Magnetic resonance imaging (MRI) of the lumbar spine was performed without intravenous con trast. Sequences included sagittal T2-weighted FSE, sagittal T2-weighted FS FSE, sagittal T1-weighted FSE, and axial T2-weighted FSE. COMPARISON: None FINDINGS: 4 degree retrolisthesis L5 on S1. Vertebral body heights are normal. There is marrow edema along the margins of a couple Schmorl's nodes at the left posterior aspect of the inferior endplate of L3 and a djacent superior endplate of L4. Fibrovascular degenerative endplate changes anteriorly along the sup erior endplate of L4 as well as minimally along the anterior inferior endplate of L5. Moderate to sev ere disc height loss at L5-S1, moderate disc height loss at L3-L4 and mild disc height loss at L2-L3 and L4-L5. Disc desiccation without significant disc height loss at T12 and L1-L2. The conus medulla ris terminates at L1-L2. There is normal signal in the caudal spinal cord. Paravertebral soft tissues are unremarkable. The following disc levels are specifically discussed: L1-L2: Disc is mildly bulging. There is mild bilateral facet joint osteoarthritis. There is no neural foraminal stenosis. There is minimal central canal stenosis. L2-L3: Disc is bulging with annular fissure. There is moderate left and severe right facet joint oste oarthritis. There is mild bilateral neural foraminal stenosis. There is mild central canal stenosis. L3-L4: Disc is bulging with annular fissure. There is moderate bilateral facet joint osteoarthritis. There is mild to moderate right and moderate left neural foraminal stenosis. There is mild central ca nal stenosis. L4-L5: Disc is bulging with annular fissure. There is altered left and moderate right facet joint ost eoarthritis. There is moderate left and mild to moderate right neural foraminal stenosis. There is mi ld central canal stenosis. L5-S1: Disc is bulging with annular fissure. There is mild to moderate left and moderate right facet joint osteoarthritis. There is moderate bilateral neural foraminal stenosis. There is no central shashi l stenosis. IMPRESSION: 1. Moderate to severe lumbar spondylosis. 2. Marrow edema along the margins of likely acute Schmorl's nodes along the endplates at both sides o f L3-L4. Reviewed, dictated and finalized at location B. IMPRESSION: 1. Moderate to severe lumbar spondylosis. 2. Marrow edema along the margins of likely acute Schmorl's nodes along the end plates at both sides of L3-L4.
--- OUTSIDE RECORDS SUMMARY | 2024-09-02 14:20 | XMS_ITS | Clinical Summary ---
Author Organization [facility] Address [address] [place] [address] Phone Care Team Providers Care Professor Of Engineering Name Role Phone Tess Leyva MD Primary Care Provider Juliocesar Jenkins MD Unavailable [phone] Allergies Active Allergy Reactions Criticality Noted Date [...] Comments Blood Pressure 130/80 03/11/2022 11:22 AM RABBET OPERATOR Pulse 81 03/11/2022 11:22 AM RABBET OPERATOR Temperature 36.1 C (96.9 F) 03/11/2022 11:22 AM RABBET OPERATOR Respiratory Rate 18 03/11/2022 11:2 2 AM RABBET OPERATOR Oxygen Saturation 96% 03/11/2022 11: 22 AM RABBET OPERATOR Inhaled Oxygen Concentration - - Weight 90.6 kg (199 lb 11.2 oz) 023 11:22 AM RABBET OPERATOR Height 182.9 cm (6') 03/11/2022 11:22 AM RABBET OPERATOR Body Mass Index 27.08 03/11/2022 11:22 AM RABBET OPERATOR Plan of Treatment Health Maintenance Due Date Last Done Comments Hepatitis C Virus (HCV) Screening 1945 TdaP Immunization 1945 Zoster Immunization (1 of 2) 1996 Pneumococcal Immunization (50+ years) (2 of 2 - PPSV23) 01/11/2019 01/11/2018, 01/04/2018 Respiratory Syncytial Virus (RSV) Immunization (Adult) (1 - 1-dose 75+ series) 2021 SARS-COV-2 Immunization ( season) 2023 Influenza Immunization (Season Ended) 2024 01/04/2018, 12/24/2017, 12/24/2017, Additional history exists DTaP/Tdap/Td Immunization Discontinued 08/23/2001 Hepatitis B Immunization Aged Out No longer eligible based on patient's age to complete this topic Human Papillomavirus (HPV) Immunization Aged Out No longer eligible based on patient's age to complete this topic Meningococcal Immunization (ACWY) Aged Out No longer eligible based on patient's age to complete this topic Rotavirus Immunization Aged Out No lo nger eligible based on patient's age to complete this topic Insurance [employer] Care Teams Professor Of Engineering Relationship Specialty Start Date End Date Tess Leyva MD PCP - General Family Medicine 12/24/21 Juliocesar Jenkins MD [address] [place] [id number] Consulting Physician Neurology 03/11/22
--- OUTSIDE RECORDS SUMMARY | 2024-09-02 14:20 | XMS_ITS | Referral Summary ---
Author Organization [facility] Medical Office Building [facility] Address [address] [place] [address] Care Team Providers Care Dairy Products Maker Name Role Phone Tess Leyva MD Primary Care Provider Allergies Active Allergy Reactions Criticality Noted Date Comments Jfwygxtu-Rauvmuqdof-Blcdnljks Hives Medium 2018 Medications amLODIPine (NORVASC) 10 [...] Comments Blood Pressure 138/88 02/09/2024 11:38 AM OBGYN NURSE Pulse 82 02/09/2024 11:38 AM OBGYN NURSE Temperature - - Respiratory Rate - - Oxygen Saturation 96% 02/09/2024 11:38 AM OBGYN NURSE Inhaled Oxygen Concentration - - Weight 92.1 kg (203 lb) 02/09/2024 11:38 AM OBGYN NURSE Height 182.9 cm (6') 02/09/2024 11:38 AM OBGYN NURSE Body Mass Index 27.53 02/09/2024 11:38 AM OBGYN NURSE Plan of Treatment Not on file Insurance [employer] Member Subscriber Plan / Payer (Ef fective 2017-Present) Name:Darian Quinones Relation to Subscriber:Self Name:Darian Quinones Payer ID:[id number] Group ID:Not on file Type:COMMERCIAL Address: [address] [place], [place] [employer] Member Subscriber Plan / Payer ( fective 2017-Present) Name:Darian Quinones Relation to Subscriber:Self Name:Darian Quinones Payer ID:[id number] Group ID:Not on file Type:COMMERCIAL Address: [facility] [address] [place], [place] Care Teams Dairy Products Maker Relationship Specialty Start Date End Date Tess Leyva MD PCP - General Family Practice 07/16/21
--- OUTSIDE RECORDS SUMMARY | 2024-09-02 14:20 | XMS_ITS | Patient Health Record ---
Author Organization [facility] Address [address] [facility] [address] [place] [address] Care Team Providers Care Tieing Machine Operator Name Role Phone Gordon FAJARDO, Tess Primary Care Provider Unavailable Luis Rodriguez Unavailable [phone] Allergies No Known Allergies Reason For Referral No Information Medications Medication SIG (Take, Route, Frequency, Duration) Notes Start Date End Date Status buPROPion HCl ER (XL) 300 MG 1 tablet in the morning Orally Once a day; Duration: 90 days Active buPROPion HCl ER (XL) 150 MG 1 tablet in the morning Orally Once a day; Duration: 7 days after one week increase to 300 mg 07/01/2024 Active Trintellix 20 MG Oral 05/08/2023 Un known Atorvastatin Calcium 40 MG Oral 05/08/2023 Unknown amLODIPine Besylate 10 MG Oral 05/08/2023 Unknown RYALTRIS 665 MCG-25 MCG/SPRAY NASAL SPRAY *Reorder from [employer] for eRx and Interaction Alerts* 05/08/2023 Unknown Mupirocin 2% External 05/08/2023 Unknow n methylPREDNISolone 4 MG Oral 05/08/2023 Unknown Ezetimibe 10 MG Oral 05/08/2023 Unk nown Topamax 50 MG Oral 05/08/2023 Unkno wn Fluticasone Propionate Diskus 50 MCG/ACT Inhalation *Reorder from [employer] for eRx and Interaction Alerts* 05/08/2023 Unknown Tamsulosin HCl 0.4 MG Oral 05/08/2023 Unknown Topiramate 25 MG 1 to 2 tablet at bedtime Orally Once a day; Duration: 30 days Active Furosemide 20 MG Oral 05/08/2023 Un known Azelastine HCl 137 MCG/SPRAY Nasal 05/08/2023 Unknown Omeprazole 40 MG Oral 05/08/2023 Un known Fluorouracil 5 % External 05/08/2023 Un known Venlafaxine HCl ER 75 MG 1 capsule in morning Oral Once a day; Duration: 90 days restarting venlafexine, stopping Vilaozodone 08/26/2024 Active Vilazodone HCl 20 MG TAKE 1 TABLET BY MOUTH DAILY WITH FOOD; Duration: 90 Active Finasteride 5 MG Oral 05/08/2023 Un known Doxycycline Hyclate 100 MG Oral 05/08/2023 Unknown ALPRAZolam 1 MG 1 tablet Orally once a day; Duration: 30 days As needed 08/26/2024 Active Omeprazole 20 MG Oral 05/08/2023 Ac tive Triamcinolone Acetonide 0.1% External 05/08/2023 Unknown Immunizations Vaccine Route Administration Date Status Comme nts Td (adult), adsorbed Unknown 08/23/2001 Administered Pneumococcal conjugate PCV 13 Unknown 01/04/2018 Admini stered Pneumococcal conjugate PCV 13 Unknown 01/11/2018 Admini stered Influenza, seasonal, injecta ble, preservative free, 3 yrs and above Unknown 12/15/2013 Administered Influenza, high dose seasonal Unknown 12/24/2017 Admini stered Influenza virus vaccine, quadrivalent (IIV4), split virus, 0.25 mL dosage Unknown 01/04/2018 Administered Social History Tobacco Use: Social History [...] Severe recurrent major depression without psychotic features (70771506) Major depressive disorder, 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 Problem Generalized anxiety disorder (67622565) Generalized anxiety disorder (F41.1) Active confirmed Problem Obstructive sleep apnea syndrome (disorder) (48742497) Obstructive sleep apnea (adult) (pediatric) (G47.33) Active confirmed Problem Essential hypertension (30008277) Essential (primary) hypertension (I10) Active confirmed Vital Signs Heart Rate 76 /min 08/26/2024 Height-cm 182.91 cm 08/26/2024 Blood pressure diastolic 73 mm Hg 08/26/2024 Weight-kg 89.81 kg 08/26/2024 Height 72.01 in 08/26/2024 Blood pressure systolic 118 mm Hg 08/26/2024 Weight 198.0 lbs 08/26/2024 BMI 26.84 kg/m2 08/26/2024 Encounters Encounter Location Date Provider Diagnosis [facility] [address] [address] 01/11/2024 Luis Michael Major depressive disorder, recurrent severe without psychotic features F33.2 ; Generalized anxiety disorder F41.1 ; Essential (primary) hypertension I10 and Body mass index (BMI) 27.0-27.9, adult Z68.27 [facility] [address] [address] 03/08/2024 Luis Michael Major depressive disorder, recurrent severe without psychotic features F33.2 ; Generalized anxiety disorder F41.1 ; Essential (primary) hypertension I10 and Body mass index (BMI) 27.0-27.9, adult Z68.27 [facility] [address] [address] 06/05/2024 Luis Michael Major depressive disorder, recurrent severe without psychotic features F33.2 ; Generalized anxiety disorder F41.1 ; Essential (primary) hypertension I10 ; Body mass index (BMI) 27.0-27.9, adult Z68.27 and Encounter for screening for depression Z13.31 [facility] [address] [address] 07/01/2024 Luis Michael Encounter for screen ing for depression Z13.31 ; Encounter for screening for cardiovascular disorders Z13.6 ; Major depressive disorder, recurrent severe without psychotic features F33.2 ; Generalized anxiety disorder F41.1 ; Essential (primary) hypertension I10 and Body mass index (BMI) 27.0-27.9, adult Z68.27 [facility] [address] [address] 08/01/2024 Luis Michael Major depressive disorder, recurrent severe without psychotic features F33.2 ; Generalized anxiety disorder F41.1 ; Essential (primary) hypertension I10 ; Encounter for screening for cardiovascular disorders Z13.6 and Encounter for screening for depression Z13.31 [facility] [employer] [address] [place] [address] 08/26/2024 Luis Rodriguez Encounter for screen ing for cardiovascular disorders Z13.6 ; Major depressive disorder, recurrent severe without psychotic features F33.2 ; Generalized anxiety disorder F41.1 ; Essential (primary) hypertension I10 ; Other fatigue R53.83 and Obstructive sleep apnea (adult) (pediatric) G47.33 [facility] [address] [place] [address] 10/20/2023 Luis Rodriguez Major depressive disorder, recurrent [...] stress on overall well-being at follow-up appointment. 03/08/2024 Major depressive disorder, recurrent severe without [...] continue taking the medication, as studies from [facility] and [facility] do not confirm negative effects on bones. [...] scheduled appointment for a full panel at [facility]. - Add parathyroid hormone and calcium tests to the panel to monitor potential effects of dopamine medication on bone health. Follow-up - Plan: - Schedule a follow-up appointment in 2 months to reassess patient's progress and medication effectiveness. 06/05/2024 Major depressive disorder, recurrent severe without psychotic features (ICD-10 - F33.2) 08/01/2024 Major depressive disorder, recurrent severe without psychotic features (ICD-10 - F33.2) Bupropion is more activating than venlafaxine. Patient reports better sleep initially but decreased effectiveness recently. Upcoming surgery may impact depression and anxiety. - Continue bupropion for another month. - Reassess medication needs after surgery. 07/01/2024 Encounter for screening for depression (ICD-10 - Z13.31) 08/26/2024 Encounter for screening for cardiovascular disorders (ICD-10 - Z13.6) 08/26/2024 Major depressive disorder, recurrent severe without psychotic features (ICD-10 - F33.2) Patient reports spontaneous crying and emotional triggers. - Consider medication adjustments for depression management. 08/26/2024 Generalized anxiety disorder (ICD-10 - F41.1) Patient reports increased anxiety in social situations. Consider increasing Vilazodone or switching to Duloxetine. - Consider increasing Vilazodone to 40 mg for anxiety management. - Discussed switching to Duloxetine for depression and anxiety. 08/01/2024 Generalized anxiety disorder (ICD-10 - F41.1) Patient reports feeling more even on venlafaxine. Bupropion may increase anxiety and nervousness. - Monitor anxiety levels while on bupropion. - Consider alternative medications if anxiety worsens. 07/01/2024 Encounter for screening for cardiovascular disorders (ICD-10 - Z13.6) 06/05/2024 Generalized anxiety disorder (ICD-10 - F41.1) [...] continue taking the medication, as studies from [facility] and [facility] do not confirm negative effects on bones. [...] scheduled appointment for a full panel at [facility]. - Add parathyroid hormone and calcium tests to the panel to monitor potential effects of dopamine medication on bone health. Follow-up - Plan: - Schedule a follow-up appointment in 2 months to reassess patient's progress and medication effectiveness. 01/11/2024 Generalized anxiety disorder (ICD-10 - F41.1) [...] stress on overall well-being at follow-up appointment. 03/08/2024 Essential (primary) hypertension (ICD-10 - I10) [...] continue taking the medication, as studies from [facility] and [facility] do not confirm negative effects on bones. [...] scheduled appointment for a full panel at [facility]. - Add parathyroid hormone and calcium tests to the panel to monitor potential effects of dopamine medication on bone health. Follow-up - Plan: - Schedule a follow-up appointment in 2 months to reassess patient's progress and medication effectiveness. 06/05/2024 Essential (primary) hypertension (ICD-10 - I10) 07/01/2024 Major depressive disorder, recurrent severe without psychotic features (ICD-10 - F33.2) 08/01/2024 Essential (primary) hypertension (ICD-10 - I10) 08/26/2024 Essential (primary) hypertension (ICD-10 - I10) Patient is taking medication for high blood pressure. - Continue current hypertension medication. 08/26/2024 Other fatigue (ICD-10 - R53.83) Patient reports ongoing fatigue despite slight improvement. - Monitor fatigue symptoms and consider sleep study for further evaluation. 08/01/2024 Encounter for screening for cardiovascular disorders (ICD-10 - Z13.6) 07/01/2024 Generalized anxiety disorder (ICD-10 - F41.1) 06/05/2024 Body mass index (BMI) 27.0-27.9, adult (ICD-10 - Z68.27) 03/08/2024 Body mass index (BMI) 27.0-27.9, adult [...] continue taking the medication, as studies from [facility] and [facility] do not confirm negative effects on bones. [...] scheduled appointment for a full panel at [facility]. - Add parathyroid hormone and calcium tests [...] on overall well-being at follow-up appointment. 06/05/2024 Encounter for screening for depression (ICD-10 - Z13.31) 07/01/2024 Essential (primary) hypertension (ICD-10 - I10) 08/01/2024 Encounter for screening for depression (ICD-10 - Z13.31) 08/26/2024 Obstructive sleep apnea (adult) (pediatric) (ICD-10 - G47.33) Patient interested in sleep study to evaluate sleep apnea. - Refer patient for sleep study to assess potential sleep apnea. 07/01/2024 Body mass index (BMI) 27.0-27.9, adult (ICD-10 - Z68.27) 06/05/2024 Other Problem-Based Assessment and Plan Darian Lang, a male patient with a history of depression, presents with fatigue, weight gain, and decreased communication following the loss of his izqcvj-rs-jsn and caring for his elderly uzdaoc-ca-rjz. Major Depressive Disorder, recurrent episode Assessment: Patient reports symptoms consistent with a depressive episode, including fatigue, hypersomnia, weight gain, irritability, and decreased communication. Symptoms began approximately 2 months ago, coinciding with increased caregiver stress for his elderly [id number] and the recent loss of his wkpamg-xx-jem. Patient denies low mood but endorses anxiety [...] a diet and exercise regimen with a monkey trainer at the gym to address this [...] ensure accuracy, there may be errors, including mechanical maintenance instructor inaccuracies and misspellings of medication names. This document should not be considered a verbatim record, and any discrepancies should be verified with the provider. 07/01/2024 Other Darian Stacie, male patient, presents with persistent fatigue, morning anxiety, and possible depression, reporting difficulty staying awake and lack of interest in daily activities. Fatigue and Excessive Daytime Sleepiness Assessment: Patient reports persistent fatigue and excessive daytime sleepiness, despite normal blood test results from recent evaluations. Symptoms include difficulty staying awake during the day, sleeping late on weekends, and spending extended periods lying down. The fatigue appears to be significantly impacting daily functioning and quality of life. Differential diagnoses include depression, anxiety disorder, sleep apnea (potentially exacerbated by nasal congestion), and medication side effects. Recent medication changes and addition of a vaccine have not improved symptoms. Plan: - Decrease venlafaxine ER: - 150 mg for 1 week - 75 mg for 1 week - Then discontinue - Start bupropion XL: - 150 mg for 1 week - Increase to 300 mg after 1 week - Continue vilazodone at current dose - Follow up after medication changes to assess efficacy and side effects Anxiety (Morning Fear) Assessment: Patient reports waking up every morning with a feeling of fear or fright, which typically resolves within 5-10 minutes. This symptom may be related to an underlying anxiety disorder or could be a side effect of current medications. The brief duration of the morning anxiety suggests it may be distinct from the persistent fatigue experienced throughout the day. Plan: - Monitor anxiety symptoms during medication transition - Assess impact of bupropion XL on morning anxiety at follow-up Possible Depression Assessment: Patient expresses uncertainty about whether he is experiencing depression or anxiety. Symptoms suggestive of depression include lack of communication, diminished interest in daily activities, and excessive sleep. The decision to switch to bupropion XL, an antidepressant with activating properties, suggests a clinical suspicion of depression contributing to the patient's symptoms. Plan: - Initiate bupropion XL as outlined above - Educate patient on expected effects of bupropion XL, including potential improvement in motivation and energy levels - Monitor for changes in mood and energy levels at follow-up Nasal Congestion/Obstr uction Assessment: Patient reports ongoing nasal problems requiring medication to maintain nasal patency. This condition may be contributing to sleep disturbances and fatigue, possibly through inducing apneic episodes. Surgical intervention is scheduled for early August to address the nasal issues. Plan: - Continue current nasal medication as prescribed - Proceed with scheduled nasal surgery on August 05 or - Reassess sleep quality and fatigue levels post-surgery Disclaimer: This note has been transcribed using speech recognition software and serves as a reflection of the patient's visit. While efforts have been made to ensure accuracy, there may be errors, including mechanical maintenance instructor inaccuracies and misspellings of medication names. This document should not be considered a verbatim record, and any discrepancies should be verified with the provider. Plan Of Treatment Future Test Test Name Order Date PTH, INTACT AND CALCIUM (8837) 5 Next Appt Details Provider Name:Luis Rodriguez , 09/25/2024 03:00:00 PM, [address], [address], [place], [address], Insurance Providers Payer Name Payer Address Payer Phone Subscriber Number Group Number Insured Name Patient Relationship to Insured Coverage Start Date Coverage End Date [place] [address] [place] [id number] TAVARES LANGT Self - patient is the insured [employer] [address] [place] [phone] [id number] DARIAN LANG Self - patient is the insured Medical (General) History Medical History History ICD Code Problems: Body mass index 25-29 - overwe ight Essential hypertension Generalized anxiety disorder Severe recurrent major depression withou t psychotic features , Surgical History Surgery Date(Month/Year) Open reduction of fracture of femur ([id number]) left side 08/28/2018 Any surgical history 08/29/2018 Other 1945
--- OUTSIDE RECORDS SUMMARY | 2024-09-02 14:20 | XMS_ITS | Encounter Summary ---
Author Organization [facility] Address [address] [place] [address] Care Team Providers Care Nicker And Breaker Name Role Phone Peter Greene MD Primary Care Provider [phone] Encounter Details Date Type Department Care Team (Late st Contact Info) Description 08/18/2022 Lab Requisition [facility] - DermPath Lab [address] [facility], [place] [address] Leeroy Lance MD [address] [place] [address] Social History Tobacco Use Types Packs/Day Years Used Date Smoking Tobacco: Never Assessed Sex and Gender Information Value Date Recorded Sex Assigned at Not on file 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 Gender Identity Not on file Sexual Orientation Not on file documented as of this encounter Plan of Treatment Not on file documented as of this encounter Procedures Procedure Name Priority Date/Time Associated Diagnosis Comments DERMATOPATHOLOGY Routine 08/16/2022 12:0 0 AM CDT documented in this encounter Results * DERMATOPATHOLOGY (08/16/2022 12:00 AM CDT) Case Report Dermatopathology Report Case: [id number] Authorizing Provider: Leeroy Lance MD Collected: 08/16/2022 12:00 AM Ordering Location: [facility] DermPath Lab Received: 08/18/2022 07:05 AM Pathologist: Estefany Thao MD Specimens: A) - Skin, right jawline B) - Skin, right lateral breast 12:35 PM CDT DERMATOPATHOLOGY LABORATORY Final Diagnosis Specimen A. SKIN, right jawline: BASAL CELL CARCINOMA, NODULAR TYPE (C44.319) Specimen B. SKIN, right lateral breast: LICHEN PLANUS-LIKE KERATOSIS (BENIGN LICHENOID KERATOSIS) (L82.1) POST-INFLAMMATORY PIGMENT ALTERATION (L81.9) 3 12:35 PM CDT DERMATOPATHOLOGY LABORATORY at 1235 CDT Clinical History A-B: R/O BCC 12:35 PM [...] within melanophages around the superficial vascular plexus. 3 12:35 PM CDT DERMATOPATHOLOGY LABORATORY Disclaimer An external and internal positive and negative controls are appropriate for the histochemical, immunohistochemical and immunofluorescence stain(s) in this case (if any), except where stated explicitly. The performance characteristics of the stain(s) cited in this report were developed and its performance characteristic determined by the Dermatopathology Laboratory at [facility], directed by Dr. Elba Marquez. These tests need not be, and therefore are not, approved by the [place] Food and Drug Administration. The tests are used for clinical purposes. Billing Codes Specimen Charges Stain Charges 74301 85957 1 1 3 12:35 PM CDT DERMATOPATHOLOGY LABORATORY Embedded Images 12:35 PM CDT DERMATOPATHOLOGY LABORATORY Pathology/Cytology TISSUE SPECIMEN FROM SKIN / Unknown 08/16/2022 08/18/2022 7:05 AM CDT Miscellaneous samples (specimen) TISSUE SPECIMEN FROM SKIN / Unknown 08/16/2022 08/18/2022 7:05 AM CDT Leeroy Lance MD LAB - PATHOLOGY/CYTOLOGY ORD ERABLES Final Result DERMATOPATHOLOGY LABORATORY [facility] - Department of Dermatology [facility] Medicine [address] [place] [address], [address]rd Floor [address] [phone] documented in this encounter Visit Diagnoses Not on filedocumented in this encounter Care Teams Nicker And Breaker Relationship Specialty Start Date End Date Peter Greene MD [address] [place] [address] PCP - General 09/15/17 documented as of this encounter
--- OUTSIDE RECORDS SUMMARY | 2024-09-02 14:20 | XMS_ITS | Continuity of Care Document ---
Author Organization [facility] Address [address] [place] [address] Phone Care Team Providers Care Rug Renovator Name Role Phone [facility] Unavailable Unavail able Veena Rojas Unavailable Unavailable Procedures Procedure Date Vision Svcs Frames Purchases Progressive Lens, Polycarb Tax - Medical Eye Exam & Treatment Refraction Advance Directives Directive Yes / No Effective Date File Name No Information Encounters Encounter Description Practice Location Reason(s) For Visit Diagnoses Date Provider Providers Copied on Encounter [facility], [address] [place] [address] [address], [place], [place], [id number], [place] tel:[phone] [facility] No Information 3-200 9 [facility] . [address] [facility], [facility] [address], [place], [id number], [place]. tel:[phone] Referring Provider: Prashanth Gaspar, [address], [place], [address]. tel:[phone] bernard Provider: Veena Rojas, [address] [facility], [place], [address]. tel:[phone] 2638 [facility], [address], [place], [place], [id number], [place] tel:[phone] [facility] No Information 5-200 9 Esteban OD Prashanth. [address], [place], [address], [place]. tel:[phone] Family History Family Member Type Diagnosis Age At Onset No Information Payers Payer name Insurance type Covered democrat ID Authoriza tion(s) No Information Social History [...]
--- OUTSIDE RECORDS SUMMARY | 2024-09-02 14:20 | XMS_ITS | Clinical Summary ---
Author Organization [facility] Address [address] [place] [address] Care Team Providers Care Tank Cleaning Supervisor Name Role Phone Peter Greene MD Primary Care Provider [phone] Source Comments [facility],non-owned Affiliates and Associated Physician Practices is amultiple site organization consisting of ambulatory clinics and hospital sitesin [place], [place] and [place]. This disclosure is being madepursuant to the Care Everywhere program and may not contain all information available regarding this patient. Last updated 17.[facility] Allergies No known active allergies Immunizations Immunization Administration Dates Next Due INFLUENZA VACCINE, HIGH-DOSE , QUADR. 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
--- OUTSIDE RECORDS SUMMARY | 2024-09-02 14:20 | XMS_ITS | Clinical Summary ---
Author Organization [facility] Address [address] [place] [address] Care Team Providers Care Automobile Body Worker Name Role Phone Tess Leyva MD Primary Care Provider Allergies Active Allergy Reactions Criticality Noted Date Comments Iugrrdbq-Yzrvrbreid-Kqthnwkpr Hives Medium 2018 Medications amLODIPine (NORVASC) 10 [...] Comments Blood Pressure 138/88 02/09/2024 11:38 AM BRANCH EXAMINER Pulse 82 02/09/2024 11:38 AM BRANCH EXAMINER Temperature - - Respiratory Rate - - Oxygen Saturation 96% 02/09/2024 11:38 AM BRANCH EXAMINER Inhaled Oxygen Concentration - - Weight 92.1 kg (203 lb) 02/09/2024 11:38 AM BRANCH EXAMINER Height 182.9 cm (6') 02/09/2024 11:38 AM BRANCH EXAMINER Body Mass Index 27.53 02/09/2024 11:38 AM BRANCH EXAMINER Plan of Treatment Health Maintenance Due Date Last Done Comments Depression Screening 1945 Fall Risk Assessment 1945 Hepatitis C Screening 1945 Hepatitis B Screening 1964 Zoster Vaccine (1 of 2) 1996 DTaP/Tdap/Td Vaccine (1 - Tdap) 08/24/2001 2 Well Visit 65+ 07/09/2011 Pneumococcal vaccine 65+ (2 of 2 - PPSV23) 01/11/2019 01/11/2018, 01/04/2018 Influenza Vaccine (Season Ended) 2024 01/04/2018, 12/24/2017, 12/15/2013 Insurance [employer] [place] [employer] Care Teams Automobile Body Worker Relationship Specialty Start Date End Date Tess Leyva MD PCP - General Family Practice 07/16/21
--- OUTSIDE RECORDS SUMMARY | 2024-09-02 14:20 | XMS_ITS | Encounter Summary ---
Author Organization [facility] Address [address] [place] [address] Care Team Providers Care Shopper Insights Manager Name Role Phone Peter Greene MD Primary Care Provider [phone] Encounter Details Date Type Department Care Team (Late st Contact Info) Description 06/26/2017 Lab Requisition 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 Gender Identity Not on file Sexual Orientation Not on file documented as of this encounter Plan of Treatment Not on file documented as of this encounter Procedures Procedure Name Priority Date/Time Associated Diagnosis Comments DERMATOPATHOLOGY Routine 06/23/2017 12:0 0 AM CDT documented in this encounter Results * DERMATOPATHOLOGY (06/23/2017 12:00 AM CDT) Case Report Dermatopathology Report Case: [id number] Authorizing Provider: Leeroy Lance MD Collected: 06/23/2017 12:00 AM Pathologist: Fannie Marquez MD Received: 06/26/2017 12:10 PM Specimen: Skin, left medial cheek 8 2:26 PM CDT DERMATOPATHOLOGY LABORATORY Final Diagnosis Specimen A. 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 Check margins. 2:26 PM CDT DERMATOPATHOLOGY LABORATORY Gross Description Specimen A: Received is one formalin filled container labeled with the patient's name and designated left medial cheek. The specimen consists of a shave biopsy measuring [id number]. The margin is inked green. Jar 0. [...] determined by the Dermatopathology Laboratory at [facility]. These tests need not be, and therefore are not, approved by the [place] Food and Drug Administration. The tests are used for clinical purposes. Billing Codes Specimen Charges Stain Charges 02501 1 2:26 PM CDT DERMATOPATHOLOGY LABORATORY Embedded Images 2:26 PM CDT DERMATOPATHOLOGY LABORATORY Pathology/Cytolog y TISSUE SPECIMEN FROM SKIN / Unknown 06/23/2017 06/26/2017 12:10 PM CDT us Leeory Lance MD LAB - PATHOLOGY/CYTOLOGY ORD ERABLES Final Result DERMATOPATHOLOGY LABORATORY [facility] - Department of Dermatology [address] [facility], [address] [place] [address], [place] [phone] documented in this encounter Visit Diagnoses Not on filedocumented in this encounter Care Teams Shopper Insights Manager Relationship Specialty Start Date End Date Peter Greene MD [address] [place] [address] PCP - General 09/15/17 documented as of this encounter
--- OUTSIDE RECORDS SUMMARY | 2024-09-02 14:21 | XMS_ITS ---
Author Organization [facility] Address [address] [place] [address] Care Team Providers Care Remediation Bioanalytics Consultant Name Role Phone Gordon FAJARDO, Tess Primary Care Provider Unavailable Luis Grigsby Unavailable [phone] REASON FOR VISIT 1 month f/u Social History Sex Assigned At : Social History Observation Description Sex Assigned At Male Encounters Encounter Location Date Provider Diagnosis [facility] [address] [place] [address] 08/29/2024 Luis Grigsby Plan Of Treatment Next Appt Details Provider Name:Luis Grigsby , 09/25/2024 03:00:00 PM, [address], [facility] [address], [place], [address], Progress Notes * RICKEY, NINI DDOB:1945 (79 yo M)Acc No.[id number]:08/29/2024 Patient: NINI COOK Provider: Ximena GRIGSBY MD :1945 A ge:79 Y S ex:Male Date:08/29/2024 Phone: Address:[address], [facility] Pcp:Tess Gupta Subjective: * Chief Complaints: * 1 . 1 month f/u. 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, recurrent severe without psychotic features Modified On:08/10/2023W/U Status:confirmed F41.1 Generalized anxiety disorder Modified On:08/10/2023W/U Status:confirmed I10 Essential (primary) hypertension Modified On:08/10/2023W/U Status:confirmed G47.33 Obstructive sleep ap soniya (adult) (pediatric) Modified On:08/26/2024W/U Status:confirmed * Medical History: Objective: * Vitals: Assessment: Plan: * Treatment: * Billing Information: * Visit Code: * Procedure Codes: * Electronic signature of Hilary Grigsby MD on 09/02/2024 at 02:20 PM CDT Sign off status: Pending * Provider: Ximena GRIGSBY MD Date: 08/29/2024 Generated for Maximus morrissey/Raine/Marthasmitting on: 09/02/2024 02:20 PM CDT
== END 2024-09-02 14:02 | disposition home or self-care (01) ==
PROVIDERS: PCP Family Medicine; Visit Provider Nurse Practitioner Family
DX: M47.816 Spondylosis without myelopathy or radiculopathy, lumbar region (principal); R60.9 Edema, unspecified; M51.360 Other intervertebral disc degeneration, lumbar region with discogenic back pain only
CPT/HCPCS: 72148

== ENCOUNTER 2025-02-05 08:06 | Outpatient (CLI) | payer MEDICARE, OTHER, SELFPAY ==
--- OUTSIDE RECORDS SUMMARY | 2025-02-05 08:15 | XMS_ITS | Clinical Summary ---
Author Organization [facility] Address [address] [place] [address] Phone Care Team Providers Care Cargo Service Agent Name Role Phone Tess Leyva MD Primary Care Provider Juliocesar Jenkins MD Unavailable [phone] Allergies Active Allergy Reactions Criticality Noted Date [...] Comments Blood Pressure 130/80 03/11/2022 11:22 AM DIE REPAIR Pulse 81 03/11/2022 11:22 AM DIE REPAIR Temperature 36.1 C (96.9 F) 03/11/2022 11:22 AM DIE REPAIR Respiratory Rate 18 03/11/2022 11:2 2 AM DIE REPAIR Oxygen Saturation 96% 03/11/2022 11: 22 AM DIE REPAIR Inhaled Oxygen Concentration - - Weight 90.6 kg (199 lb 11.2 oz) 023 11:22 AM DIE REPAIR Height 182.9 cm (6') 03/11/2022 11:22 AM DIE REPAIR Body Mass Index 27.08 03/11/2022 11:22 AM DIE REPAIR Plan of Treatment Health Maintenance Due Date Last Done Comments Hepatitis C Virus (HCV) Screening 1945 TdaP Immunization 1945 Zoster Immunization (1 of 2) 1996 Medicare Initial AWV [id number] 10/04/2017 Pneumococcal Immunization (50+ years) (2 of 2 - PCV20 or PCV21) 01/11/2019 01/11/2018, 01/04/2018 Respiratory Syncytial Virus (RSV) Immunization (Adult) (1 - 1-dose 75+ series) 2021 Influenza Immunization (#1) 11/04/202403/2017, 12/24/2017, 12/24/2017, Additional history exists SARS-COV-2 Immunization ( season) 2024 DTaP/Tdap/Td Immunization Discontinued 08/23/2001 Hepatitis B Immunization [...] topic Insurance [employer] Care Teams Cargo Service Agent Relationship Specialty Start Date End Date Tess Leyva MD PCP - General Family Medicine 12/24/21 Juliocesar Jenkins MD [address] [place] [id number] Consulting Physician Neurology 03/11/22
--- OUTSIDE RECORDS SUMMARY | 2025-02-05 08:15 | XMS_ITS | Encounter Summary ---
Author Organization [facility] Address [address] [facility] [place] [address] Care Team Providers Care General Manager Food Name Role Phone Peter Greene MD Primary Care Provider [phone] Encounter Details Date Type Department Care Team (Late st Contact Info) Description 08/18/2022 Lab Requisition [facility] - DermPath Lab [address] [facility], [place] [address] Leeroy Lance MD [address] [place] [address] Social History Tobacco Use Types Packs/Day Years Used Date Smoking Tobacco: Never Assessed Sex and Gender Information Value Date Recorded Sex Assigned at Not on file 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..] characteristic determined by the Dermatopathology Laboratory at [facility], directed by Dr. Elba Marquez. These tests need not be, and therefore are not, approved by the [place] Food and Drug Administration. The tests are used for clinical purposes. Billing Codes Specimen Charges Stain Charges 70444 47789 1 1 3 12:35 PM CDT DERMATOPATHOLOGY LABORATORY Embedded Images 12:35 PM CDT DERMATOPATHOLOGY LABORATORY Pathology/Cytology TISSUE SPECIMEN FROM SKIN / Unknown 08/16/2022 08/18/2022 7:05 AM CDT Miscellaneous samples (specimen) TISSUE SPECIMEN FROM SKIN / Unknown 08/16/2022 08/18/2022 7:05 AM CDT Leeroy Lance MD LAB - PATHOLOGY/CYTOLOGY ORD ERABLES Final Result DERMATOPATHOLOGY LABORATORY [facility] - Department of Dermatology [facility] Medicine [address] [place] [address], [address] [phone] documented in this encounter Visit Diagnoses Not on filedocumented in this encounter Care Teams General Manager Food Relationship Specialty Start Date End Date Peter Greene MD [address] [place] [address] PCP - General 09/15/17 documented as of this encounter
--- OUTSIDE RECORDS SUMMARY | 2025-02-05 08:15 | XMS_ITS | Clinical Summary ---
Author Organization [facility] Address [address] [place] [address] Care Team Providers Care Solution Design Engineer Name Role Phone Peter Greene MD Primary Care Provider [phone] Source Comments [facility],non-owned Affiliates and Associated Physician Practices is amultiple site organization consisting of ambulatory clinics and hospital sitesin [place], [place], [place] and [place]. This disclosure is being madepursuant to the Care Everywhere program and may not contain all information available regarding this patient. Last updated 17.[facility] Allergies No known active allergies Immunizations Immunization Administration Dates Next Due INFLUENZA VACCINE, HIGH-DOSE , QUADR. 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
--- OUTSIDE RECORDS SUMMARY | 2025-02-05 08:15 | XMS_ITS | Clinical Summary ---
Author Organization [facility] Address [address] [place] [address] Care Team Providers Care Cost Control Analyst Name Role Phone Tess Leyva MD Primary Care Provider Allergies Active Allergy Reactions Criticality Noted Date Comments Omjiwnsd-Yggpqirvxo-Uhabcpqhn Hives Medium 2018 Medications amLODIPine (NORVASC) 10 [...] Encounters Date Type Department Care Team Description 12/16/2024 Orders Only [facility] Medicine Pathology Outreach [address] [place] [address] Unknown, Notinfile from Last 3 Months Surgical History Surgery [...] Comments Blood Pressure 138/88 02/09/2024 11:38 AM [employer]HOSTESS Pulse 82 02/09/2024 11:38 AM [employer] HOST[employer]HOSTESS Temperature - - Respiratory Rate - - Oxygen Saturation 96% 02/09/2024 11:38 AM [employer] HOST/HOSTESS Inhaled Oxygen Concentration - - Weight 92.1 kg (203 lb) 02/09/2024 11:38 AM [employer] HOST/HOSTESS Height 182.9 cm (6') 02/09/2024 11:38 AM [employer] HOST/HOSTESS Body Mass Index 27.53 02/09/2024 11:38 AM [employer]E [employer] HOST/HOSTESS Plan of Treatment Health Maintenance Due Date Last Done Comments Depression Screening 1945 Fall Risk Assessment 1945 Hepatitis C Screening 1945 Hepatitis B Screening 1963 Zoster Vaccine (1 of 2) 1996 Well Visit 65+ 07/09/2011 DTaP/Tdap/Td Vaccine (1 - Tdap) 06/05/2014 5, 08/23/2001 Influenza Vaccine (#1) 2024 8, 12/24/2017, 12/15/2013 Pneumococcal vaccine 65+ Completed 018, 01/04/2018, 06/04/2014 Procedures Procedure Name Priority Date/Time Associated Diagnosis Comments SURGICAL PATHOLOGY Routine 12/16/2024 12 :00 AM CDT from Last 3 Months Results * Surgical pathology (12/16/2024 12:00 AM CDT) Skin, shave biopsy 12/16/2024 12/17/2024 6:20 AM CDT Narrative 12/18/2024 2:12 PM CDT EPIC results best viewed via link to PDF [facility] [address] [place] [address], [address], [place] [address] [email or web address] Note to Patients: This report may contain a detailed description of human tissue sent by a health care provider to the laboratory for pathologic evaluation. The content of this report is essential for diagnosis and may provide important critical findings. This information may be unfamiliar to patients to review without a medical professional present. It is advised that the patient review this report in the presence of a health care provider who can answer questions and explain the details. FINAL REPORT Patient Information: PATIENT NAME: DARIAN LANG SEX: M : 1945 (Age: 79) Specimen Information: COLLECTED: 12/16/2024 RECEIVED: 12/17/2024 REPORTED: 12/18/2024 Submitting Physician Information: Mamie Bethea [facility], [address] [place] [address], DERMATOPATHOLOGY REPORT RESULTS DIAGNOSIS: A. SKIN, LEFT INFERIOR POSTAURICULAR SKIN, SHAVE BIOPSY: PIGMENTED ACTINIC KERATOSIS B. SKIN, RIGHT DORSAL WRIST, SHAVE BIOPSY: SOLAR LENTIGO ag/isr By this signature, I attest that the above diagnosis is based upon my personal examination of the slides(and/or other material indicated in the diagnosis). Doreen Sandoval M.D. Report Electronically Reviewed and Signed Out By Doreen Sandoval M.D. 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 Buds of atypical keratinocytes emanate from the undersurface of a pigmented epidermis. (L57.0) B. There is reticulated epidermal hyperplasia and hyperpigmentation. (L81.4) GROSS DESCRIPTION: A. Received in a formalin-containing bottle is a superficial fragment of brown, finely scaling and hair-bearing skin measuring 0.8 by 0.1 by 0.1 cm. The surgical margin is inked blue. The specimen is sectioned into 3 pieces and submitted entirely in a single cassette. Due to shrinkage, measurements may be different than those at time of procedure. B. Received in a formalin-containing bottle is a superficial fragment of pale craft, finely scaling, and hair-bearing skin measuring 0.6 by 0.6 by 0.2 cm. The surgical margin is inked blue. The specimen is sectioned into 3 pieces and submitted entirely in a single cassette. Due to shrinkage, measurements may be different than those at the time of procedure. dh/dxv ICD-9 ZSD.1449 ZSD.27 Clerical Data A; 59285 B; 04808 The characteristics of special, immunohistochemical, and immunofluorescence stains and in-situ hybridization tests performed by the [facility] were deemed acceptable in ongoing quality assurance coach measures and in compliance with regulations drawn from the Clinical Laboratory Improvement Act pf6402 (CLIA '88). Control reactions for all stains performed were deemed adequate and appropriate by a pathologist prior to evaluation of patient tissue. Some diagnoses were rendered with the assistance of laboratory-developed tests utilizing analyte-specific reagents; the performance characteristic of these tests were determined by [facility] and are not cleared or approved by the [place] Food an Drug administration. Laboratory developed test may only be performed in a facility that is certified by the [facility] as a high-complexity laboratory under CLIA '88. These tests are used for clinical purposes and are not investigational. us Notinfile Unknown LAB PATHOLOGY ORDERABLES Final Result from Last 3 Months Insurance [employer] Member Subscriber Plan / Payer ( fective 2017-Present) Name:Candy Langerwin Gupta Relation to Subscriber:Self Name:Darian Lang Payer ID:[id number] Group ID:Not on file Type:COMMERCIAL Address: [facility] [address] [place], [place] MEDICARE PHYSICIANS [facility] [employer] Care Teams Cost Control Analyst Relationship Specialty Start Date End Date Tess Leyva MD PCP - General Family Practice 07/16/21
--- OUTSIDE RECORDS SUMMARY | 2025-02-05 08:15 | XMS_ITS | Encounter Summary ---
Author Organization [facility] Address [address] [place] [address] Care Team Providers Care Mill Hand Name Role Phone Peter Greene MD Primary Care Provider [phone] Encounter Details Date Type Department Care Team (Late st Contact Info) Description 06/26/2017 Lab Requisition [facility] [address] [facility] [facility] [address] [place] [address] Leeroy Lance MD [address] [place] [address] Social History Tobacco Use Types Packs/Day Years Used Date Smoking Tobacco: Never Assessed Sex and Gender Information Value Date Recorded Sex Assigned at Not on file Legal Sex Male 5:33 PM PHARMACIST INTERN Gender Identity Not on file Sexual Orientation Not on file documented as of this encounter Plan of Treatment Not on file documented as of this encounter Procedures Procedure Name Priority Date/Time Associated Diagnosis Comments DERMATOPATHOLOGY Routine 06/23/2017 12:0 0 AM CDT documented in this encounter Results * DERMATOPATHOLOGY (06/23/2017 12:00 AM CDT) Case Report Dermatopathology Report Case: [id number] Authorizing Provider: Leeroy Lance MD Collected: 06/23/2017 [...] specimen consists of a shave biopsy measuring [id number]. The margin is inked green. Jar 0. [...] characteristic determined by the Dermatopathology Laboratory at [facility]. These tests need not be, and therefore are not, approved by the [place] Food and Drug Administration. The tests are used for clinical purposes. Billing Codes Specimen Charges Stain Charges 38883 1 2:26 PM CDT DERMATOPATHOLOGY LABORATORY Embedded Images 2:26 PM CDT DERMATOPATHOLOGY LABORATORY Pathology/Cytolog y TISSUE SPECIMEN FROM SKIN / Unknown 06/23/2017 06/26/2017 12:10 PM CDT us Leeroy Lance MD LAB - PATHOLOGY/CYTOLOGY ORD ERABLES Final Result DERMATOPATHOLOGY LABORATORY [facility] - Department of Dermatology [address] [facility] [facility] [place] [address], [facility] [phone] documented in this encounter Visit Diagnoses Not on filedocumented in this encounter Care Teams Mill Hand Relationship Specialty Start Date End Date Peter Greene MD [address] [place] [address] PCP - General 09/15/17 documented as of this encounter
[2025-02-05 18:45] LABS: Alanine Aminotransferase 37 U/L (6-50); Albumin Level 4.1 g/dL (3.5-5.1); Alkaline Phosphatase 77 U/L (38-126); Anion Gap 5 mmol/L (4-12); Aspartate Amino Transferase 56 U/L (17-59); Bilirubin,Total 0.5 mg/dL (0.2-1.3); Blood Urea Nitrogen 21 mg/dL (9-20); Calcium 9.0 mg/dL (8.4-10.2); Carbon Dioxide 30 mmol/L (22-30); Chloride 104 mmol/L (98-107); Cholesterol 168 mg/dL (0-200); Estimated Glomerular Filt Rate 47; Glucose 68 mg/dL (65-110); HDL Direct 60 mg/dL; Potassium 3.8 mmol/L (3.4-5.0); Sodium 139 mmol/L (137-145); Total Protein 7.2 g/dL (6.3-8.2); Triglycerides 82 mg/dL (<150)
[2025-02-05 18:52] LABS: Hematocrit 46.0 % (42.0-52.0); Hemoglobin 14.7 g/dL (14.0-18.0); Immature Granulocyte Percent A 0.2 % (0-0.5); Lymphocytes Absolute Auto 1.01 K/mm3 (0.9-3.2); Mean Corpuscular HGB Conc 32.0 g/dl (32-36); Mean Corpuscular Hemoglobin 30.2 pg (26-34); Mean Corpuscular Volume 94.5 fl (80-100); Nucleated Red Blood Cells Absolute Auto 0.000 K/mm3 (0.0-0.012); Nucleated Red Blood Cells Perc 0.0 % (0.0-0.2); Platelet Count Result 275 k/mm3 (150-375); Red Blood Count 4.87 M/mm3 (4.6-6.20); White Blood Count 5.5 K/mm3 (4.5-10.0)
[2025-02-05 19:17] LABS: Thyroid Stimulating Hormone Reflex 2.360 uIU/mL (0.465-4.68)
[2025-02-05 19:39] LABS: Vitamin B12 570.0 pg/mL (239-931)
[2025-02-05 19:56] LABS: Hemoglobin A1C 5.6 % (<5.7)
[2025-02-06 14:09] LABS: Anti-CCP Ab, IgG/IgA 9 units (0-19)
[2025-02-07 11:08] LABS: ANA by IFA Rfx Titer/Pattern Negative (.)
== END 2025-02-05 08:07 | disposition home or self-care (01) ==
LOC: ANHGOSHLAB 08:07
PROVIDERS: PCP Family Medicine; Visit Provider Family Medicine
DX: R73.9 Hyperglycemia, unspecified (principal); M25.549 Pain in joints of unspecified hand; Z79.899 Other long term (current) drug therapy; E78.5 Hyperlipidemia, unspecified; I10 Essential (primary) hypertension; E53.8 Deficiency of other specified B group vitamins; Z00.00 Encounter for general adult medical examination without abnormal findings; E55.9 Vitamin D deficiency, unspecified
CPT/HCPCS: 36415; 80053; 80061; 82306; 82607; 83036; 84443; 85025; 85652; 86038; 86200; 86430